=== PATIENT | female | born 1990 | race Caucasian/White ===

== ENCOUNTER 2019-03-20 04:13 | Inpatient (IN) | payer SELFPAY ==
--- NOTE | 2019-03-20 04:50 | PCM.HP.OB ---
- Problem List (1) Active labor at term Status: Acute History Date of Admission: 03/20/19 Final HORTENCIA: 03/13/19 Gestational age: 41 Weeks and 0 Days History of this : This is a 28 year-old, at 41 weeks gestational age presents IAL 4 cm dilated. she has a history of previous vaginal births and has had a complicated by varicose veins and pelvic pain. She has been receiving care by the clay digger Shruthi Smith and has had no significant complications but her drafter chief design was recommending hospital due to her varicose veins. NST - FHR Rate Baby A Baseline: 130 Variability:: Moderate Accelerations:: 15 x 15 Decelerations:: None NST Reactive:: Yes FHR Category:: Category I Uterine Activity:: q3-4 History Past Pregnancies: Past Pregnancies 2 miscarriages and 4 previous term vaginal deliveries uncomplicated Expected Infant Delivery Method: Spontaneous Vaginal Review of Systems Constitutional: Denies: Fever, Malaise Eyes: Denies: Blurred vision, Vision Change HEENT: Denies: Head Aches, Visual Changes Cardiovascular: Denies: Chest Pain, Palpitations Respiratory: Denies: Cough, Shortness of Breath, Wheezing Gastrointestinal: Denies: Abdominal Pain, Diarrhea, Nausea, Vomiting Genitourinary: Denies: Dysuria, Hematuria Musculoskeletal: Denies: Joint Pain, Muscle pain Skin: Denies: Lesions, Rash Neurological: Denies: Blurred vision, Focal weakness, Headaches Psychiatric: Denies: Anxiety, Depression Endocrine: Denies: Heat/ Cold Intolerance Hematologic/ Lymphatic: Denies: Easy Bruising, Easy Bleeding Physical Exam General: Alert, Cooperative, No apparent distress HEENT: Atraumatic, Normocephalic. Negative for: Thyromegaly, Lymphadenopathy Cardiovascular: Regular rate Lungs: Normal air movement Abdomen: Soft, Non Tender, Gravid Neurological: Deep Tendon Reflexes 2+/4 and Symmetrical, Neuro grossly intact. Negative for: Clonus PRIMARY EDUCATION PROFESSOR: Normal external genitalia. Negative for: Vulvar lesions Estimated gestational size: Appropriate for gestational size Presentation: Cephalic Cervix Dilation (cm): 4 Station: -1 Effacement (%): 90 Assessment/Plan All Active Problems Active labor at term (Acute) This is a 28 year-old, at 41 weeks gestational age presents IAL. Patient presents IAL, plan expectant management for , pitocin/AROM PRN if needed. Pain management: Prefers minimal intervention. GBS unknown, no risk factors. Rapid GBS sent. Management of any complications: Large varicose veins I have reviewed the [facility] and made any clinically relevant updates.
[2019-03-20] MEDS: 0.9% Saline Lock 10 ML Syringe IV (05:00)
[2019-03-20 05:24] LABS: Absolute Lymphocyte Count 1.11 X10^3/uL (0.83-4.51); Basophil# 0.05 X10^3/uL; Basophil% 0.8 % (0-1); Eosinophil# 0.07 X10^3/uL; Eosinophils% 1.1 % (0-5); Hematocrit 38.9 % (37-47); Hemoglobin 13.5 g/dL (12.0-15.0); Lymphocyte # 1.11 X10^3/ul (4.0); Lymphocyte % 16.7 % (19-41); Mean Corp Hgb Conc 34.7 g/dL (32-36); Mean Corpuscular Hgb 30.9 pg (27.0-32.0); Mean Platelet Vol. 10.1 fl (6.2-12.0); Monocyte# 0.43 X10^3/uL; Monocyte% 6.5 % (0-10); NRBC Flagged by Analyzer 0 % (0-5); Neutrophil # 4.95 X10^3/uL (2.7-7.7); Neutrophil % 74.1 % (47-70); Platelet Count 103 K/mm3 (150-450); RBC Distribution Width CV 13.4 % (11.6-14.6); RBC Distribution Width SD 43.4 fl (35.1-43.9); Red Blood Count 4.37 M/mm3 (4.2-5.4); White Blood Count 6.7 K/mm3 (4.4-11.0)
[2019-03-20 05:28] VITALS: BMI 30.3
[2019-03-20 07:11] LABS: HIV - WCH Non-Reactive (Nonreactive); Hepatitis B Surface Antigen Non-Reactive (Nonreactive); Hepatitis C Antibody Non-Reactive (Nonreactive)
[2019-03-20 07:42] LABS: Group B Strep DNA By PCR Negative (Negative); Internal Control PASS; Probe Check PASS; Specimen Processing Control PASS
[2019-03-20] MEDS: Oxytocin 30 units/NS 500 ml 30 UNITS/500 ML IV.SOLN 334 UNITS IV (07:55)
--- NOTE | 2019-03-20 08:41 | PCM.OPRPT ---
Problem List (1) Active labor at term Status: Acute Vaginal Delivery Maternal Presentation: Active Labor ial Amniotic Membrane Rupture Type: Artificial Amniotic Fluid Description: Clear Final HORTENCIA: 03/13/19 Gestational age: 41 Weeks and 0 Days Date of Procedure: 03/20/19 Pre-Operative Diagnosis: ial Post-Operative Diagnosis: same Surgery/ Procedure Performed: Spontaneous Vaginal Delivery Type of Anesthesia: None Description of Procedure: Patient began pushing and delivered the head in the JABIER presentation. The head was delivered atraumatically. The anterior and posterior shoulders delivered without complication followed by the rest of the infant and the was placed on the maternal abdomen. Delayed cord clamping was employed for approximately 60 seconds. Cord was clamped and cut and gentle traction was applied to the cord and the placenta delivered spontaneously immediately following it was noted to be intact with three-vessel cord. The perineum and vagina were inspected and noted to have no laceration. EBL was 100 cc. Patient and infant tolerated delivery well. Presentation: JABIER Placental Delivery Description: Spontaneous Cord Entanglement: None Estimated Blood Loss: 100 A gender: Male Episiotomy Description: None Laceration: None Medications given after delivery: IV Pitocin Complications: None Multi Select Codes - Urinary/Genital Urinary/Genital CPT Codes: 50517 Vaginal Delivery Only
[2019-03-20 10:33] LABS: Rubella IgG 270.9 IU/mL
[2019-03-20 13:11] VITALS: BP 94/54; PULSE 87; RESP 16; TEMP 36.8
[2019-03-20 15:53] VITALS: BP 111/60; PULSE 82; RESP 16; TEMP 37.1
[2019-03-20] MEDS: Naproxen 250 MG Tablet 500 MG PO (16:37)
--- NOTE | 2019-03-20 18:06 | NURSING ---
pt c/o pain on the outter side of her left foot that has multiple varicosities- pts foot elevated
[2019-03-20 19:46] VITALS: BP 106/64; PULSE 94; RESP 17; TEMP 36.4
[2019-03-20] MEDS: Acetaminophen 500 MG Tablet 1000 MG PO (19:47)
--- NOTE | 2019-03-20 22:22 | DCINST_ITS ---
Discharge Diet: No Restrictions Discharge Activity: Return to Normal Activity, May not drive while taking narcotic pain medications., May Shower May resume sexual activity in: 4-6 weeks Call your doctor if your incision/area has: Continuous Slow Oozing, Sudden Increased Bleeding, Increased Pain/ Swelling, Increased Redness, Foul Smelling Discharge Additional Instructions: If you experience any of the following, contact your healthcare provider. * Bleeding that soaks a pad every hour for 2 hours * Fever 100.4 or higher * Unrelieved incision or abdominal pain * Swelling, redness, discharge or bleeding from your incision or episiotomy site * Your incision begins to separate * Problems urinating (including inability to urinate or burning while urinating). * Visual changes * Severe headache * Flu-like symptoms * Pain or redness in one of both of your breasts * Pain, warmth, tenderness or swelling in your legs, especially the calf area * Frequent nausea and vomiting * Symptoms of depression or anxiety If you experience any of the following, call 911 or go to the nearest Emergency Room. * Chest pain * Problems breathing * Seizure activity * Partial or complete paralysis of a body part, slurred speech, weakness or drooping of the face, or a sudden inability to walk or hold your balance Allergies/Adverse Reactions: Allergies No Known Allergies Allergy (Verified 03/20/19 05:24) Please Follow Up With: Harriett Acevedo MD - [phone] When: Call to make an appointment with your doctor in 6 weeks. If you had elevated Blood pressure or 4th degree laceration you will need to be seen in 2 weeks. Primary Care Physician: Care Physician,No Primary [Primary Care Provider] - Test Results: Test results from this visit will be discussed in further detail at your follow- up appointment, if applicable.
--- NOTE | 2019-03-20 22:22 | PCM.DCVAG ---
Discharge Diet: No Restrictions Discharge Activity: Return to Normal Activity, May not drive while taking narcotic pain medications., May Shower May resume sexual activity in: 4-6 weeks Call your doctor if your incision/area has: Continuous Slow Oozing, Sudden Increased Bleeding, Increased Pain/ Swelling, Increased Redness, Foul Smelling Discharge Additional Instructions: If you experience any of the following, contact your healthcare provider. Bleeding that soaks a pad every hour for 2 hours Fever 100.4 or higher Unrelieved incision or abdominal pain Swelling, redness, discharge or bleeding from your incision or episiotomy site Your incision begins to separate Problems urinating (including inability to urinate or burning while urinating). Visual changes Severe headache Flu-like symptoms Pain or redness in one of both of your breasts Pain, warmth, tenderness or swelling in your legs, especially the calf area Frequent nausea and vomiting Symptoms of depression or anxiety If you experience any of the following, call 911 or go to the nearest Emergency Room. Chest pain Problems breathing Seizure activity Partial or complete paralysis of a body part, slurred speech, weakness or drooping of the face, or a sudden inability to walk or hold your balance Allergies/Adverse Reactions: Allergies No Known Allergies Allergy (Verified 03/20/19 05:24) Please Follow Up With: Harriett Acevedo MD - [phone] When: Call to make an appointment with your doctor in 6 weeks. If you had elevated Blood pressure or 4th degree laceration you will need to be seen in 2 weeks. Primary Care Physician: Care Physician,No Primary [Primary Care Provider] - Test Results: Test results from this visit will be discussed in further detail at your follow-up appointment, if applicable.
[2019-03-21 00:05] VITALS: BP 99/57; PULSE 84; RESP 17
[2019-03-21] MEDS: Naproxen 250 MG Tablet 500 MG PO (00:07)
[2019-03-21 03:32] VITALS: BP 109/67; PULSE 90; RESP 16; TEMP 36.2
[2019-03-21] MEDS: Acetaminophen 500 MG Tablet 1000 MG PO (03:33)
[2019-03-21 08:00] VITALS: BP 101/55; PULSE 77; RESP 16; TEMP 36.3
--- NOTE | 2019-03-21 08:31 | PCM.PN.OB ---
Patient Problems: Active and Suspected Problems Active labor at term (Acute) Subjective: doing well no complaints pain controlled no CP SOB N V ambulating well tolerating po lochia moderate, going well - Physical Exam Vitals/I&O's: Vital Signs Temp Pulse Resp BP 97.1 F L 90 16 109/67 03/21/19 03:32 03/21/19 03:32 03/21/19 03:32 03/21/19 03:32 Oxygen Delivery Method Room Air Weight: 176 lb 12.972 oz Body Mass Index (BMI) 30.3 Intake and Output for Last 24 Hours 03/19/19 03/20/19 03/21/19 23:59 23:59 23:59 Intake Total 1100.00 / 1100.00 Output Total 700 / 700 Balance 400.00 / 400.00 General: Alert, Oriented x3 Abdomen: Soft, Non Tender, Non-Distended, - - FF below U Laboratory Results 03/20/19 05:00: Rubella IgG Antibody 270.9 03/20/19 10:15: Screen NEGATIVE, Baby's Blood Type O POSITIVE, Baby's CHANCE NEGATIVE Current Medications Acetaminophen (Tylenol) 1,000 mg PO Q8H PRN PRN PRN Reason: Pain Score 1-3/10 Last Admin: 03/21/19 03:33 Dose: 1,000 mg Documented by: Bisacodyl (Dulcolax) 10 mg RECTAL UD PRN PRN Reason: If no BM Dibucaine (Dibucaine) 1 applic TOPICAL TID PRN PRN; Protocol PRN Reason: Discomfort Hydrocortisone (Hytone) 1 applic TOPICAL TID PRN PRN; Protocol PRN Reason: Discomfort Methylergonovine Maleate (Methergine) 0.2 mg IM X1 PRN PRN Reason: Excess bleeding/uterine atony Naproxen (Naprosyn) 500 mg PO Q8H PRN PRN PRN Reason: Pain Score 1-3/10 Last Admin: 03/21/19 00:07 Dose: 500 mg Documented by: Ondansetron HCl (Zofran) 4 mg IV Q4H PRN PRN PRN Reason: Nausea Oxycodone HCl (Oxyir) 5 - 10 mg PO Q4H PRN PRN PRN Reason: Pain Score 4-10/10 Senna/Docusate Sodium (Senokot-S, Eve-Colace) 1 - 2 tablet PO DAILY PRN PRN PRN Reason: Constipation Simethicone (Mylicon) 80 mg PO PCHS PRN PRN Reason: Indigestion/Stomach pain Sodium Chloride () 5 - 15 ml IV UD PRN PRN Reason: SALINE FLUSH Medical Necessity - Tobacco Use Smoking Status: Never smoker Assessment/Plan All Active Problems Active labor at term (Acute) s/p PPD # 1 1. routine post delivery care 2. breast feeding- support given 3. rh negative-rhogam candidate 4. rubella immune 5. home today. 6. Considering IUD for contraception due to severity of varicose veins. Minimal swelling left ankle today.
[2019-03-21 13:50] VITALS: BP 92/53; PULSE 84; RESP 16; TEMP 36.2; O2SAT 98
[2019-03-27 02:45] LABS: Rapid Plasmin Reagin (RPR) NONREACTIVE (NONREACTIVE)
== END 2019-03-21 17:45 | disposition home or self-care (01) | DRG 807 ==
PROVIDERS: Admitting Provider Obstetrics & Gynecology; Referring Provider Obstetrics & Gynecology; Visit Provider Obstetrics & Gynecology
DX: O87.4 Varicose veins of lower extremity in the puerperium (principal); Z37.0 Single live birth; O48.0 Post-term pregnancy; Z3A.40 40 weeks gestation of pregnancy
CPT/HCPCS: 59025; 59050; 85025; 85461; 86592; 86703; 86762; 86803; 86850; 86900; 86901; 87081; 87340; 87653; 90384; 99218; A4216; G0378; J2790

== ENCOUNTER → 2019-05-30 13:09 | Outpatient (CLI) | payer OTHER, SELFPAY ==
[2019-05-30 10:16] VITALS: BMI 30.3
[2019-06-03 14:38] LABS: HPV Reflexed? NOT INDICATED
== END ==
PROVIDERS: Referring Provider Obstetrics & Gynecology; Visit Provider Obstetrics & Gynecology
DX: Z12.4 Encounter for screening for malignant neoplasm of cervix (principal)
CPT/HCPCS: 88175; G0145

== ENCOUNTER → 2024-07-21 | Outpatient (CLI) | payer SELFPAY ==
[2024-07-28 16:08] LABS: HPV APTIMA, High Risk Negative (Negative)
== END | disposition home or self-care (01) ==
LOC: LABSPEC 16:01
PROVIDERS: Referring Provider Obstetrics & Gynecology; Visit Provider Obstetrics & Gynecology
DX: Z12.4 Encounter for screening for malignant neoplasm of cervix (principal)
CPT/HCPCS: 87624; 88175; G0145

== ENCOUNTER → 2024-11-12 | Outpatient (CLI) | payer OTHER, SELFPAY ==
[2024-11-12 12:09] LABS: Hematocrit 39.4 % (37-47); Hemoglobin 13.9 g/dL (12.0-15.0); Immature Granulocytes Count 0.020 X10^3/uL (0.0-0.0); Mean Corp Hgb Conc 35.3 g/dL (32-36); Mean Corpuscular Volume 87.8 fL (81-99); Mean Platelet Vol. 10.3 fl (6.2-12.0); NRBC Flagged by Analyzer 0 % (0-5); Platelet Count 163 K/mm3 (150-450); RBC Distribution Width CV 12.4 % (11.6-14.6); RBC Distribution Width SD 39.4 fl (35.1-43.9); Red Blood Count 4.49 M/mm3 (4.2-5.4); White Blood Count 5.5 K/mm3 (4.4-11.0)
[2024-11-12 13:07] LABS: HIV Nonreactive (Nonreactive); Hepatitis B Surface Antigen Nonreactive (Nonreactive); Hepatitis C Antibody Nonreactive (Nonreactive); Syphilis Antibodies Nonreactive (Nonreactive)
[2024-11-14 06:07] LABS: Chlamydia By Nucleic Acid AMP Negative (Negative); Gonococcus By Nucleic Acid AMP Negative (Negative)
== END | disposition home or self-care (01) ==
PROVIDERS: Obstetrics & Gynecology; Visit Provider Nurse Practitioner Women's Health
DX: O09.90 Supervision of high risk pregnancy, unspecified, unspecified trimester (principal); O99.210 Obesity complicating pregnancy, unspecified trimester; Z3A.00 Weeks of gestation of pregnancy not specified
CPT/HCPCS: 36415; 83036; 85025; 86703; 86762; 86780; 86803; 86850; 86900; 86901; 87086; 87088; 87340; 87491; 87591

== ENCOUNTER → 2024-12-03 | Outpatient (CLI) | payer MEDICAID, SELFPAY ==
--- NOTE | 2024-12-03 08:10 | US_ITS ---
PROCEDURE: TRANSVAGINAL W/PREG US 12/03/2024 REASON FOR EXAM: CERVICAL LENGTH TECHNIQUE: TRANSVAGINAL W/PREG US COMPARISON: None FINDINGS There is a live intrauterine . Position is cephalic. heart motion = 152 beats per minute. Cervix length = 4.0 cm and is closed. The cervical os is 1.5 cm from the margin of the placenta. The placenta is posterior, low lying, grade 1. An anechoic areas seen in the mid placenta with the appearance of the placenta Nieves. There is no visible abruption. Maximum vertical pocket of amniotic fluid = 4.2 cm Feel age equals 16 weeks 4 days Estimated due date May 16, 2025 US/Transvaginal w/Preg US IMPRESSION: The placenta is posterior, low lying, grade 1. An anechoic areas seen in the mi d placenta with the appearance of the placenta Nieves. There is no visible abruption. Reading Location: [facility]
== END | disposition home or self-care (01) ==
PROVIDERS: Referring Provider Obstetrics & Gynecology; Visit Provider Obstetrics & Gynecology
DX: O26.899 Other specified pregnancy related conditions, unspecified trimester (principal); Z67.91 Unspecified blood type, Rh negative; O20.9 Hemorrhage in early pregnancy, unspecified; Z3A.00 Weeks of gestation of pregnancy not specified
CPT/HCPCS: 36415; 76817; 86850; 86900; 86901

== ENCOUNTER → 2024-12-30 | Outpatient (CLI) | payer SELFPAY, MEDICAID ==
--- NOTE | 2024-12-30 12:17 | US_ITS ---
PROCEDURE: OB ANATOMY W/ TRANSVAGINAL 12/30/2024 REASON FOR EXAM: ANATOMY US TECHNIQUE: OB ANATOMY W/ TRANSVAGINAL COMPARISON: None FINDINGS LMP: August 09, 2024 Number: 1 Position: Vertex Placental Position: Posterior and not low-lying Placental Abnormalities: No evidence of previa. DIMENSIONS: Biparietal Diameter: 4.5 cm: 19 weeks and 5 days: 21 percentile/ Head Circumference: 17.1 cm: 19 weeks and 5 days:/ Abdominal Circumference: 15.1 cm: 20 weeks and 2 days:/ Femur Length: 3.2 cm: 19 weeks and 6 days:/ ESTIMATED WEIGHT: 330 g plus/-50 g ESTIMATED WEIGHT PERCENTILE (24+ weeks): 27 ESTIMATED GESTATIONAL AGE: Baseline: 20 weeks and 3 days By Ultrasound: 19 weeks and 5 days ESTIMATED DATE OF DELIVERY: Baseline: May 16, 2024 By Ultrasound: May 21, 2024 BIOPHYSICAL ASSESSMENT: Amniotic Fluid Volume: 4.6 cm Amniotic Fluid Index: Within normal limits (8-24 cm normal range) Cardiac Motion: 152 beats per minute (average) Trunk and Limb Motion: Present. MATERNAL ANATOMY: Adnexa: Both maternal ovaries are visualized and unremarkable. Cervical Length (if measured): 4.3 cm ANATOMY: Spine: Unremarkable Cranium: Unremarkable Cerebellum: Unremarkable Cisterna Magna: Unremarkable Cavum Septum Pellucidi: Unremarkable Lateral Ventricles: Unremarkable Choroid Plexus: Unremarkable Midline Falx: Unremarkable Nuchal Fold: Unremarkable Upper Lip: Unremarkable Heart: Unremarkable Stomach: Unremarkable Kidneys: Unremarkable Bladder: Unremarkable Umbilical Cord: Normal placental insertion. cord insertion not seen well. Extremities: Unremarkable US/OB Anatomy w/ Transvaginal IMPRESSION: Single live intrauterine gestation with a mean gestational age of 19 weeks and 5 days. Reading Location: [id number]
--- OUTSIDE RECORDS SUMMARY | 2024-12-30 20:55 | XMS RPT_ITS | CCD ---
Author Organization [facility] Care Team Providers Care Bulldozer/Loader/Compactor/Scraper Name Role Phone Kristina HERNADEZ, Dr. Lorenzana Attending Provider [phone] Kristina HERNADEZ, Dr. Lorenzana Referring Provider [phone] Clara Araiza RN Attending Provider Yadi Herrera Attending Provider [phone] Kristina HERNADEZ, Dr. Lorenzana Attending Provider Dr. Toma Gautam DO Attending Provider Kristina HERNADEZ, Dr. Lorenzana Referring Provider [phone] Care Physician, No Primary Primary Care Provider Unavailable Care Physician, No Primary Referring Provider Un available Harriett Acevedo Attending Unavailable Harriett Acevedo Referring Unavailable Harriett Acevedo Referring Unavailable Harriett Acevedo Attending Unavailable Care Physician, No Primary Primary Care Unava ilable Care Physician, No Primary Primary Care Unava ilable Care Physician, No Primary Referring Unava ilable Toma Gautam Attending Clara Dodson Attending Unavailable Harriett Acevedo Attending Unavailable Harriett Acevedo Attending Unavailable Harriett Acevedo Referring Unavailable Care Physician, No Primary Primary Care Unava ilable Care Physician, No Primary Primary Care Unava ilable Care Physician, No Primary Referring Unava ilable Toma Gautam Attending Harriett Ryan Attending Unavailable Toma Gautam Attending Yadi Blanton NP Attending Unavailable Medications Current Medications Medication Drug Class(es) Dates Sig (Normalized) Sig (Original) docosahexaenoic acid 200 mg oral capsule (6 sources) Start: 11-11-2024 Docosahexaenoic Acid ( Dha) 200 mg capsule Active mg PO November 11, 2024 12:00am Completed/Discontinued Medications Medication Drug Class(es) Dates Sig (Normalized) Sig (Original) levonorgestrel 0.743504 mg/hr intrauterine system (7 sources) Progestin, Progestin-containi ng Intrauterine Device Start: 07-21-2024 End: 11-11-2024 Levonorgestrel (Liletta) 20.4 mcg/24 hr (8 yrs) 52 mg intrauterine device Discontinued 1 NMA INTRA-UTER ONCE July 21, 2024 12:00am November 11, 2024 9:28am as a single dose Problems Problem Classification Problem Date Documented Da te Episodic/Chronic Cancer of cervix (20 sources) Atypical squamous cells of undetermined significance on cervical Papanicolaou smear; Translations: [Atypical squamous cells of undetermined significance on cytologic smear of cervix (ASC-US)] Onset: 12-30-2024 08-05-2024 Episodic Comment on above: pap in 2019 negative . pap 2024 ascus w/neg hpv=repeat pap 2027 Hemorrhage during ; abruptio placenta; placenta previa (16 sources) Antepartum hemorrhage; Translations: [Hemorrhage in early , unspecified] Onset: 12-30-2024 12-02-2024 Episodic Comment on above: pelvic rest + repeat scan at 28 weeks. rhogam 16 weeks. Other complications of (20 sources) Maternal obesity complicating , childbirth and the puerperium, antepartum; Translations: [Obesity complicating , unspecified trimester] 11-11-2024 Chronic Comment on above: BMI 30.9; HgBA1C ord ered w/NOB Other complications of (2 sources) Obesity complicating , unspecified trimester; Translations: [Obesity complicating , unspecified trimester] Onset: 11-12-2024 Chronic Other complications of (20 sources) H/O: miscarriage; Translations: [Supervision of with other poor reproductive or obstetric history, unspecified trimester] 11-11-2024 Episodic Comment on above: x2; 2018 Other complications of (20 sources) Multigravida of advanced maternal age; Translations: [Supervision of elderly multigravida, unspecified trimester] 11-12-2024 Episodic Comment on above: genetic counseling- declined testing. Other complications of (20 sources) High risk ; Translations: [Supervision of high risk , unspecified, unspecified trimester] 11-11-2024 Episodic Comment on above: , HORTENCIA 05/16, PC: Kirk Celaya Steven, Marline & Fab, : Helio Other complications of (20 sources) RhD negative; Translations: [Other specified related conditions, unspecified trimester] 11-11-2024 Episodic Comment on above: A-, Rhogam as needed and PRN Other complications of (2 sources) Supervision of high risk , unspecified, unspecified trimester; Translations: [Supervision of high risk , unspecified, unspecified trimester] Onset: 12-30-2024 Episodic Other complications of (1 source) Other specified related conditions, unspecified trimester; Translations: [Other specified related conditions, unspecified trimester] Onset: 12-30-2024 Episodic Other complications of (1 source) Supervision of elderly multigravida, unspecified trimester; Translations: [Supervision of elderly multigravida, unspecified trimester] Onset: 12-30-2024 Episodic Other complications of (1 source) Supervision of with other poor reproductive or obstetric history, unspecified trimester; Translations: [Supervision of with other poor reproductive or obstetric history, unspecified trimester] Onset: 12-30-2024 Episodic Other and delivery including normal (20 sources) Normal labor; Translations: [] 03-20-2019 Episodic Comment on above: Discussed genetic/ca rrier testing - declined Other screening for suspected conditions (not mental disorders or infectious disease) (1 source) Encounter for screening for malignant neoplasm of cervix; Translations: [Encounter for screening for malignant neoplasm of cervix] Onset: 11-21-2024 Episodic Other upper respiratory disease (7 sources) Seasonal allergy; Translations: [Other seasonal allergic rhinitis] 07-21-2024 Chronic Residual codes; unclassified (20 sources) Family history of genetic disorder carrier; Translations: [Family history of carrier of genetic disease] 11-11-2024 Episodic Comment on above: Sister & brother in law carriers for Cockayne Syndrome and have children dx with or passed from Residual codes; unclassified (1 source) Unspecified blood type, Rh negative; Translations: [Unspecified blood type, Rh negative] Onset: 12-30-2024 Episodic Residual codes; unclassified (1 source) Family history of carrier of genetic disease; Translations: [Family history of carrier of genetic disease] Onset: 12-30-2024 Episodic Residual codes; unclassified (1 source) 16 weeks gestation of ; Translations: [16 weeks gestation of ] Onset: 12-30-2024 Episodic Residual codes; unclassified (1 source) 15 weeks gestation of ; Translations: [15 weeks gestation of ] Onset: 12-17-2024 Episodic Residual codes; unclassified (1 source) 13 weeks gestation of ; Translations: [13 weeks gestation of ] Onset: 12-08-2024 Episodic Results Test Name Value Interpretation Reference Range Facility OB Anatomy w/ Transvaginalon 12-30-2024 OB Anatomy w/ Transvaginal [facility] Imaging Services [address] [place] [address] OB Anatomy w/ Transvaginal MR#: [id number] Acct: [id number] Name: SHARA MONTES Rep #: [id number] : 1990 F 34 From: Bebeto page MD PCP: Care Physician,No Primary Status: REG CLI Study: OB Anatomy w/ Transvaginal Date of Exam: 12/30 Exam# [id number] Ordering Dr: Harriett Acevedo PROCEDURE: OB ANATOMY W/ TRANSVAGINAL 12/30/2024 REASON FOR EXAM: ANATOMY US TECHNIQUE: OB ANATOMY W/ TRANSVAGINAL COMPARISON: None FINDINGS LMP: August 09, 2024 Number: 1 Position: Vertex Placental Position: Posterior and not low-lying Placental Abnormalities: No evidence of previa. DIMENSIONS: Biparietal Diameter: 4.5 cm: 19 weeks and 5 days: 21 percentile/ Head Circumference: 17.1 cm: 19 weeks and 5 days:/ Abdominal Circumference: 15.1 cm: 20 weeks and 2 days:/ Femur Length: 3.2 cm: 19 weeks and 6 days:/ ESTIMATED WEIGHT: 330 g plus/-50 g ESTIMATED WEIGHT PERCENTILE (24+ weeks): 27 ESTIMATED GESTATIONAL AGE: Baseline: 20 weeks and 3 days By Ultrasound: 19 weeks and 5 days ESTIMATED DATE OF DELIVERY: Baseline: May 16, 2024 By Ultrasound: May 21, 2024 BIOPHYSICAL ASSESSMENT: Amniotic Fluid Volume: 4.6 cm Amniotic Fluid Index: Within normal limits (8-24 cm normal range) Cardiac Motion: 152 beats per minute (average) Trunk and Limb Motion: Present. MATERNAL ANATOMY: Adnexa: Both maternal ovaries are visualized and unremarkable. Cervical Length (if measured): 4.3 cm ANATOMY: Spine: Unremarkable Cranium: Unremarkable Cerebellum: Unremarkable Cisterna Magna: Unremarkable Cavum Septum Pellucidi: Unremarkable Lateral Ventricles: Unremarkable Choroid Plexus: Unremarkable Midline Falx: Unremarkable Nuchal Fold: Unremarkable Upper Lip: Unremarkable Heart: Unremarkable Stomach: Unremarkable Kidneys: Unremarkable Bladder: Unremarkable Umbilical Cord: Normal placental insertion. cord insertion not seen well. Extremities: Unremarkable US/OB Anatomy w/ Transvaginal IMPRESSION: Single live intrauterine gestation with a mean gestational age of 19 weeks and 5 days. Reading Location: [id number] CC: Dr. Harriett Acevedo MD; No Primary Care Physician Nuclear Chemistry Technician: Signed Normal [facility] Costumer Assistant Office Visit Reporton 12-30-2024 Costumer Assistant Office Visit Report [facility]'s [address], [address] [place] [address] OFFICE VISIT Date of Service: 12/30/24 MR#: [id number] Acct: [id number] Name: SHARA MONTES Rep #: [id number] : 1990 Provider: Dr. Toma Sage DO Age/Sex: 34/F Location: [facility] [place] Status: Signed Intake Vital Signs 11/12/24 10:39 12/03/24 09:23 12/30/24 10:13 12/30/24 10:13 Height 5 ft 4 in 5 ft 4 in 5 ft 4 in 5 ft 4 in Weight: 183 lb BMI 31.4 BP 98/66 Intake Visit Reasons: 20wk ob *ok per SM Landmen Required: No Is patient in pain?: No Allergies No Known Allergies Allergy (Verified 12/30/24 10:12) Medications ???Medication ???Instructions ???Recorded ???Confirmed ???Type docosahexaenoic acid 200 mg mg PO 11/11/24 12/30/24 History capsule ( DHA) Last Menstrual Period: 08/09/24 Zika: Zika virus screening: Negative : No PFSH PFSH Medical History Seasonal allergies Family History Grandmother Colon cancer, Onset Age: 81 Hypertension Sister Hypertension, Onset Age: 40 Grandfather CVA (cerebral vascular accident), Onset Age: 75 Social History adopted: No household members: spouse and children number of children: 5 current occupation: [employer] current occupational exposures/hazards: No pets and animals: Yes pets and animals: farm animals history of recent travel: Yes (September 2024 - ) out of state: Yes out of country: No sexually active: Yes Smoking Status: Never smoker second hand exposure: No alcohol intake: never substance use type: does not use well-balanced diet: daily or most days caffeine: Yes Type: coffee Number of servings: 1 eating out: rarely or never during the past year weight has: remained stable what type of physical activity do you participate in: none kiana/sabianism: Spiritism seatbelt use: always do you feel safe at home: Yes additional social history: : Liliane Pritchard History 8 Elective abortions Hx Para 5 Spontaneous abortions 2 Hx # Term Pregnancies 5 Ectopic pregnancies Hx # Pregnancies Multiple births # of living children 5 Past Pregnancies Del. Date Name GA/Weeks Outcome Route Bth Weight Infant Gen Labor Lgth Anesthesia Del Locatn Provider FOB 12/26/10 Belia 41 live - full term 7lbs 5oz Female none [facility] Helio 07/15/12 Kirk 40 live - full term 7lbs 12oz Male none Home Helio 05/31/14 Sinan 40 live - full term 7lbs 8oz Male none Home Helio 05/05/16 Pratima 40 live - full term 7lbs 2oz Male none Home Helio 06/14/17 7 spontaneous 04/13/18 10 spontaneous 03/20/19 Fab 40 live - full term 7lbs 13oz Male none [facility] Efraín Cadet Delivery Date: 03/20/19 Last Updated by: Clara Arazia RN Vein problems, Consultant Rn KRYSTYNA for delivery HPI 20wk ob *ok per Details: SHARA MONTES is a 34 year old who presents for routine OB visit. OB Visit HORTENCIA Calculator Estimated Delivery Date Method Current WG Current Estimate 05/16/25 LMP (Certain) 20w 3d Initial Weight: Not Recorded Date -???-???-???-???-???- ???-???-???-???-???-? ??-???- EGA Weight BP Urine Prot -???-???-???-???-???- ???-???-???-???-???-? ??-???- Glucose FHR FuHt Pres Dilation -???-???-???-???-???- ???-???-???-???-???-? ??-???- Effaced St Visit Note 11/12/24 -???-???-???-???-???- ???-???-???-???-???-? ??-???- 13w 4d 176 lb 115/76 -???-???-???-???-???- ???-???-???-???-???-? ??-???- 154 -???-???-???-???-???- ???-???-???-???-???-? ??-???- - CRL 6.8c m cons with LMP 11/25/24 -???-???-???-???-???- ???-???-???-???-???-? ??-???- 15w 3d 178 lb 106/69 Negative -???-???-???-???-???- ???-???-???-???-???-? ??-???- Negative 150 -???-???-???-???-???- ???-???-???-???-???-? ??-???- JV- patient is being seen urgently today for bleeding. She states it is mild and started sunday, went to brown sunday, red sunday, light pink yesterday, and nothing today. She denies recent intercourse or heavy lifting. ultrasound is reassuring and on exam there is a cervical ectropion. patient reassured. if bleeding starts again this week will order a cervical length ultrasound prior to her 20 week scan. 12/30/24 -???-???-???-???-???- ???-???-???-???-???-? ??-???- 20w 3d 183 lb 98/66 Negative -???-???-???-???-???- ???-???-???-???-???-? ??-???- Negative 145 -???-???-???-???-???- ???-???-???-???-???-? ??-???- JV- no furth er bleeding x 2 weeks now. has anatomy scan today at 12:30. has a lot of dilated varicosities and one that feels like a tiny clot at her nieto. If no problems on us t (more content not included)... Normal [facility] Costumer Assistant Office Visit Reporton 12-03-2024 Costumer Assistant Office Visit Report [facility]'s [address], [address] [place] [address] OFFICE VISIT Date of Service: 12/03/24 MR#: [id number] Acct: [id number] Name: SHARA MONTES Rep #: [id number] : 1990 Provider: Dr. Toam Sage DO Age/Sex: 34/F Location: [facility] [place] Status: Signed Intake Vital Signs 11/25/24 13:01 12/03/24 09:21 12/03/24 09:23 Height 5 ft 4 in 5 ft 4 in 5 ft 4 in Weight: 178 lb 176 lb 2 oz BMI 30.5 30.2 BP 106/69 116/77 [facility] Required: No Is patient in pain?: No Allergies No Known Allergies Allergy (Verified 12/03/24 09:22) Medications ???Medication ???Instructions ???Recorded ???Confirmed ???Type docosahexaenoic acid 200 mg mg PO 11/11/24 12/03/24 History capsule ( DHA) Last Menstrual Period: 08/09/24 Zika: Zika virus screening: Negative : No PFSH PFSH Medical History Seasonal allergies Family History Grandmother Colon cancer, Onset Age: 81 Hypertension Sister Hypertension, Onset Age: 40 Grandfather CVA (cerebral vascular accident), Onset Age: 75 Social History adopted: No household members: spouse and children number of children: 5 current occupation: [employer] current occupational exposures/hazards: No pets and animals: Yes pets and animals: farm animals history of recent travel: Yes (September 2024 - ) out of state: Yes out of country: No sexually active: Yes Smoking Status: Never smoker second hand exposure: No alcohol intake: never substance use type: does not use well-balanced diet: daily or most days caffeine: Yes Type: coffee Number of servings: 1 eating out: rarely or never during the past year weight has: remained stable what type of physical activity do you participate in: none kiana/sabianism: Spiritism seatbelt use: always do you feel safe at home: Yes additional social history: : Liliane Pritchard History 8 Elective abortions Hx Para 5 Spontaneous abortions 2 Hx # Term Pregnancies 5 Ectopic pregnancies Hx # Pregnancies Multiple births # of living children 5 Past Pregnancies Del. Date Name GA/Weeks Outcome Route Bth Weight Infant Gen Labor Lgth Anesthesia Del Locatn Provider FOB 12/26/10 Belia 41 live - full term 7lbs 5oz Female none [facility] 07/15/12 Kirk 40 live - full term 7lbs 12oz Male none Home Helio 05/31/14 Sinan 40 live - full term 7lbs 8oz Male none Home Helio 05/05/16 Rincon 40 live - full term 7lbs 2oz Male none Home Helio 06/14/17 7 spontaneous 04/13/18 10 spontaneous 03/20/19 Fab 40 live - full term 7lbs 13oz Male none [facility] S Helio Delivery Date: 03/20/19 Last Updated by: Clara Araiza RN Vein problems, Consultant Rn KRYSTYNA for delivery HPI Rhogam Details: SHARA MONTES is a 34 year old who presents for routine OB visit. OB Visit HORTENCIA Calculator Estimated Delivery Date Method Current WG Current Estimate 05/16/25 LMP (Certain) 17w 3d Initial Weight: Not Recorded Date -???-???-???-???-???- ???-???-???-???-???-? ??-???- EGA Weight BP Urine Prot -???-???-???-???-???- ???-???-???-???-???-? ??-???- Glucose FHR FuHt Pres Dilation -???-???-???-???-???- ???-???-???-???-???-? ??-???- Effaced St Visit Note 11/12/24 -???-???-???-???-???- ???-???-???-???-???-? ??-???- 13w 4d 176 lb 115/76 -???-???-???-???-???- ???-???-???-???-???-? ??-???- 154 -???-???-???-???-???- ???-???-???-???-???-? ??-???- SM- CRL 6.8c m cons with LMP 11/25/24 -???-???-???-???-???- ???-???-???-???-???-? ??-???- 15w 3d 178 lb 106/69 Negative -???-???-???-???-???- ???-???-???-???-???-? ??-???- Negative 150 -???-???-???-???-???- ???-???-???-???-???-? ??-???- JV- patient is being seen urgently today for bleeding. She states it is mild and started sunday, went to brown sunday, red sunday, light pink yesterday, and nothing today. She denies recent intercourse or heavy lifting. ultrasound is reassuring and on exam there is a cervical ectropion. patient reassured. if bleeding starts again this week will order a cervical length ultrasound prior to her 20 week scan. ACOG First Trimester First Trimester: Desire for , Alcohol, Tobacco Cessation, Illicit/Recreational Drug/Substance Use, Intimate Partner Violence, Barriers to care, Unstable Housing, Communication Barriers, Environmental/Work Hazards, Anticipated Course of Care, Toxoplasmosis Precations, Use of Any medications, Sexual activity, Exercise, Dental Care, Sauna/Hot tub use, Seat Belt use, Childb (more content not included)... Normal [facility] Transvaginal w/Preg USon Transvaginal w/Preg [facility] Imaging Services [address] [place], [place] [id number] Transvaginal w/Preg US MR#: [id number] Acct: [id number] Name: SHARA MONTES Rep #: [id number] : 1990 F 34 From: Kenneth Vasquez MD PCP: Care Physician,No Primary Status: REG CLI Study: Transvaginal w/Preg US Date of Exam: 12/03/24 Exam# [id number] Ordering Dr: Harriett Acevedo PROCEDURE: TRANSVAGINAL W/PREG US 12/03/2024 REASON FOR EXAM: CERVICAL LENGTH TECHNIQUE: TRANSVAGINAL W/PREG US COMPARISON: None FINDINGS There is a live intrauterine . Position is cephalic. heart motion = 152 beats per minute. Cervix length = 4.0 cm and is closed. The cervical os is 1.5 cm from the margin of the placenta. The placenta is posterior, low lying, grade 1. An anechoic areas seen in the mid placenta with the appearance of the placenta Nieves. There is no visible abruption. Maximum vertical pocket of amniotic fluid = 4.2 cm Feel age equals 16 weeks 4 days Estimated due date May 16, 2025 US/Transvaginal w/Preg US IMPRESSION: The placenta is posterior, low lying, grade 1. An anechoic areas seen in the mid placenta with the appearance of the placenta Nieves. There is no visible abruption. Reading Location: [facility] CC: Dr. Harriett Acevedo MD; No Primary Care Physician Nuclear Chemistry Technician: Signed Normal [facility] Type AND Screenon 12-03-2024 ABO and Rh group Nom (Bld) Blood group A Rh(D) negative Normal [facility] Comment on above: Order Comment: PN Performed By: #### B TS #### [facility] Laboratory [address] [place], [address] Laboratory - Chemistry and C hemistry - challengeOrdered By: Toma Tay on 11-25-2024 Glucose Ql (U) Negative [facility] Laboratory - UrinalysisOrder ed By: Toma Tay on 11-25-2024 Protein Ql (U) Negative [facility] Costumer Assistant Office Visit Reporton 11-25-2024 Costumer Assistant Office Visit Report [facility]'s [address], [address] [place] [address] OFFICE VISIT Date of Service: 11/25/24 MR#: [id number] Acct: [id number] Name: SHARA MONTES Rep #: [id number] : 1990 Provider: Dr. Toma Sage DO Age/Sex: 34/F Location: [facility] [place] [facility] Status: Signed Intake Vital Signs 11/12/24 10:39 11/25/24 13:01 Height 5 ft 4 in 5 ft 4 in Weight: 178 lb BMI 30.5 BP 106/69 Intake Visit Reasons: 15w3d, spotting since Sunday Chief Complaint: 15wk and spotting Landmen Required: No Is patient in pain?: No Allergies No Known Allergies Allergy (Verified 11/25/24 12:59) Medications ???Medication ???Instructions ???Recorded ???Confirmed ???Type docosahexaenoic acid 200 mg mg PO 11/11/24 11/25/24 History capsule ( DHA) Last Menstrual Period: 08/09/24 : No PFSH PFSH Medical History Seasonal allergies Family History Grandmother Colon cancer, Onset Age: 81 Hypertension Sister Hypertension, Onset Age: 40 Grandfather CVA (cerebral vascular accident), Onset Age: 75 Social History adopted: No household members: spouse and children number of children: 5 current occupation: [employer] current occupational exposures/hazards: No pets and animals: Yes pets and animals: farm animals history of recent travel: Yes (September 2024 - ) out of state: Yes out of country: No sexually active: Yes Smoking Status: Never smoker second hand exposure: No alcohol intake: never substance use type: does not use well-balanced diet: daily or most days caffeine: Yes Type: coffee Number of servings: 1 eating out: rarely or never during the past year weight has: remained stable what type of physical activity do you participate in: none kiana/sabianism: Spiritism seatbelt use: always do you feel safe at home: Yes additional social history: : Liliane Pritchard History 8 Elective abortions Hx Para 5 Spontaneous abortions 2 Hx # Term Pregnancies 5 Ectopic pregnancies Hx # Pregnancies Multiple births # of living children 5 Past Pregnancies Del. Date Name GA/Weeks Outcome Route Bth Weight Infant Gen Labor Lgth Anesthesia Del Locatn Provider FOB 12/26/10 Belia 41 live - full term 7lbs 5oz Female none [facility] 07/15/12 Kirk 40 live - full term 7lbs 12oz Male none Home Helio 05/31/14 Sinan 40 live - full term 7lbs 8oz Male none Home Helio 05/05/16 Rincon 40 live - full term 7lbs 2oz Male none Home Helio 06/14/17 7 spontaneous 04/13/18 10 spontaneous 03/20/19 Fab 40 live - full term 7lbs 13oz Male none [facility] Helio Delivery Date: 03/20/19 Last Updated by: Clara Araiza RN Vein problems, Consultant Rn KRYSTYNA for delivery HPI 15w3d, spotting since Sunday Details: SHARA MONTES is a 34 year old who presents for routine OB visit. OB Visit HORTENCIA Calculator Estimated Delivery Date Method Current WG Current Estimate 05/16/25 LMP (Certain) 15w 3d Initial Weight: Not Recorded Date -???-???-???-???-???- ???-???-???-???-???-? ??-???- EGA Weight BP Urine Prot -???-???-???-???-???- ???-???-???-???-???-? ??-???- Glucose FHR FuHt Pres Dilation -???-???-???-???-???- ???-???-???-???-???-? ??-???- Effaced St Visit Note 11/12/24 -???-???-???-???-???- ???-???-???-???-???-? ??-???- 13w 4d 176 lb 115/76 -???-???-???-???-???- ???-???-???-???-???-? ??-???- 154 -???-???-???-???-???- ???-???-???-???-???-? ??-???- SM- CRL 6.8c m cons with LMP 11/25/24 -???-???-???-???-???- ???-???-???-???-???-? ??-???- 15w 3d 178 lb 106/69 Negative -???-???-???-???-???- ???-???-???-???-???-? ??-???- Negative 150 -???-???-???-???-???- ???-???-???-???-???-? ??-???- JV- patient is being seen urgently today for bleeding. She states it is mild and started sunday, went to brown sunday, red sunday, light pink yesterday, and nothing today. She denies recent intercourse or heavy lifting. ultrasound is reassuring and on exam there is a cervical ectropion. patient reassured. if bleeding starts again this week will order a cervical length ultrasound prior to her 20 week scan. ACOG First Trimester First Trimester: Desire for , Alcohol, Tobacco Cessation, Illicit/Recreational Drug/Substance Use, Intimate Partner Violence, Barriers to care, Unstable Housing, Communication Barriers, Environmental/Work Hazards, Anticipated Course of Care, Toxoplasmosis Precations, Use of Any medications, Sexual activity, Exercise, Dental Care, Sauna/Hot tub use, Seat Belt use, Childbirth classes/Hospi (more content not included)... Normal [facility] Chlamydia/GC NING aptimaon CHLAMY,NUC ACID Negative Normal Negative [facility] Comment on above: Performed By: #### L 7000.1800, M100.2200 #### [facility] Laboratory [address] [place], [address] GC BY NUC ACID Negative Normal Negative [facility] Comment on above: Result Comment: Perf ormed at: =G - [facility] [address] [id number] Medical Accountant: Mariaelena Swenson MD, Phone: [phone] Performed By: #### L 7000.1800, M100.2200 #### [facility] [address] [place], [address] Urine Cultureon 11-14-2024 URC Mixed Gram Positive Organisms [place] Count 25,000-50,000 MIXC Mixed contaminants. Submit a new specimen if indicated. Normal [facility] Comment on above: Performed By: #### L 7000.1800, M100.2200 #### [facility] [address] [place], [address] Absolute lymphocyte countOrd ered By: Harriett Acevedo on 11-12-2024 Lymphocytes Auto (Unsp spec) [#/Vol] 1.33 10*3/uL 0.83-4.51 [facility] Absolute neutrophil countOrd ered By: Harriett Acevedo on 11-12-2024 Neutrophils (Bld) [#/Vol] 3.8 10*3/uL 2.0-7.7 [facility] Automated lymphocyte count a s percentage of total leukocytesOrdered By: Harriett Acevedo on 11-12-2024 Lymphocytes/100 WBC Auto (Unsp spec) 24.4 % 19-41 [facility] Basophil percentageOrdered B y: Harriett Acevedo on 11-12-2024 Basophils/100 WBC (Bld) 0.9 % 0-1 [facility] CBC W/Diff, Automatedon 07-0 2-2024 Absolute Lymph 1.33 X10 3/uL Normal 0.83-4.51 [facility] Comment on above: Performed By: #### L 3890.6006, L3890.6102, L509.8002, L100.0100, L509.4006, L501.9985, BTS, L3890.6301 #### [facility] [address] [place], [address] Absolute Neut 3.8 X10 3/uL Normal 2.0-7.7 [facility] Comment on above: Performed By: #### L 3890.6006, L3890.6102, L509.8002, L100.0100, L509.4006, L501.9985, BTS, L3890.6301 #### [facility] [address] [place], [address] Basophils/100 WBC (Bld) 0.9 % Normal 0-1 [facility] Comment on above: Performed By: #### L 3890.6006, L3890.6102, L509.8002, L100.0100, L509.4006, L501.9985, BTS, L3890.6301 #### [facility] [address] [place], [address] Eosinophils/100 WBC (Bld) 0.9 % Normal 0-5 [facility] Comment on above: Performed By: #### L 3890.6006, L3890.6102, L509.8002, L100.0100, L509.4006, L501.9985, BTS, L3890.6301 #### [facility] [address] [place], [address] Erythrocyte distribution width (RBC) [Ratio] 12.4 % Normal 11.6-14.6 [facility] Comment on above: Performed By: #### L 3890.6006, L3890.6102, L509.8002, L100.0100, L509.4006, L501.9985, BTS, L3890.6301 #### [facility] [address] [place], [address] Hematocrit (Bld) [Volume fraction] 39.4 % Normal 37-47 [facility] Comment on above: Performed By: #### L 3890.6006, L3890.6102, L509.8002, L100.0100, L509.4006, L501.9985, BTS, L3890.6301 #### [facility] [address] [place], [address] Hemoglobin (Bld) [Mass/Vol] 13.9 g/dL Normal 12.0-15.0 [facility] Comment on above: Performed By: #### L 3890.6006, L3890.6102, L509.8002, L100.0100, L509.4006, L501.9985, BTS, L3890.6301 #### [facility] [address] [place], [address] IG% 0.400 Normal 0.0-0.9 [facility] Comment on above: Result Comment: IG% - Immature Granulocytes (promyelocytes, myelocytes and metamyelocytes) > 1% indicates that a LEFT SHIFT is Present. Performed By: #### L 3890.6006, L3890.6102, L509.8002, L100.0100, L509.4006, L501.9985, BTS, L3890.6301 #### [facility] [address] [place], [address] Lymphocytes/100 WBC (Bld) 24.4 % Normal 19-41 [facility] Comment on above: Performed By: #### L 3890.6006, L3890.6102, L509.8002, L100.0100, L509.4006, L501.9985, BTS, L3890.6301 #### [facility] [address] [place], [address] MCH (RBC) [Entitic mass] 31.0 pg Normal 27.0-32.0 [facility] Comment on above: Performed By: #### L 3890.6006, L3890.6102, L509.8002, L100.0100, L509.4006, L501.9985, BTS, L3890.6301 #### [facility] [address] [place], [address] MCHC (RBC) [Mass/Vol] 35.3 g/dL Normal 32-36 [facility] Comment on above: Performed By: #### L 3890.6006, L3890.6102, L509.8002, L100.0100, L509.4006, L501.9985, BTS, L3890.6301 #### [facility] [address] [place], [address] MCV (RBC) [Entitic vol] 87.8 fL Normal 81-99 [facility] Comment on above: Performed By: #### L 3890.6006, L3890.6102, L509.8002, L100.0100, L509.4006, L501.9985, BTS, L3890.6301 #### [facility] [address] [place], [address] Monocytes/100 WBC (Bld) 4.8 % Normal 0-10 [facility] Comment on above: Performed By: #### L 3890.6006, L3890.6102, L509.8002, L100.0100, L509.4006, L501.9985, BTS, L3890.6301 #### [facility] [address] [place], [address] Neutrophils/100 WBC (Bld) 68.6 % Normal 47-70 [facility] Comment on above: Performed By: #### L 3890.6006, L3890.6102, L509.8002, L100.0100, L509.4006, L501.9985, BTS, L3890.6301 #### [facility] [address] [place], [address] Nucleated RBC (Bld) [#/Vol] 0 10*3/uL Normal 0-5 [facility] Comment on above: Performed By: #### L 3890.6006, L3890.6102, L509.8002, L100.0100, L509.4006, L501.9985, BTS, L3890.6301 #### [facility] [address] [place], [address] Platelet mean volume (Bld) [Entitic vol] 10.3 fL Normal 6.2-12.0 [facility] Comment on above: Performed By: #### L 3890.6006, L3890.6102, L509.8002, L100.0100, L509.4006, L501.9985, BTS, L3890.6301 #### [facility] [address] [place], [address] Platelets (Bld) [#/Vol] 163 10*3/uL Normal 150-450 [facility] Comment on above: Performed By: #### L 3890.6006, L3890.6102, L509.8002, L100.0100, L509.4006, L501.9985, BTS, L3890.6301 #### [facility] [address] [place], [address] RBC (Bld) [#/Vol] 4.49 10*6/uL Normal 4.2-5.4 [facility] Comment on above: Performed By: #### L 3890.6006, L3890.6102, L509.8002, L100.0100, L509.4006, L501.9985, BTS, L3890.6301 #### [facility] [address] [place], [place], [phone] (892) RDW SD 39.4 fl Normal 35.1-43.9 [facility] Comment on above: Performed By: #### L 3890.6006, L3890.6102, L509.8002, L100.0100, L509.4006, L501.9985, BTS, L3890.6301 #### [facility] [address] [place], [address] WBC (Bld) [#/Vol] 5.5 10*3/uL Normal 4.4-11.0 [facility] Comment on above: Performed By: #### L 3890.6006, L3890.6102, L509.8002, L100.0100, L509.4006, L501.9985, BTS, L3890.6301 #### [facility] [address] [place], [place], [phone] Chlamydia trachomatis rRNA d etection by probe and target amplification methodOrdered By: Harriett Acevedo on 11-12-2024 C. trachomatis rRNA NING+probe Ql (Unsp spec) Negative Negative [facility] Eosinophil percentageOrdered By: Harriett Acevedo on 11-12-2024 Eosinophils/100 WBC (Bld) 0.9 % 0-5 [facility] Erythrocyte distribution wid th ratioOrdered By: Harriett Acevedo on 11-12-2024 Erythrocyte distribution width (RBC) [Ratio] 12.4 % 11.6-14.6 [facility] Erythrocyte distribution wid th standard deviationOrdered By: Harriett Acevedo on 11-12-2024 Erythrocyte distribution width (RBC) [Ratio] 39.4 fl 35.1-43.9 [facility] HIVon 11-12-2024 HIV Non-Reactive Normal Nonreactive [facility] Comment on above: Result Comment: Non- Reactive Reactive Repeatedly reactive samples must be confirmed according to CDC recommended confirmatory algorithms. The subresults for either HIVAG or AHIV can be used as an aid in the selection of the confirmation algorithm for reactive samples. Send out specimens with Reactive results to [facility] for confirmation. Order the HIV antibody detection and differentiation: [id number] Performed By: #### L 3890.6006, L3890.6102, L509.8002, L100.0100, L509.4006, L501.9985, BTS, L3890.6301 ####[facility] [address] [place], [place], [phone] Hematocrit Auto (Bld) [Volum e fraction]Ordered By: Harriett Acevedo on 11-12-2024 Hematocrit (Bld) [Volume fraction] 39.4 % 37-47 [facility] Hemoglobin A1con 11-12-2024 HbA1c (Bld) [Mass fraction] 4.6 % Normal <=5.6 [facility] Comment on above: Result Comment: Norm al < 5.7 % Prediabetic 5.7 - 6.4 % Diabetic >or= 6.5 % Please note range changes. Performed By: #### L 3890.6006, L3890.6102, L509.8002, L100.0100, L509.4006, L501.9985, BTS, L3890.6301 ####[facility] [address] [place], [place], [id number] Hemoglobin A1c percentageOrd ered By: Harriett Acevedo on 11-12-2024 HbA1c (Bld) [Mass fraction] 4.6 % <5.7 [facility] Comment on above: Normal < 5.7 % Predi abetic 5.7 - 6.4 % Diabetic >or= 6.5 % Please note range changes. Hemoglobin measurementOrdere d By: Harriett Acevedo on 11-12-2024 Hemoglobin (Bld) [Mass/Vol] 13.9 g/dL 12.0-15.0 [facility] Hepatitis C Antibodyon 11-12 Hepatitis C Ab Non-Reactive Normal Nonreactive [facility] Comment on above: Result Comment: Reac tive: Presumptive evidence of antibodies to HCV. Follow CDC recommendations for supplemental testing. Non-Reactive: Antibodies to HCV were not detected; does not exclude the possibility of exposure to HCV Reactive Results are presumptive evidence of antibodies to HCV. Follow CDC recommendations for supplemental testing. Order confirmation testing: HCV Quant by PCR testing - HCVPCR #[id number] Non Reactive: < 0.8 Equivocal: >/= 0.8 to < 1.0 Reactive: >/= 1.0 The [facility] requires that a reactive/equivocal HCV antibody result be sent out for confirmation. HCV Quant by PCR testing. Performed By: #### L 3890.6006, L3890.6102, L509.8002, L100.0100, L509.4006, L501.9985, BTS, L3890.6301 ####[facility] [address] [place], [address] Immature granulocytes/100 WB C Auto (Bld)Ordered By: Harriett Acevedo on 11-12-2024 Immature granulocytes/100 WBC (Bld) 0.400 % 0.0-0.9 [facility] Comment on above: IG% - Immature Granu locytes (promyelocytes, myelocytes and metamyelocytes) > 1% indicates that a LEFT SHIFT is Present. L3890.6102on 11-12-2024 HEP B Surf Ag Non-Reactive Normal Nonreactive [facility] Comment on above: Result Comment: Reac tive: Presumptive evidence of HBV. Repeatedly reactive samples must be confirmed using a neutralization test ([employer] HBsAg Confirmatory Test) Non-Reactive: HBsAg not detected; does not exclude the possibility of exposure to HBV Performed By: #### L 3890.6006, L3890.6102, L509.8002, L100.0100, L509.4006, L501.9985, BTS, L3890.6301 ####[facility] [address] [place], [place], [id number] L509.4006on 11-12-2024 Rubella IgG REAC Normal Nonreactive [facility] Comment on above: Result Comment: Anti body Result: Interpretation Non-Reactive: Non-Immune Reactive: Immune The following results were obtained with the [employer] Rubella IgG assay. Results from assays of other manufacturers cannot be used interchangeably. Performed By: #### L 3890.6006, L3890.6102, L509.8002, L100.0100, L509.4006, L501.9985, BTS, L3890.6301 ####[facility] [address] [place], [address] Laboratory - Microbiology an d Antimicrobial susceptibilityOrdered By: Harriett Acevedo on 11-12-2024 HBV surface Ag Ql (S) Non-Reactive Nonreactive [facility] Comment on above: Reactive: Presumptiv e evidence of HBV. Repeatedly reactive samples must be confirmed using a neutralization test ([employer] HBsAg Confirmatory Test)Non-Reactive: HBsAg not detected; does not exclude the possibility of exposure to HBV MCV (mean corpuscular volume ) determinationOrdered By: Harriett Acevedo on 11-12-2024 MCV (RBC) [Entitic vol] 87.8 fL 81-99 [facility] Mean corpuscular hemoglobin (MCH) determinationOrdered By: Harriett Acevedo on 11-12-2024 MCH (RBC) [Entitic mass] 31.0 pg 27.0-32.0 [facility] Mean corpuscular hemoglobin concentration (MCHC) determinationOrdered By: Harriett Acevedo on 11-12-2024 MCHC (RBC) [Mass/Vol] 35.3 g/dL 32-36 [facility] Mean platelet volume determi nationOrdered By: Harriett Acevedo on 11-12-2024 Platelet mean volume (Bld) [Entitic vol] 10.3 fL 6.2-12.0 [facility] Monocyte percentageOrdered B y: Harriett Acevedo on 11-12-2024 Monocytes/100 WBC (Bld) 4.8 % 0-10 [facility] Neisseria gonorrhoeae nuclei c acid detection by amplified probe techniqueOrdered By: Harriett Acevedo on 11-12-2024 N. gonorrhoeae DNA NING+probe Ql (Unsp spec) Negative Negative [facility] Comment on above: Performed at: =[facility] [address], [place] [id number] Director: Mariaelena Swenson MD, Phone: [phone] Neutrophil percentageOrdered By: Harriett Acevedo on 11-12-2024 Neutrophils/100 WBC (Bld) 68.6 % 47-70 [facility] No Panel InformationOrdered By: Harriett Acevedo on 11-12-2024 HIV (1&2) Antibody Non-Reactive Nonreactive [facility] Comment on above: Non-ReactiveReactive Repeatedly reactive samples must be confirmed according to CDC recommended confirmatory algorithms. The subresults for either HIVAG or AHIV can be used as an aid in the selection of the confirmation algorithm for reactive samples.Send out specimens with Reactive results to [facility] for confirmation.Order the HIV antibody detection and differentiation: #[id number] Nucleated red blood cell per centageOrdered By: Harriett Acevedo on 11-12-2024 Nucleated RBC/100 WBC (Bld) [Ratio] 0 % 0-5 [facility] Costumer Assistant Office Visit Reporton 11-12-2024 Costumer Assistant Office Visit Report [facility] [address], [address] [place] [address] OFFICE VISIT Date of Service: 11/12/24 MR#: [id number] Acct: [id number] Name: SHARA MONTES Rep #: [id number] : 1990 Provider: Dr. Harriett gardiner MD Age/Sex: 34/F Location: [facility] Status: Signed Intake Vital Signs 07/21/24 11:02 11/12/24 10:39 Height 5 ft 4 in 5 ft 4 in Weight: 176 lb BMI 30.2 BP 115/76 Intake Visit Reasons: *EST* NOB LMP 08/09, HORTENCIA 05/16 Landmen Required: No Is patient in pain?: No Feel stressed/tense/nervou s/anxious/difficulty sleeping: not at all Allergies No Known Allergies Allergy (Verified 11/12/24 10:41) Medications ???Medication ???Instructions ???Recorded ???Confirmed ???Type docosahexaenoic acid 200 mg mg PO 11/11/24 11/12/24 History capsule ( DHA) Last Menstrual Period: 08/09/24 Zika: Zika virus screening: Negative [facility] PFS Medical History Seasonal allergies Family History Grandmother Colon cancer, Onset Age: 81 Hypertension Sister Hypertension, Onset Age: 40 Grandfather CVA (cerebral vascular accident), Onset Age: 75 Social History adopted: No household members: spouse and children number of children: 5 current occupation: [employer] current occupational exposures/hazards: No pets and animals: Yes pets and animals: farm animals history of recent travel: Yes (September 2024 - ) out of state: Yes out of country: No sexually active: Yes Smoking Status: Never smoker second hand exposure: No alcohol intake: never substance use type: does not use well-balanced diet: daily or most days caffeine: Yes Type: coffee Number of servings: 1 eating out: rarely or never during the past year weight has: remained stable what type of physical activity do you participate in: none kiana/sabianism: Spiritism seatbelt use: always do you feel safe at home: Yes additional social history: : Liliane Pritchard History 8 Elective abortions Hx Para 5 Spontaneous abortions 2 Hx # Term Pregnancies 5 Ectopic pregnancies Hx # Pregnancies Multiple births # of living children 5 Past Pregnancies Del. Date Name GA/Weeks Outcome Route Bth Weight Gen [facility]10 Belia 41 live - full term 7lbs 5oz Female none [facility] Helio 07/15/12 Kirk 40 live - full term 7lbs 12oz Male none Home Helio 05/31/14 Sinan 40 live - full term 7lbs 8oz Male none Home Helio 05/05/16 Pratima 40 live - full term 7lbs 2oz Male none Home Helio 06/14/17 7 spontaneous 04/13/18 10 spontaneous 03/20/19 Fab 40 live - full term 7lbs 13oz Male none [facility] Efraín Cadet Delivery Date: 03/20/19 Last Updated by: Clara Teodora, RN Vein problems, Consultant Rn KRYSTYNA for delivery HPI *EST* NOB LMP 08/09, HORTENCIA 05/16 Details: SHARA MONTES is a 34 year old who presents for New OB visit. OB Visit HORTENCIA Calculator Estimated Delivery Date Method Current WG Current Estimate 05/16/25 LMP (Certain) 13w 4d Estimated Due Date: 05/16/25 Initial Weight: Not Recorded Date -???-???-???-???-???- ???-???-???-???-???-? ??-???- EGA Weight BP Urine Prot -???-???-???-???-???- ???-???-???-???-???-? ??-???- Glucose FHR FuHt Pres Dilation -???-???-???-???-???- ???-???-???-???-???-? ??-???- Effaced St Visit Note 11/12/24 -???-???-???-???-???- ???-???-???-???-???-? ??-???- 13w 4d 176 lb 115/76 -???-???-???-???-???- ???-???-???-???-???-? ??-???- 154 -???-???-???-???-???- ???-???-???-???-???-? ??-???- SM- CRL 6.8c m cons with LMP Menstrual History Last Menstrual Period: 08/09/24 Reported LMP: definite Normal amount/duration: Yes Frequency in days: 28 On hormonal BC at conception: No hCG+: 09/11/24 Antepartum Record Genetic Screening: Congenital Heart Defect: Other, Neural Tube Defect: Other, Hemoglobinopathy Or Carrier: Other, Cystic Fibrosis: Other, Chromosome Abnormality: Partner (Niece with down syndrome), Justus-Sachs: Other, Hemophilia: Other, Intellectual Disability/Autism: Other, Recurrent Loss/Stillbirth: Patient (Miscarriage x2, Mat mom sister with stillbirth), Other Structural Defect: Other, Other Genetic Disease: Patient (Sister with children with cockayne syndrome) and Maternal Metabolic Disorder: Other Infection History: Live with someone with TB or Exposed to TB: No, Patient or Partner has history of Genital Herpes: No, Rash or Viral illness since last mentrual period: No, Prior GBS-Infected child: No, History of STD: No, HIV Infection: No, History of (more content not included)... Normal [facility] Platelet countOrdered By: Elena Acevedo on 11-12-2024 Platelets (Bld) [#/Vol] 163 10*3/uL 150-450 [facility] RBC Auto (Bld) [#/Vol]Ordere d By: Harriett Acevedo on 11-12-2024 RBC (Bld) [#/Vol] 4.49 10*6/uL 4.2-5.4 [facility] Syphilis Antibodieson 2024 Syphilis Abs Non-Reactive Normal Nonreactive [facility] Comment on above: Performed By: #### L 3890.6006, L3890.6102, L509.8002, L100.0100, L509.4006, L501.9985, BTS, L3890.6301 ####[facility] [address] [place], [place], [id number] Type AND Screenon 11-12-2024 Ab SCREEN GEL Negative Normal [facility] Comment on above: Order Comment: PN Performed By: #### L 3890.6006, L3890.6102, L509.8002, L100.0100, L509.4006, L501.9985, BTS, L3890.6301 ####[facility] [address] [place], [place], [id number] Urine cultureOrdered By: Royce Acevedo on 11-12-2024 Bacteria identified Cx Nom (U) Positive Abnormal [facility] White blood cell (WBC) count Ordered By: Harriett Kristina on 11-12-2024 WBC (Bld) [#/Vol] 5.5 10*3/uL 4.4-11.0 [facility] PAP IG HPV APTIMA 16/18,45on 07-28-2024 ADEQ Comment Normal . [facility] Comment on above: Order Comment: Speci men Comment: [id number] Specimen Comment: Source.............Cervix Specimen Comment: No. of containers..01 ThinPrep Vial Result Comment: Sati sfactory for evaluation. Endocervical and/or squamous metaplastic cells (endocervical component) are present. Performed By: #### L 7400.0280 #### [facility] [address] [place], [place], [id number] COMM . Normal . [facility] Comment on above: Order Comment: Speci men Comment: [id number] Specimen Comment: Source.............Cervix Specimen Comment: No. of containers..01 ThinPrep Vial Performed By: #### L 7400.0280 #### [facility] [address] [place], [place], [id number] COMMENT Comment Normal . [facility] Comment on above: Order Comment: Speci men Comment: [id number] Specimen Comment: Source.............Cervix Specimen Comment: No. of containers..01 ThinPrep Vial Result Comment: This liquid based ThinPrep(R) pap test was screened with the use of an image guided system. Performed By: #### L 7400.0280 #### [facility] [address] [place], [place], [id number] DIAG Comment Abnormal . [facility] Comment on above: Order Comment: Speci men Comment: [id number] Specimen Comment: Source.............Cervix Specimen Comment: No. of containers..01 ThinPrep Vial Result Comment: EPIT HELIAL CELL ABNORMALITY. ATYPICAL SQUAMOUS CELLS OF UNDETERMINED SIGNIFICANCE (ASC-US). Performed By: #### L 7400.0280 #### [facility] [address] [place], [place], [id number] HPV APTIMA, HR Negative Normal Negative [facility] Comment on above: Order Comment: Speci men Comment: [id number] Specimen Comment: Source.............Cervix Specimen Comment: No. of containers..01 ThinPrep Vial Result Comment: This nucleic acid amplification test detects fourteen high- risk HPV types (16,18,31,33,35,39,45,51,52,56,58,59,66,68) without differentiation. Performed By: #### L 7400.0280 #### [facility] [address] [place], [address] HPV Elda Rfx Comment Normal . [facility] Comment on above: Order Comment: Speci men Comment: [id number] Specimen Comment: Source.............Cervix Specimen Comment: No. of containers..01 ThinPrep Vial Result Comment: Crit erscott not met, HPV Genotype not performed. Performed at: - [facility] [id number] Medical Accountant: Mariaelena Swenson MD, Phone: [phone] Performed at: = - [facility] [address] [id number] Medical Accountant: Mariaelena Swenson MD, Phone: [phone] Performed By: #### L 7400.0280 #### [facility] [address] [place], [place], [id number] PAPSMR Comment Normal . [facility] Comment on above: Order Comment: Speci men Comment: [id number] Specimen Comment: Source.............Cervix Specimen Comment: No. of containers..01 ThinPrep Vial Result Comment: The Pap smear is a screening test designed to aid in the detection of premalignant and malignant conditions of the uterine cervix. It is not a diagnostic procedure and should not be used as the sole means of detecting cervical cancer. Both false-positive and false-negative reports do occur. Performed By: #### L 7400.0280 #### [facility] [address] [place], [place], [id number] Path.prov.IDC-9 Comment Normal . [facility] Comment on above: Order Comment: Speci men Comment: [id number] Specimen Comment: Source.............Cervix Specimen Comment: No. of containers..01 ThinPrep Vial Result Comment: R87. 610 Performed By: #### L 7400.0280 #### [facility] [address] [place], [place], [id number] PERFORM Comment Normal . [facility] Comment on above: Order Comment: Speci men Comment: [id number] Specimen Comment: Source.............Cervix Specimen Comment: No. of containers..01 ThinPrep Vial Result Comment: Kenyon Moura [employer] Ii Assembler (ASCP) Performed By: #### L 7400.0280 #### [facility] [address] [place], [place], [id number] RECOMM Comment Abnormal . [facility] Comment on above: Order Comment: Speci men Comment: [id number] Specimen Comment: Source.............Cervix Specimen Comment: No. of containers..01 ThinPrep Vial Result Comment: Sugg est follow up as clinically appropriate. Performed By: #### L 7400.0280 #### [facility] [address] [place], [place], [id number] SIGN Comment Normal . [facility] Comment on above: Order Comment: Speci men Comment: [id number] Specimen Comment: Source.............Cervix Specimen Comment: No. of containers..01 ThinPrep Vial Result Comment: Allyson Johnson MD, Pathologist Performed By: #### L 7400.0280 #### [facility] [address] [place], [address] Cervical or vaginal specimen microscopic examination by liquid based cytology (reportOrdered By: Harriett Acevedo on 07-21-2024 Cytology report Cyto stain.thin prep Doc (Cvx/Vag) Comment . [facility] Comment on above: Criteria not met, HP V Genotype not performed.Performed at: [facility] [id number] Director: Mariaelena Swenson MD, Phone: [phone] at: =[facility] [id number] Director: Mariaelena Swenson MD, Phone: [phone] Cervical or vagninal specime n microscopic examination by cytology stain (reported asOrdered By: Harriett Acevedo on 07-21-2024 Cytology report Cyto stain Doc (Cvx/Vag) Comment . [facility] Comment on above: The Pap smear is a s creening test designed to aid in thedetection of premalignant and malignant conditions of theuterine cervix. It is not a diagnostic procedure andshould not be used as the sole means of detecting cervicalcancer. Both false-positive and false-negative reports dooccur. Lipcoat Sprayer Cyto stain Nom (C vx/Vag) [ID]Ordered By: Harriett Acevedo on 07-21-2024 Pap Smear Performed By Comment . [facility] Comment on above: Jed Moura Cytotec hnologist (ASCP) Cytology report Cyto stain D oc (Cvx/Vag)Ordered By: Harriett Acevedo on 07-21-2024 Thin Prep Pap Smear Comment . [facility] Comment on above: The Pap smear is a s creening test designed to aid in thedetection of premalignant and malignant conditions of theuterine cervix. It is not a diagnostic procedure andshould not be used as the sole means of detecting cervicalcancer. Both false-positive and false-negative reports dooccur. Cytology report Cyto stain.t hin prep Doc (Cvx/Vag)Ordered By: Harriett Acevedo on 07-21-2024 HPV Genotype Special Info Comment . [facility] Comment on above: Criteria not met, HP V Genotype not performed.Performed at: - [facility] [id number] Director: Mariaelena Swenson MD, Phone: [phone] at: =G - [facility] [address] [id number] Director: Mariaelena Swenson MD, Phone: [phone] Detection in cervical specim en of any of human papilloma virus (HPV) 16, 18, 31, 33,Ordered By: Harriett Acevedo on 07-21-2024 HPV 16+18+31+33+35+39+45+51+ 52+56+58+59+66+68 DNA Probe+sig amp Ql (Cvx) Negative Negative [facility] Comment on above: This nucleic acid am plification test detects fourteen high-risk HPV types (16,18,31,33,35,39,45,51,52,56,58,59,66,68)without differentiation. HPV 16+18+31+33+35+39+45+51+ 52+56+58+59+66+68 DNA Probe+sig amp Ql (Cvx)Ordered By: Harriett Acevedo on 07-21-2024 Human Papillomavirus High Risk Negative Negative [facility] Comment on above: This nucleic acid am plification test detects fourteen high-risk HPV types (16,18,31,33,35,39,45,51,52,56,58,59,66,68)without differentiation. Image-guided ThinPrep PapOrd ered By: Harriett Acevedo on 07-21-2024 Pap Smear Note Comment . [facility] Comment on above: This liquid based Th inPrep(R) pap test was screened withthe use of an image guided system. Image-guided liquid-based Pa pOrdered By: Harriett Acevedo on 07-21-2024 Pap Smear Diagnosis Comment High . [facility] Comment on above: EPITHELIAL CELL ABNO RMALITY.ATYPICAL SQUAMOUS CELLS OF UNDETERMINED SIGNIFICANCE (ASC-US). Laboratory - CytologyOrdered By: Harriett Acevedo on 07-21-2024 Lipcoat Sprayer Cyto stain Nom (Cvx/Vag) [ID] Comment . [facility] Comment on above: Jed Moura, Cytotec hnologist (ASCP) Pathologist Cyto stain Nom (Cvx/Vag) [ID] Comment . [facility] Comment on above: Beth Johnson MD, Pa thologist Recommended follow-up Cyto stain Nom (Cvx/Vag) Comment High . [facility] Comment on above: Suggest follow up as clinically appropriate. Laboratory - Miscellaneous t estsOrdered By: Harriett Acevedo on 07-21-2024 Service comment (Unsp spec) [Interp] . . [facility] No Panel InformationOrdered By: Harriett Acevedo on 07-21-2024 Pap Smear Specimen Adequacy Comment . [facility] Comment on above: Satisfactory for ariela luation. Endocervical and/or squamous metaplasticcells (endocervical component) are present. Pathology report final diagnosis Narrative Comment . [facility] Comment on above: R87.610 Costumer Assistant Office Visit Reporton 07-21-2024 Costumer Assistant Office Visit Report [facility] [address], [address] [place] [address] OFFICE VISIT Date of Service: 07/21/24 MR#: [id number] Acct: [id number] Name: SHARA MONTES Rep #: [id number] : 1990 Provider: Dr. 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 Is patient in pain?: No Feel stressed/tense/nervou s/anxious/difficulty sleeping: not at all Allergies No Known Allergies Allergy (Verified 07/21/24 11:18) Medications ???Medication ???Instructions ???Recorded ???Confirmed ???Type levonorgestrel 20.4 mcg/24 hr (up 1 device intrauterine ONCE 07/21/24 History to 8 yrs) 52 mg intrauterine device (Liletta) Is last menstrual period known: Yes Last Menstrual Period: 07/13/24 Post menopausal: No Patient : No : No PFSH Medical History Hives Seasonal allergies Family History Grandmother Colon cancer, Onset Age: 81 Hypertension Sister Hypertension, Onset Age: 40 Grandfather CVA (cerebral vascular accident), Onset Age: 75 Social History (Updated 07/21/24 @ 11:20 by Yadi Almeida) number of children: 5 current occupation: [employer] Smoking Status: Never smoker alcohol intake: never substance use type: does not use caffeine: Yes what type of physical activity do you participate in: other 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 Date Name GA/Weeks Outcome Route Bth Weight [facility] Unknown 03/20/2019 Fab live - full term Unknown 2010 Belia Unknown 2012 Kirk Unknown 2014 Sinan Unknown 2015 Pratima HPI Encounter for routine gynecological examination Details: SHARA MONTES is a 33 year old who presents for annual exam. Last PAP: 05/30/2019 - normal History of abnormal PAP: Last mammogram: not due History of abnormal mammogram: Colon cancer screening: not due Other preventative health care screenings: PCP [facility] - does not go routinely Female Reproductive History Last Menstrual Period: 07/13/24 Cycle Length: 21-35 Bleeding Duration: 5 Questions: metorrhagia: No, sexually active: Yes, dyspareunia: No and PCB: No Menopausal Symptoms: No hot flashes, No night sweats, No weight change, No mood changes, No difficulty concentrating, No sleep problems and No change in libido ROS Const Constitutional: Reports as per HPI; Denies fatigue, increased appetite, poor appetite, night sweats, weight gain or weight loss Cardio Card: Denies chest pain Resp Resp: Denies cough or dyspnea GI GI: Reports as per HPI; Denies abdominal pain, bloating, constipation, nausea or vomiting : Reports as per HPI and other; Denies difficulty voiding, dysuria, hematuria, hot flashes, nipple discharge, pelvic pain, prolapse symptoms, urinary frequency, urinary incontinence, urinary urgency, vaginal discharge, vaginal dryness, vaginal odor or vaginal pruritus Skin Skin/Breast: Denies changing lesions, breast mass, breast pain, breast skin changes or nipple discharge Psych Psych: Denies anxiety, change in libido, depression or difficulty concentrating Exam Const General: cooperative, healthy appearing, comfortable, no acute distress, well developed and well groomed HENMT Head: normal to inspection and normocephalic Ears: hearing grossly normal bilaterally and external ears normal Nose: external nose normal Face and sinus: normal facial exam Neck Neck: normal visual inspection, full ROM and no lymphadenopathy Thyroid: thyroid normal Chest Chest palpation inspection: normal inspection of the chest Breast inspection: normal inspection of the breasts and normal inspection of the axillae Breast palpation: normal palpation of the breasts, normal palpation of the axillae and no axillary lymphadenopathy Resp Effort Inspection: normal respiratory effort GI Inspection: normal to inspection and non-distended Palpation: soft, no hepatosplenomegaly and no guarding General: bladder normal to palpation External Female Exam: normal external appearance, normal appearance of the urethra and no lesions Urethra: normal appearanc (more content not included)... Normal [facility] Pathologist Cyto stain Nom ( Cvx/Vag) [ID]Ordered By: Harriett Acevedo on 07-21-2024 Pap Smear Signed Out By Comment . [facility] Comment on above: Beth Johnson MD, Pa thologist Pathology report final diagn osis NarrativeOrdered By: Harriett Acevedo on 07-21-2024 Pap Smear Comment (2) Comment . [facility] Comment on above: R87.610 Recommended follow-up Cyto s tain Nom (Cvx/Vag)Ordered By: Harriett Acevedo on 07-21-2024 Pap Smear Recommendation Comment High . [facility] Comment on above: Suggest follow up as clinically appropriate. Service comment (Unsp spec) [Interp]Ordered By: Harriett Acevedo on 07-21-2024 Pap Smear Comment (3) . . [facility] Auto Diffon 02-10-2019 Basophils (Bld) [#/Vol] 0.0 E3/mcL Normal 0.0-0.2 [facility] Comment on above: Order Comment: Order Added by Discern Expert. Performed By: #### 2 [id number] #### [facility] [address] [place] [address] Basophils/100 WBC (Bld) 0.6 % Normal 0.0-2.0 [facility] Comment on above: Order Comment: Order Added by Discern Expert. Performed By: #### 2 [id number] #### [facility] Rem[facility]emo [address] [place] [address] Eos Absolute 0.1 E3/mcL Normal 0.0-0.[address] [facility] Comment on above: Order Comment: Order Added by Discern Expert. Performed By: #### 2 [id number] #### [facility] Rem[facility]emo [address] [place] [address] Eosinophils/100 WBC (Bld) 1.1 % Normal 0.0-11.[address] [facility] Comment on above: Order Comment: Order Added by Discern Expert. Performed By: #### 2 [id number] #### [facility] Rem[facility] [address] [place] [address] Lymphocytes (Bld) [#/Vol] 1.3 E3/mcL Normal 1.2-3.[address] [facility] Comment on above: Order Comment: Order Added by Discern Expert. Performed By: #### 2 [id number] #### [facility] [address] [place] [address] Lymphocytes/100 WBC (Bld) 17.2 % Low 20.0-55.[address] [facility] Comment on above: Order Comment: Order Added by Discern Expert. Performed By: #### 2 [id number] #### [facility] [address] [place] [address] [place] Absolute 0.5 E3/mcL Normal 0.0-0.[address] [facility] Comment on above: Order Comment: Order Added by Discern Expert. Performed By: #### 2 608645 #### [facility] HickmanHemo [address] [place] [address] Monocytes/100 WBC (Bld) 6.6 % Normal 0.0-10.0 [facility] Comment on above: Order Comment: Order Added by Discern Expert. Performed By: #### 2 [id number] #### [facility]ickman[facility]emo [address] [place] [address] Neutro Absolute 5.6 E3/mcL Normal 1.4-6.[address] [facility] Comment on above: Order Comment: Order Added by Discern Expert. Performed By: #### 2 [id number] #### [facility] Hickman[facility]emo [address] [place] [address] Neutro Auto 74.5 % Normal 37.0-75.[address] [facility] Comment on above: Order Comment: Order Added by Discern Expert. Performed By: #### 2 [id number] #### [facility]ickman[facility]emo [address] [place] [address] CBC w/ Auto Diffon 9 Erythrocyte distribution width (RBC) [Ratio] 13.5 % Normal 11.5-14.[address] [facility] Comment on above: Performed By: #### 2 [id number] #### [facility] Hickman[facility]emo [address] [place] [address] Hematocrit (Bld) [Volume fraction] 36.1 % Normal 36.0-48.[address] [facility] Comment on above: Performed By: #### 2 639695 #### [facility] HickmanHemo [address] [place] [address] Hemoglobin (Bld) [Mass/Vol] 12.6 g/dL Normal 12.0-16.[address] [facility] Comment on above: Performed By: #### 2 797589 #### [facility] HickmanHemo [address] [place] [address] MCH (RBC) [Entitic mass] 32.0 pg High 27.0-31.[address] [facility] Comment on above: Performed By: #### 2 230896 #### [facility] HickmanHemo [address] [place] [address] MCHC (RBC) [Mass/Vol] 35.0 g/dL Normal 33.0-37.0 [facility] Comment on above: Performed By: #### 2 [id number] #### [facility] Rem[facility]emo [address] [place] [address] MCV (RBC) [Entitic vol] 91.4 fL Normal 78.0-100.0 [facility] Comment on above: Performed By: #### 2 929448 #### [facility] [address] [place] [address] Platelet mean volume (Bld) [Entitic vol] 8.3 fL Normal 7.4-11.[address] [facility] Comment on above: Performed By: #### 2 647921 #### [facility] RemHemo [facility] [place] [address] Platelets (Bld) [#/Vol] 140 E3/mcL Normal 130-400 [facility] Comment on above: Performed By: #### 2 194521 #### [facility] RemHemo [facility] [place] [address] RBC (Bld) [#/Vol] 3.95 E6/mcL Normal 3.90-5.40 [facility] Comment on above: Performed By: #### 2 [id number] #### [facility] RemHemo [address] [place] [address] WBC (Bld) [#/Vol] 7.5 E3/mcL Normal 3.6-11.0 [facility] Comment on above: Performed By: #### 2 156671 #### [facility] RemHemo [address] [place] [address] CMPon 02-10-2019 Albumin [Mass/Vol] 3.3 g/dL Low 3.4-5.0 [facility] Comment on above: Performed By: #### 2 749766 #### [facility] D[employer]ink [address] [place] [address] Albumin/Globulin [Mass ratio] 1.2 {ratio} Normal 1.1-1.[address] [facility] Comment on above: Performed By: #### 2 266756 #### [facility] Datalink [facility] [place] [address] Alk Phos 120 Int._Unit/L High 33-[address] [facility] Comment on above: Performed By: #### 2 [id number] #### [facility] [employer]ink [address] [place] [address] ALT [Catalytic activity/Vol] 5 Int._Unit/L Low 7-[address] [facility] Comment on above: Performed By: #### 2 [id number] #### [facility] [employer] [address] [place] [address] Anion gap [Moles/Vol] 12 mmol/L Normal 10-20 [facility] Comment on above: Performed By: #### 2 [id number] #### [facility] [employer] [address] [place] [address] AST [Catalytic activity/Vol] 12 Int._Unit/L Normal 9-[address] [facility] Comment on above: Performed By: #### 2 [id number] #### [facility] [employer] [address] [place] [address] Bili Total 0.58 mg/dL Normal 0.00-1.[address] [facility] Comment on above: Performed By: #### 2 859816 #### [facility] [employer] [address] [place] [address] Calcium [Mass/Vol] 8.3 mg/dL Low 8.6-10.3 [facility] Comment on above: Performed By: #### 2 840021 #### [facility] [employer] [address] [place] [address] Chloride [Moles/Vol] 106 mmol/L Normal 98-107 [facility] Comment on above: Performed By: #### 2 156375 #### [facility] [employer] [address] [place] [address] CO2 [Moles/Vol] 22.0 mmol/L Normal 21.0-32.0 [facility] Comment on above: Performed By: #### 2 786251 #### [facility] [employer] [address] [place] [address] Creatinine [Mass/Vol] 0.5 mg/dL Normal 0.5-1.1 [facility] Comment on above: Performed By: #### 2 490562 #### [facility] [employer] [address] [place] [address] Globulin (S) [Mass/Vol] 3.0 g/dL Normal 2.0-4.0 [facility] Comment on above: Performed By: #### 2 881372 #### [facility] [employer] [address] [place] [address] Glucose [Mass/Vol] 86 mg/dL Normal 70-99 [facility] Comment on above: Performed By: #### 2 886572 #### [facility] [employer] [address] [place] [address] Potassium [Moles/Vol] 3.4 mmol/L Low 3.5-5.3 [facility] Comment on above: Performed By: #### 2 532925 #### [facility] [employer] [address] [place] [address] Protein [Mass/Vol] 6.1 g/dL Low 6.4-8.2 [facility] Comment on above: Performed By: #### 2 543843 #### [facility] [employer] [address] [place] [address] Sodium [Moles/Vol] 136 mmol/L Normal 136-145 [facility] Comment on above: Performed By: #### 2 848033 #### [facility] [employer] [address] [place] [address] Urea nitrogen [Mass/Vol] 5 mg/dL Low 6-[address] [facility] Comment on above: Performed By: #### 2 [id number] #### [facility] [employer] [address] [place] [address] Urea nitrogen/Creatinine [Mass ratio] 10.0 ratio Normal 5.4-30.[address] [facility] Comment on above: Performed By: #### 2 [id number] #### [facility] [employer] [address] [place] [address] UA Completeon 02-10-2019 Color (U) Yellow Normal Yellow [facility] Comment on above: Performed By: #### 8 [id number] #### [facility] Urinalysis Automated Subsection [address] [place] [address] Glucose (U) [Mass/Vol] Negative Normal Negative [facility] Comment on above: Performed By: #### 8 [id number] #### G[facility]RET Urinalysis Automated Subsection [address] [place] [address] Ketones Ql (U) Trace Normal [facility] Comment on above: Performed By: #### 8 [id number] #### G[facility]RET Urinalysis Automated Subsection [facility] [place] [address] RBC (U) [#/Vol] 0-3 Normal 0-[address] [facility] Comment on above: Performed By: #### 8 [id number] #### G[facility] Urinalysis Automated Subsection [facility] [place] [address] UA Blood Negative Normal Negative [facility] Comment on above: Performed By: #### 8 [id number] #### [facility] Urinalysis Automated Subsection [facility] [place] [address] UA Clarity SltCloudy Abnormal Clear [facility] Comment on above: Performed By: #### 8 [id number] #### [facility] Urinalysis Automated Subsection [facility] [place] [address] UA Leuk Est Negative Normal Negative [facility] Comment on above: Performed By: #### 8 [id number] #### [facility] Urinalysis Automated Subsection [facility] [place] [address] UA Nitrite Negative Normal Negative [facility] Comment on above: Performed By: #### 8 [id number] #### [facility] Urinalysis Automated Subsection [address] [place] [address] UA pH 7.0 Normal 4.6-8.[address] [facility] Comment on above: Performed By: #### 8 [id number] #### [facility] Urinalysis Automated Subsection [facility] [place] [address] UA Protein Negative Normal Negative [facility] Comment on above: Performed By: #### 8 [id number] #### [facility] Urinalysis Automated Subsection [facility] [place] [address] UA Spec Grav 1.010 Normal 1.003-1.[address] [facility] Comment on above: Performed By: #### 8 [id number] #### [facility] Urinalysis Automated Subsection [facility] [place] [address] UA Squam Epithelial 5-10 Abnormal 0-5 [facility] Comment on above: Performed By: #### 8 [id number] #### [facility] Urinalysis Automated Subsection [facility] [place] [id number] UA Urobilinogen 4.0 mg/dL Abnormal [facility] Comment on above: Result Comment: Due to a manufacturing issue, low positive urobilinogen results may be fasely positive. Correlate with urine bilirubin and additional clinical/laboratory findings to assess the risk of hemolytic anemia or liver disease. If clinically indicated, repeat testing with an alternate method is available by contacting the laboratory within 24 hours. Performed By: #### 8 [id number] #### [facility] Urinalysis Automated Subsection [facility] [place] [address] UA WBC 0-5 Normal 0-[address] [facility] Comment on above: Performed By: #### 8 [id number] #### [facility] Urinalysis Automated Subsection [address] [place] [address] Urobilinogen Qn (U) Negative Normal Negative [facility] Comment on above: Performed By: #### 8 [id number] #### [facility] Urinalysis Automated Subsection [address] [place], [place] [id number] eGFRon 02-10-2019 GFR/1.73 sq M predicted among non-blacks MDRD (S/P/Bld) [Vol rate/Area] mL/min/{1.73_m2} Normal [facility] Comment on above: Order Comment: Order added by Discern Expert. Performed By: #### 1 [id number] #### [facility] [employer] [address] [place], [place] [address] Vital Signs Date Time Vital Sign Value Performing Clinician Tam waller 12-30-2024 10: Body height 162.[address] Harriett Acevedo MD Work Phone: [facility] 12-30-2024 10: Body mass index (BMI) [Ratio] 31.4 kg/m2 Dr. Harriett Acevedo MD Work Phone: [facility] 12-30-2024 10: Body weight [address] Harriett Acevedo MD Work Phone: [facility] 12-30-2024 10:040 Diastolic blood pressure 66 mm[Hg] Dr. Harriett Acevedo MD Work Phone: [phone] [place] [address] 12-30-2024 10:13-0400 Systolic blood pressure 98 mm[Hg] Dr. Harriett Acevedo MD Work Phone: [facility] 12-03-2024 09:23-0400 Body height 162.[address] Harriett Acevedo MD Work Phone: [phone] [place] [address] 12-03-2024 09:21-0400 Body mass index (BMI) [Ratio] 30.2 kg/m2 Dr. Harriett Acevedo MD Work Phone: [phone] [place] [address] 12-03-2024 09:21-0400 Body weight 79.[address] Harriett Acevedo MD Work Phone: [phone] [place] [address] 12-03-2024 09:21-0400 Diastolic blood pressure 77 mm[Hg] Dr. Harriett Acevedo MD Work Phone: [phone] [place] [address] 12-03-2024 09:21-0400 Systolic blood pressure 116 mm[Hg] Dr. Harriett Acevedo MD Work Phone: [phone] [place] [address] 11-25-2024 13:01-0400 Body height 162.56 cm Clara Araiza RN [facility] 11-25-2024 13:01-0400 Body mass index (BMI) [Ratio] 30.5 kg/m2 Clara Araiza RN [facility] 11-25-2024 13:01-0400 Body weight 80.73 kg Clara Araiza RN [facility] 11-25-2024 13:01-0400 Diastolic blood pressure 69 mm[Hg] Clara Araiza RN [facility] 11-25-2024 13:01-0400 Systolic blood pressure 106 mm[Hg] Clara Araiza RN [facility] 11-12-2024 10:39-0400 Body height 162.[address] Harriett Acevedo MD Work Phone: [phone] [place] [address] 11-12-2024 10:39-0400 Body mass index (BMI) [Ratio] 30.2 kg/m2 Dr. Harriett Acevedo MD Work Phone: [facility] 11-12-2024 10:39-0400 Body weight 79.[address] Harriett Acevedo MD Work Phone: [facility] 11-12-2024 10:39-0400 Diastolic blood pressure 76 mm[Hg] Dr. Harriett Acevedo MD Work Phone: [facility] 11-12-2024 10:39-0400 Systolic blood pressure 115 mm[Hg] Dr. Harriett Acevedo MD Work Phone: [facility] 07-21-2024 11:02-0400 Body height 162.[address] Harriett Acevedo MD Work Phone: [facility] 07-21-2024 11:02-0400 Body mass index (BMI) [Ratio] 31.4 kg/m2 Dr. Harriett Acevedo MD Work Phone: [facility] 07-21-2024 11:02-0400 Body weight [address] Harriett Acevedo MD Work Phone: [facility] 07-21-2024 11:02-0400 Diastolic blood pressure 81 mm[Hg] Dr. Harriett Acevedo MD Work Phone: [facility] 07-21-2024 11:02-0400 Systolic blood pressure 120 mm[Hg] Dr. Harriett Acevedo MD Work Phone: [facility] Encounters Encounter Date Encounter Type Care Provider Facility Start: 12-30-2024 ambulatory Harriett Turcios lity:[facility] Start: 12-30-2024 End: 12-30-[address] Harriett Acevedo MD Work Phone: -[facility] Start: 12-30-2024 End: 12-30-[address] Toma Gautam DO -[facility] Work Phone: Start: 12-03-2024 End: 12-03-[address] Toma Gautam DO -[facility] Work Phone: Start: 12-03-2024 End: 12-03-[address] Harriett Acevedo MD Work Phone: -[facility] Start: 12-03-2024 End: 12-03-[address] Harriett Acevedo MD Work Phone: [facility] Start: 12-03-2024 End: 12-03-[address] Harriett Acevedo MD -[facility] Work Phone: Start: 12-03-2024 End: 12-03-2024 ambulatory Harriett Acevedo Facility:[facility] Start: 11-25-2024 End: 11-25-[address] Toma Gautam DO -[facility] Work Phone: Start: 11-25-2024 End: 11-25-2024 ambulatory Toma Gautam -[facility] Start: 11-12-2024 End: 11-12-[address] Harriett Acevedo MD -[facility] Work Phone: Start: 11-12-2024 End: 11-12-[address] Harriett Acevedo MD Work Phone: -[facility] Start: 11-11-2024 Non-patient / Non-visit Clara Araiza RN -[facility] Work Phone: Start: 11-11-2024 End: 11-12-2024 ambulatory Yadi Rojas NP Facility:[facility] Start: 07-21-2024 End: 07-21-[address] Harriett Acevedo MD Work Phone: [facility] Work Phone: Start: 07-21-2024 End: 07-21-[address] Harriett Acevedo MD -[facility] Work Phone: Start: 07-21-2024 End: 07-21-[address] Harriett Acevedo MD -[facility] Work Phone: Start: 07-21-2024 End: 07-21-[address] Harriett Acevedo MD [facility] Start: 07-21-2024 End: 07-21-2024 ambulatory Harriett Acevedo Facility:[facility] Start: 07-21-2024 End: 07-21-2024 ambulatory Harriett Acevedo Facility:[facility] Procedures Date Procedure Procedure Detail Performing Clinician Start: 12-03-2024 Transvaginal [address] ic ultrasonography Dr. Harriett Acevedo MD Work Phone: Start: 11-12-[address] Mayelin Acevedo MD Work Phone: Start: 11-12-2024 Hepatitis C antibody measurement Dr. Harriett Acevedo MD Work Phone: Comment on above: Reactive: Presumptiv e evidence of antibodies to HCV. Follow CDC recommendations for supplemental testing.Non-Reactive: Antibodies to HCV were not detected; does not exclude the possibility of exposure to HCVReactive Results are presumptive evidence of antibodies to HCV. Follow CDC recommendations for supplemental testing.Order confirmation testing: HCV Quant by PCR testing - HCVPCR #[id number] Non Reactive: < 0.8 Equivocal: >/= 0.8 to < 1.0 Reactive: >/= 1.0The CDC requires that a reactive/equivocal HCV antibody result be sent out for confirmation. HCV Quant by PCR testing. Start: 11-12-[address] Harriett Acevedo MD Work Phone: Comment on above: Antibody Result: Int erpretationNon-Reactive: Non- ImmuneReactive: ImmuneThe following results were obtained with the [employer] Rubella IgG assay. Results from assays of other manufacturers cannot be used interchangeably. Start: 11-12-2024 Serologic test for syphilis Dr. Harriett Acevedo MD Work Phone: Start: 07-21-2024 Liquid based cervica l cytology screening Dr. Harriett Acevedo MD Work Phone: Comment on above: EPITHELIAL CELL ABNO RMALITY.ATYPICAL SQUAMOUS CELLS OF UNDETERMINED SIGNIFICANCE (ASC-US). This liquid based Th inPrep(R) pap test was screened withthe use of an image guided system. Plan of Treatment Date Care Activity Detail Author Start: 12-03-2024 [facility] Start: 12-03-2024 Transvaginal obstetric ultrasonography Transvaginal w/Preg US [facility] Start: 11-12-2024 CBC W Auto Differential panel - Blood [facility] Start: 11-12-2024 Hemoglobin A1c/Hemoglobin.total in Blood [facility] Start: 11-12-2024 Hepatitis C antibody measurement [facility] Start: 11-12-2024 Rubella IgG measurement [facility] Start: 11-12-2024 Serologic test for syphilis [facility] Start: 11-12-2024 [facility] Chlamydia deoxyribon ucleic acid detection [facility] Erythrocyte mean corpuscular volume determination [facility] Hematocrit [Volume Fraction] of Blood [facility] Hemoglobin [Mass/vol ume] in Blood [facility] Hepatitis B virus he rface Ag [Presence] in Serum [facility] Leukocytes [#/volume ] in Blood [facility] Mean corpuscular hem oglobin concentration determination [facility] Mean corpuscular hem oglobin determination [facility] Neutrophil count [facility] Neutrophil percent differential count [facility] Platelets [#/volume] in Blood [facility] Red blood cell count [facility] Red cell distributio n width determination [facility] Ultrasonography in f irst trimester [facility] Payers Date Payer Category Payer Self-pay 0 2024 Unknown 2024 Self-pay * 2024 Self-pay Unknown [employer] . [id number] Unknown 11 Unknown [id number] 2.16.8 [id number] Unknown [id number] 2.16.8 [id number] Unknown [id number] 2.16.8 [id number] Unknown [id number] 2.16.8 [id number] Unknown [id number] 2.16.8 [id number] Unknown [id number] 2.16.8 [id number] Unknown [id number] 2.16.8 [id number] Unknown [id number] 2.16.8 [id number] Unknown [id number] 2.16.8 [id number] Unknown [id number] 2.16.8 [id number] Social History Date Type Detail Facility Start: 07-21-2024 End: 11-11-2024 Tobacco smoking status NHIS Never smoked tobacco (finding) [facility] Start: 07-31-2024 Sex Female (finding) [facility] Start: 1990 Sex Assigned At Female [facility] Clinical Notes 07-21-2024 to 12-30-2024 Note Date & Type Note Facility 12-30-2024 Progress note [facility] 12-03-2024 Radiology Diagnostic study note [facility] Imaging Services [address] [place] [address] Transvaginal w/Preg US MR#: [id number] Acct: [id number] Name: SHARA MONTES Rep #: [id number] : 1990 F 34 From: Davida Vasquez MD PCP: Care Physician,No Primary Status: REG CLI Study:Transvaginal w/Preg US Date of Exam: 12/03/24 Exam# [id number] Ordering Dr: Harriett Kenyon MD PROCEDURE: TRANSVAGINAL W/PREG US 12/03/2024 REASON FOR EXAM: CERVICAL LENGTH TECHNIQUE: TRANSVAGINAL W/PREG US COMPARISON: None FINDINGS There is a live intrauterine . Position is cephalic. heart motion = 152 beats per minute. Cervix length = 4.0 cm and is closed. The cervical os is 1.5 cm from the marginof the placenta. The placenta is posterior, low lying, grade 1. An anechoic areas seen in the mid placenta with the appearance of the placenta Nieves. There is no visible abruption. Maximum vertical pocket of amniotic fluid = 4.2 cm Feel age equals 16 weeks 4 days Estimated due date May 16, 2025 US/Transvaginal w/Preg US IMPRESSION: The placenta is posterior, low lying, grade 1. An anechoic areas seen in the midplacenta with the appearance of the placenta Nieves. There is no visible abruption. Reading Location: [facility] CC: Dr. Harriett Acevedo MD; No Primary Care Physician ~ Nuclear Chemistry Technician: Signed [facility] 11-25-2024 Progress note [facility] 11-12-2024 Evaluation note Diagnosis Onset Date Resolution AMA (advanced maternal age) multigravida 35+ acute November 12, 2024 10:36am ASCUS of cervix with negative high risk HPV acute November 12, 2024 10:36am Family history of genetic disease carrier acute November 10:36am History of miscarriage, currently acute November 12 10:36am Obesity affecting acute November 12, 2024 10:36am acute November 12, 2024 10:36am Rh negative status during acute November 12, 2024 10:36am Supervision of high-risk acute November 12 10:36am AMA (advanced maternal age) multigravida 35+ acute November 25, 2024 12:52pm ASCUS of cervix with negative high risk HPV acute November 12:52pm Family history of genetic disease carrier acute November 12:52pm History of miscarriage, currently acute November 25 12:52pm Obesity affecting acute November 25, 2024 12:52pm acute November 25 12:52pm Rh negative status during acute November 25, 2024 12:52pm Supervision of high-risk acute November 25, 2 025 12:52pm [facility] Work Phone: 1(179) 520-992407-02-2025 Evaluation note* Diagnosis Onset Date Resolution Status Admit Date AMA (advanced maternal age) multigravida 35+ acute November 12, 2024 10:36am ASCUS of cervix with negativ e high risk HPV acute November 12, 2024 1 0:36am Family history of genetic disease carrier acute November 12, 2024 1 0:36am History of miscarriage, currently acute November 12 10:36am Obesity affecting acute November 12, 2024 10:36am acute November 12, 2024 10:36am Rh negative status during acute November 12, 2024 1 0:36am Supervision of high-risk acute November 12, 2024 1 0:36am AMA (advanced maternal age) multigravida 35+ acute November 25, 2024 12:52pm ASCUS of cervix with negativ e high risk HPV acute November 25, 2024 12:52pm Family history of genetic disease carrier acute November 25, 2024 12:52pm History of miscarriage, currently acute November 25 12:52pm Obesity affecting acute November 25, 2024 12:52pm acute November 25 12:52pm Rh negative status during acute November 25, 2024 12:52pm Supervision of high-risk acute November 25, 2024 12:52pm AMA (advanced maternal age) multigravida 35+ acute December 03, 2024 9:07am ASCUS of cervix with negativ e high risk HPV acute December 03, 2024 9:07am Bleeding in early acute December 03, 2024 9:07am Family history of genetic disease carrier acute December 03, 2024 9:07am History of miscarriage, currently acute December 03 9:07am Low lying placenta with hemorrhage, second trimester acute Nov 9:07am Obesity affecting acute December 03, 2024 9:07am acute December 03 9:07am Rh negative status during acute December 03, 2024 9:07am Supervision of high-risk acute December 03, 2024 9:07am [facility] Work Phone: 1(672) 694-407907-02-2025 Evaluation note* Diagnosis Onset Date Resolution Status Admit Date AMA (advanced maternal age) multigravida 35+ acute November 12, 2024 10:36am ASCUS of cervix with negativ e high risk HPV acute November 12, 2024 1 0:36am Family history of genetic disease carrier acute November 12, 2024 1 0:36am History of miscarriage, currently acute November 12 10:36am Obesity affecting acute November 12, 2024 10:36am acute November 12, 2024 10:36am Rh negative status during acute November 12, 2024 1 0:36am Supervision of high-risk acute November 12, 2024 1 0:36am AMA (advanced maternal age) multigravida 35+ acute November 25, 2024 12:52pm ASCUS of cervix with negativ e high risk HPV acute November 25, 2024 12:52pm Family history of genetic disease carrier acute November 25, 2024 12:52pm History of miscarriage, currently acute November 25 12:52pm Obesity affecting acute November 25, 2024 12:52pm acute November 25 12:52pm Rh negative status during acute November 25, 2024 12:52pm Supervision of high-risk acute November 25, 2024 12:52pm AMA (advanced maternal age) multigravida 35+ acute December 03, 2024 9:07am ASCUS of cervix with negativ e high risk HPV acute December 03, 2024 9:07am Bleeding in early acute December 03, 2024 9:07am Family history of genetic disease carrier acute December 03, 2024 9:07am History of miscarriage, currently acute December 03 9:07am Low lying placenta with hemorrhage, second trimester acute Nov 9:07am Obesity affecting acute December 03, 2024 9:07am acute December 03 9:07am Rh negative status during acute December 03, 2024 9:07am Supervision of high-risk acute December 03, 2024 9:07am AMA (advanced maternal age) multigravida 35+ acute December 30 9:48am ASCUS of cervix with negativ e high risk HPV acute December 30 9:48am Bleeding in early acute December 30, 2024 9:48am Family history of genetic disease carrier acute December 30 9:48am History of miscarriage, currently acute December 30, 2024 9:48am Low lying placenta with hemorrhage, second trimester acute Dec ust 2024 9:48am Obesity affecting acute December 30, 2024 9:48am acute December 30, 2 025 9:48am Rh negative status during acute December 30 9:48am Supervision of high-risk acute December 30 9:48am [facility] Work Phone: 1(164) 107-124107-02-2025 Progress [facility] [address] [place] [address], [address] [place] [address] OFFICE VISIT Date of Service: 11/12/24 MR#: [id number] Acct: [id number] Name: SHARA MONTES Rep #: [id number] : 1990 Provider: Dr. Tan Acevedo MD Age/Sex: 34/F Location: [facility] Status: Signed Intake Vital Signs 07/21/24 11:02 11/12/24 10:39 Height 5 ft 4 in 5 ft 4 in Weight: 176 lb BMI 30.2 BP 115/76 Intake Visit Reasons: *EST* NOB LMP 08/09, HORTENCIA 05/16 Landmen Required: No Is patient in pain?: No Feel stressed/tense/nervous/anxious/difficulty sleeping: not at all Allergies No Known Allergies Allergy (Verified 11/12/24 10:41) Medications ?Medication ?Instructions ?Recorded ?Confirmed ?Type docosahexaenoic acid 200 mg mg PO 11/11/24 11/12/24 Hi story capsule ( DHA) Last Menstrual Period: 08/09/24 Zika: Zika virus screening: Negative PFSH PFSH Medical History Seasonal allergies Family History Grandmother Colon cancer, Onset Age: 81 Hypertension Sister Hypertension, Onset Age: 40 Grandfather CVA (cerebral vascular accident), Onset Age: 75 Social History adopted: No household members: spouse and children number of children: 5 current occupation: [employer] current occupational exposures/hazards: No pets and animals: Yes pets and animals: farm animals history of recent travel: Yes (September 2024 - ) out of state: Yes out of country: No sexually active: Yes Smoking Status: Never smoker second hand exposure: No alcohol intake: never substance use type: does not use well-balanced diet: daily or most days caffeine: Yes Type: coffee Number of servings: 1 eating out: rarely or never during the past year weight has: remained stable what type of physical activity do you participate in: none kiana/sabianism: Spiritism seatbelt use: always do you feel safe at home: Yes additional social history: : Liliane Pritchard History 8 Elective abortions Hx Para 5 Spontaneous abortions 2 Hx # Term Pregnancies 5 Ectopic pregnancies Hx # Pregnancies Multiple births # of living children 5 Past Pregnancies Del. Date Name GA/Weeks Outcome Route Bth Weight Gen Labor Lgth Anesthesia Del Locatn Provider FOB 12/26/10 Belia 41 live - full term 7lbs 5oz Female none [facility] 07/15/12 Everly 40 live - full term 7lbs 12oz Male no ne Home [facility] 05/31/14 Sinan 40 live - full term 7lbs 8oz Male no ne Home [facility] 05/05/16 Rincon 40 live - full term 7lbs 2oz Male no ne Home [facility] 06/14/17 7 spontaneous 04/13/18 10 spontaneous 03/20/19 Fab 40 live - full term 7lbs 13oz Male none [facility] Delivery Date: 03/20/19 Last Updated by: Clara Araiza, RN Vein problems, Consultant Rn KRYSTYNA for delivery HPI *EST* NOB LMP 08/09, HORTENCIA 05/16 Details: SHARA MONTES is a 34 year old who presents for New OB visit. OB Visit HORTENCIA Calculator Estimated Delivery Date Method Current WG Current Estimate 05/16/25 LMP (Certain) 13w 4d Estimated Due Date: 05/16/25 Initial Weight: Not Recorded Date -?-?-?-?-?-?-?-?-?-?-?-?- EGA Weight BP Urine Prot -?-?-?-?-?-?-?-?-?-?-?-?- Glucose FHR FuHt Pres Dilation -?-?-?-?-?-?-?-?-?-?-?-?- Effaced St Visit Note 11/12/24 -?-?-?-?-?-?-?-?-?-?-?-?- 13w 4d 176 lb 115/76 -?-?-?-?-?-?-?-?-?-?-?-?- 154 -?-?-?-?-?-?-?-?-?-?-?-?- SM- CRL 6.8cm co ns with LMP Menstrual History Last Menstrual Period: 08/09/24 Reported LMP: definite Normal amount/duration: Yes Frequency in days: 28 On hormonal BC at conception: No hCG+: 09/11/24 Antepartum Record Genetic Screening: Congenital Heart Defect: Other, Neural Tube Defect: Other, Hemoglobinopathy Or Carrier: Other, Cystic Fibrosis: Other, Chromosome Abnormality: Partner (Niece with down syndrome), Justus-Sachs: Other, Hemophilia: Other, Intellectual Disability/Autism: Other, Recurrent Loss/S tillbirth: Patient (Miscarriage x2, Mat mom & sister with stillbirth), Other Structural Defect: Other, Other Genetic Disease: Patient (Sister with children with cockayne syndrome) and Maternal Metabolic Disorder: Other Infection History: Live with someone with TB or Exposed to TB: No, Patient or Partner has history of Genital Herpes: No, Rash or Viral illness since last mentrual period: No, Prior GBS-Infected child: No, History of STD: No, HIV Infection: No, History of Hepatitis: No, Recent travel outside of [place]: No, Concern for hepatitis exposure: No, Varicella immune: Yes (Had chicken pox) and Covid Vaccinated: No Medical History Medical History: Positive: Varicosities/phlebitis (Had a uterine vein issue lastpregnancy), D (Rh) Sensitized (A-, is + blood type), Seasonal allergies and History of abnormal pap (see problem list) and Negative: Diabetes, Hypertension, Heart disease, Auto-immune disorder, Kidney disease/UTI, Neurologic/epilepsy, Psychiatric, Depression/ depression, Hepatitis/liver disease, Thyroid dysfunction, Trauma/domestic violence, History of blood transfusions, Pulmonary (e.g.,TB,Asthma), Drug/latex allergies/reactions, Breast, Roof Plumber surgery, Operations/hospitalizations, Anesthetic complications, Uterine anomaly/franklin, Infertility, Anti-retroviral treatment, Relevant family history and Other ACOG First Trimester First Trimester: Desire for , Alcohol, Tobacco Cessation, Illicit/Recreational Drug/Substance Use, Intimate Partner Violence, Barriers to care, Unstable Housing, Communication Barriers, Environmental/Work Hazards, Anticipated Course of Care, Toxoplasmosis Precations, Use of Any med ications, Sexual activity, Exercise, Dental Care, Sauna/Hot tub use, Seat Belt use, Childbirth classes/Hospital facilities, Travel, Indications for Ultrasound and Screening for Aneuploidy ROS Const Reports system reviewed and no additional complaints, except as documented, Reports fatigue and Denies fever(s) Eyes Reports system reviewed and no additional complaints, except as documented ENT Reports system reviewed and no additional complaints, except as documented Card Denies chest pain and Denies dyspnea Resp Reports system reviewed and no additional complaints, except as documented, Denies cough and Deniesdyspnea GI Denies abdominal pain and Reports nausea Reports system reviewed and no additional complaints, except as documented Musc Reports system reviewed and no additional complaints, except as documented Skin/Breast Reports system reviewed and no additional complaints, except as documented Neuro Yes system reviewed and no additional complaints, except as documented Psych Reports system reviewed and no additional complaints, except as documented Endo Reports system reviewed and no additional complaints, except as documented and Reports fatigue Exam Const General: healthy appearing, comfortable and no acute distress Orientation: alert [facility] Head: normal to inspection, normocephalic and atraumatic Ears: hearing grossly normal bilaterally and external ears normal Nose: external nose normal and nares normal Mouth: oral mucosae normal Teeth and gingiva: dentition normal Eyes General: appearance normal, both eyes and all related structures Neck Neck: normal visual inspection, no lymphadenopathy and supple Thyroid: thyroid normal Chest Other: patient declined Resp Effort & Inspection: normal respiratory effort GI Inspection: normal to inspection Palpation: soft and no hepatosplenomegaly General: bladder normal to palpation External Female Exam: normal external appearance and normal appearance of the urethra Urethra: normal appearance of the urethra Speculum Exam - Vagina: normal appearance of the vagina and normal vaginal discharge Speculum Exam - Cervix: normal appearance of the cervix Bimanual Exam- Vagina & Uterus: normal bimanual exam, bladder normal to palpation, non-tender and other Bimanual Exam- Adnexa, other: non-tender Skin General: no rashes or lesions noted Neuro Motor: muscle tone normal throughout and no movement abnormalities noted Extrem General: normal to inspection and full ROM Supplemental Info ACOG book given and patient encouraged to read about nutrition, exercise, weight gain, and food avoidance in . Coding Level of Care Code OB Routine Diagnoses Family history of genetic disease carrier Z84.81 Rh negative status during O26.899; Z67.91 AMA (advanced maternal age) multigravida 35+ O09.529 History of miscarriage, currently O09.299 Obesity affecting O99.210 Supervision of high-risk O09.90 13 weeks gestation of Z3A.13 Weeks of gestation: 13 weeks ASCUS of cervix with negative high risk HPV R87.610 Assessment and Plan Assessment and Plan (1) Family history of genetic disease carrier: Status: Acute Comment: Sister & brother in law carriers for Cockayne Syndrome and have children dx withor passed from (2) Rh negative status during : Status: Acute Comment: A-, Rhogam as needed and PRN (3) AMA (advanced maternal age) multigravida 35+: Status: Acute (4) History of miscarriage, currently : Status: Acute Comment: x2; 2018 (5) Obesity affecting : Status: Acute Comment: BMI 30.9; HgBA1C ordered w/NOB (6) Supervision of high-risk : Status: Acute Comment: , HORTENCIA 05/16, PC: Kirk Celaya Steven, Marline & Fab, : Helio (7) : Status: Acute Qualifiers: Weeks of gestation: 13 weeks Qualified Code(s): Z3A.13 - 13 weeks gestation of Comment: Discussed genetic/carrier testing - undecided (8) ASCUS of cervix with negative high risk HPV: Status: Acute Comment: pap in 2019 negative. pap 2024 ascus w/neg hpv=repeat pap 2027 Orders: Orders OB Anatomy w/ Transvaginal 12/27/24 O09.90 - Supervision of high risk , unspecified, unspecified trimester Plan Patient oriented to practice and discussed care expectations and screenings. ACOG book offered to patient. Discussed routine and specially indicated labs if needed- patient consents to testing. See problem list details for plan information. Optional screening including maternal carrier screenings, neural tube defect screening, genetic screening options including quad screen, nuchal translucency, sequential screening, and NIPT screening offered to patient and patient chose: declined 11/12/24 1112 birgit HERNADEZ> Date _ Harriett Acevedo MD Cosigner Signature: Date (if applicable) CC: ~ [facility]03-10-2025 NotePap Smear Specimen AdequacyMar2024 5:14pmComment.Satisfactory for evaluation. Endocervical and/or squamous metaplasticcells (endocervical component)are present.[facility]ACED A#[id number] Health – The Jewish HospitalComment on above:Satisfactory for evaluation. Endocervical and/or squamous metaplasticcells (endocervical component)are present.07-21-2024 Evaluation note* Diagnosis Onset Date Resolution Status Admit Date Encounter for routine gynecological examination noneactive July 21, 2024 10:52am [facility] Work Phone: 1(982) 170-706003-10-2025 Evaluation note* Diagnosis Onset Date Resolution Status Admit Date Encounter for routine gynecological examination noneactive July 21, 2024 10:52am AMA (advanced maternal age) multigravida 35+ acute November 12, 2024 10:36am ASCUS of cervix with negativ e high risk HPV acute November 12, 2024 1 0:36am Family history of genetic disease carrier acute Tammy 2nd, 2025 1 0:36am History of miscarriage, currently acute November 12 10:36am Obesity affecting acute November 12, 2024 10:36am acute November 12, 2024 10:36am Rh negative status during acute November 12, 2024 1 0:36am Supervision of high-risk acute November 12, 2024 1 0:36am [facility] Work Phone: Progress note Author Harriett Acevedo [facility] Note Date/Time November 12, 2024 11:12 am [facility] [address], [address] [place] [address] OFFICE VISIT Date of Service: 11/12/24 MR#: [id number] Acct: [id number] Name: SHARA MONTES Rep #: [id number] : 1990 Provider: Dr. Tan Acevedo MD Age/Sex: 34/F Location: [facility] [facility] Status: Signed Intake Vital Signs 07/21/24 11:02 11/12/24 10:39 Height 5 ft 4 in 5 ft 4 in Weight: 176 lb BMI 30.2 BP 115/76 Intake Visit Reasons: *EST* NOB LMP 08/09, HORTENCIA 05/16 Landmen Required: No Is patient in pain?: No Feel stressed/tense/nervous/anxious/difficulty sleeping: not at all Allergies No Known Allergies Allergy (Verified 11/12/24 10:41) Medications ?Medication ?Instructions ?Recorded ?Confirmed ?Type docosahexaenoic acid 200 mg mg PO 11/11/24 11/12/24 Hi story capsule ( DHA) Last Menstrual Period: 08/09/24 Zika: Zika virus screening: Negative [facility] Medical History Seasonal allergies Family History Grandmother Colon cancer, Onset Age: 81 Hypertension Sister Hypertension, Onset Age: 40 Grandfather CVA (cerebral vascular accident), Onset Age: 75 Social History adopted: No household members: spouse and children number of children: 5 current occupation: [employer] current occupational exposures/hazards: No pets and animals: Yes pets and animals: farm animals history of recent travel: Yes (September 2024 - ) out of state: Yes out of country: No sexually active: Yes Smoking Status: Never smoker second hand exposure: No alcohol intake: never substance use type: does not use well-balanced diet: daily or most days caffeine: Yes Type: coffee Number of servings: 1 eating out: rarely or never during the past year weight has: remained stable what type of physical activity do you participate in: none kiana/sabianism: Spiritism seatbelt use: always do you feel safe at home: Yes additional social history: : Liliane Pritchard History 8 Elective abortions Hx Para 5 Spontaneous abortions 2 Hx # Term Pregnancies 5 Ectopic pregnancies Hx # Pregnancies Multiple births # of living children 5 Past Pregnancies Del. Date Name GA/Weeks Outcome Route Bth Weight Gen Labor Lgth Anesthesia Del Locatn Provider FOB 12/26/10 Belia 41 live - full term 7lbs 5oz Female none [facility] Helio 07/15/12 Everly 40 live - full term 7lbs 12oz Male no ne Home [place] 05/31/14 Sinan 40 live - full term 7lbs 8oz Male no ne Home [place] 05/05/16 Pratima 40 live - full term 7lbs 2oz Male no ne Home [place] 06/14/17 7 spontaneous 04/13/18 10 spontaneous 03/20/19 Fab 40 live - full term 7lbs 13oz Male none [facility] Delivery Date: 03/20/19 Last Updated by: Clara Araiza RN Vein problems, Consultant Rn KRYSTYNA for delivery HPI *EST* NOB LMP 08/09, HORTENCIA 05/16 Details: SHARA MONTES is a 34 year old who presents for New OB visit. OB Visit HORTENCIA Calculator Estimated Delivery Date Method Current WG Current Estimate 05/16/25 LMP (Certain) 13w 4d Estimated Due Date: 05/16/25 Initial Weight: Not Recorded Date -?-?-?-?-?-?-?-?-?-?-?-?- EGA Weight BP Urine Prot -?-?-?-?-?-?-?-?-?-?-?-?- Glucose FHR FuHt Pres Dilation -?-?-?-?-?-?-?-?-?-?-?-?- Effaced St Visit Note 11/12/24 -?-?-?-?-?-?-?-?-?-?-?-?- 13w 4d 176 lb 115/76 -?-?-?-?-?-?-?-?-?-?-?-?- 154 -?-?-?-?-?-?-?-?-?-?-?-?- SM- CRL 6.8cm co ns with LMP Menstrual History Last Menstrual Period: 08/09/24 Reported LMP: definite Normal amount/duration: Yes Frequency in days: 28 On hormonal BC at conception: No hCG+: 09/11/24 Antepartum Record Genetic Screening: Congenital Heart Defect: Other, Neural Tube Defect: Other, Hemoglobinopathy Or Carrier: Other, Cystic Fibrosis: Other, Chromosome Abnormality: Partner (Niece with down syndrome), Justus-Sachs: Other, Hemophilia: Other, Intellectual Disability/Autism: Other, Recurrent Loss/Stillbirth: Patient (Miscarriage x2, Mat mom & sister with stillbirth), Other Structural Defect: Other, Other Genetic Disease: Patient (Sister with children with cockayne syndrome) and Maternal Metabolic Disorder: Other Infection History: Live with someone with TB or Exposed to TB: No, Patient or Partner has history of Genital Herpes: No, Rash or Viral illness since last mentrual period: No, Prior GBS-Infected child: No, History of STD: No, HIV Infection: No, History of Hepatitis: No, Recent travel outside of [place]: No, Concern for hepatitis exposure: No, Varicella immune: Yes (Had chicken pox) and Covid Vaccinated: No Medical History Medical History: Positive: Varicosities/phlebitis (Had a uterine vein issue lastpregnancy), D (Rh) Sensitized (A-, is + blood type), Seasonal allergies and History of abnormal pap (see problem list) and Negative: Diabetes, Hypertension, Heart disease, Auto-immune disorder, Kidney disease/UTI, Neurologic/epilepsy, Psychiatric, Depression/ depression, Hepatitis/liver disease, Thyroid dysfunction, Trauma/domestic violence, History of blood transfusions, Pulmonary (e.g.,TB,Asthma), Drug/latex allergies/reactions, Breast, Roof Plumber surgery, Operations/hospitalizations, Anesthetic complications, Uterine anomaly/franklin, Infertility, Anti-retroviral treatment, Relevant family history and Other ACOG First Trimester First Trimester: Desire for , Alcohol, Tobacco Cessation, Illicit/Recreational Drug/Substance Use, Intimate Partner Violence, Barriers to care, Unstable Housing, Communication Barriers, Environmental/Work Hazards, Anticipated Course of Care, Toxoplasmosis Precations, Use of Any medications, Sexual activity, Exercise, Dental Care, Sauna/Hot tub use, Seat Belt use, Childbirth classes/Hospital facilities, Travel, Indications for Ultrasound and Screening for Aneuploidy ROS Const Reports system reviewed and no additional complaints, except as documented, Reports fatigue and Denies fever(s) Eyes Reports system reviewed and no additional complaints, except as documented ENT Reports system reviewed and no additional complaints, except as documented Card Denies chest pain and Denies dyspnea Resp Reports system reviewed and no additional complaints, except as documented, Denies cough and Denies dyspnea GI Denies abdominal pain and Reports nausea Reports system reviewed and no additional complaints, except as documented Musc Reports system reviewed and no additional complaints, except as documented Skin/Breast Reports system reviewed and no additional complaints, except as documented Neuro Yes system reviewed and no additional complaints, except as documented Psych Reports system reviewed and no additional complaints, except as documented Endo Reports system reviewed and no additional complaints, except as documented and Reports fatigue Exam Const General: healthy appearing, comfortable and no acute distress Orientation: alert [facility] Head: normal to inspection, normocephalic and atraumatic Ears: hearing grossly normal bilaterally and external ears normal Nose: external nose normal and nares normal Mouth: oral mucosae normal Teeth and gingiva: dentition normal Eyes General: appearance normal, both eyes and all related structures Neck Neck: normal visual inspection, no lymphadenopathy and supple Thyroid: thyroid normal Chest Other: patient declined Resp Effort & Inspection: normal respiratory effort GI Inspection: normal to inspection Palpation: soft and no hepatosplenomegaly General: bladder normal to palpation External Female Exam: normal external appearance and normal appearance of the urethra Urethra: normal appearance of the urethra Speculum Exam - Vagina: normal appearance of the vagina and normal vaginal discharge Speculum Exam - Cervix: normal appearance of the cervix Bimanual Exam- Vagina & Uterus: normal bimanual exam, bladder normal to palpation, non-tender and other Bimanual Exam- Adnexa, other: non-tender Skin General: no rashes or lesions noted Neuro Motor: muscle tone normal throughout and no movement abnormalities noted Extrem General: normal to inspection and full ROM Supplemental Info [facility] book given and patient encouraged to read about nutrition, exercise, weight gain, and food avoidance in . Coding Level of Care Code OB Routine Diagnoses Family history of genetic disease carrier Z84.81 Rh negative status during O26.899; Z67.91 AMA (advanced maternal age) multigravida 35+ O09.529 History of miscarriage, currently O09.299 Obesity affecting O99.210 Supervision of high-risk O09.90 13 weeks gestation of Z3A.13 Weeks of gestation: 13 weeks ASCUS of cervix with negative high risk HPV R87.610 Assessment and Plan Assessment and Plan (1) Family history of genetic disease carrier: Status: Acute Comment: Sister & brother in law carriers for Cockayne Syndrome and have children dx withor passed from (2) Rh negative status during : Status: Acute Comment: A-, Rhogam as needed and PRN (3) AMA (advanced maternal age) multigravida 35+: Status: Acute (4) History of miscarriage, currently : Status: Acute Comment: x2; 2018 (5) Obesity affecting : Status: Acute Comment: BMI 30.9; HgBA1C ordered w/NOB (6) Supervision of high-risk : Status: Acute Comment: , HORTENCIA 05/16, PC: Kirk Celaya Steven, Marline & Fab, : Helio (7) : Status: Acute Qualifiers: Weeks of gestation: 13 weeks Qualified Code(s): Z3A.13 - 13 weeks gestation of Comment: Discussed genetic/carrier testing - undecided (8) ASCUS of cervix with negative high risk HPV: Status: Acute Comment: pap in 2019 negative. pap 2024 ascus w/neg hpv=repeat pap 2027 Orders: Orders OB Anatomy w/ Transvaginal 12/27/24 O09.90 - Supervision of high risk , unspecified, unspecified trimester Plan Patient oriented to practice and discussed care expectations and screenings. [facility] book offered to patient. Discussed routine and specially indicated labs if needed- patient consents to testing. See problem list details for plan information. Optional screening including maternal carrier screenings, neural tube defect screening, genetic screening options including quad screen, nuchal translucency, sequential screening, and NIPT screening offered to patient and patient chose: declined 11/12/24 1112 <Electronically signed by Harriett genao MD> Date _ Harriett Acevedo MD Cosigner Signature: Date (if applicable) CC: ~ [facility] Work Phone: Progress note Author Toma Tay [facility] Note Date/Time November 25, 2024 1:[address] [facility] [address] [place] [address], [address] [place] [address] OFFICE VISIT Date of Service: 11/25/24 MR#: [id number] Acct: [id number] Name: SHARA MONTES Rep #: [id number] : 1990 Provider: Dr. Chiara Gautam DO Age/Sex: 34/F Location: [facility] [facility] Status: Signed Intake Vital Signs 11/12/24 10:39 11/25/24 13:01 Height 5 ft 4 in 5 ft 4 in Weight: 178 lb BMI 30.5 BP 106/69 Intake Visit Reasons: 15w3d, spotting since Sunday Chief Complaint: 15wk and spotting Landmen Required: No Is patient in pain?: No Allergies No Known Allergies Allergy (Verified 11/25/24 12:59) Medications ?Medication ?Instructions ?Recorded ?Confirmed ?Type docosahexaenoic acid 200 mg mg PO 11/11/24 11/25/24 Hi story capsule ( DHA) Last Menstrual Period: 08/09/24 : No PFSH PFSH Medical History Seasonal allergies Family History Grandmother Colon cancer, Onset Age: 81 Hypertension Sister Hypertension, Onset Age: 40 Grandfather CVA (cerebral vascular accident), Onset Age: 75 Social History adopted: No household members: spouse and children number of children: 5 current occupation: [employer] current occupational exposures/hazards: No pets and animals: Yes pets and animals: farm animals history of recent travel: Yes (September 2024 - ) out of state: Yes out of country: No sexually active: Yes Smoking Status: Never smoker second hand exposure: No alcohol intake: never substance use type: does not use well-balanced diet: daily or most days caffeine: Yes Type: coffee Number of servings: 1 eating out: rarely or never during the past year weight has: remained stable what type of physical activity do you participate in: none kiana/sabianism: Spiritism seatbelt use: always do you feel safe at home: Yes additional social history: : Liliane Pritchard History 8 Elective abortions Hx Para 5 Spontaneous abortions 2 Hx # Term Pregnancies 5 Ectopic pregnancies Hx # Pregnancies Multiple births # of living children 5 Past Pregnancies Del. Date Name GA/Weeks Outcome Route Bth Weight Infant [facility] 12/26/10 Belia 41 live - full term 7lbs 5oz Female none [facility] [place] 07/15/12 Kirk 40 live - full term 7lbs 12oz Male no ne Home [place] 05/31/14 Sinan 40 live - full term 7lbs 8oz Male no ne Home [place] 05/05/16 Pratima 40 live - full term 7lbs 2oz Male no ne Home [place] 06/14/17 7 spontaneous 04/13/18 10 spontaneous 03/20/19 Fab 40 live - full term 7lbs 13oz Male none [facility] [place] Delivery Date: 03/20/19 Last Updated by: Clara Araiza RN Vein problems, Consultant Rn KRYSTYNA for delivery HPI 15w3d, spotting since Sunday Details: SHARA MONTES is a 34 year old who presents for routine OB visit. OB Visit HORTENCIA Calculator Estimated Delivery Date Method Current WG Current Estimate 05/16/25 LMP (Certain) 15w 3d Initial Weight: Not Recorded Date -?-?-?-?-?-?-?-?-?-?-?-?- EGA Weight BP Urine Prot -?-?-?-?-?-?-?-?-?-?-?-?- Glucose FHR FuHt Pres Dilation -?-?-?-?-?-?-?-?-?-?-?-?- Effaced St Visit Note 11/12/24 -?-?-?-?-?-?-?-?-?-?-?-?- 13w 4d 176 lb 115/76 -?-?-?-?-?-?-?-?-?-?-?-?- 154 -?-?-?-?-?-?-?-?-?-?-?-?- SM- CRL 6.8cm co ns with LMP 11/25/24 -?-?-?-?-?-?-?-?-?-?-?-?- 15w 3d 178 lb 106/69 Negative -?-?-?-?-?-?-?-?-?-?-?-?- Negative 150 -?-?-?-?-?-?-?-?-?-?-?-?- JV- patient is mamta angelo seen urgently today for bleeding. She states it is mild and started sunday, went to brown sunday, red sunday, light pink yesterday, and nothing today. She denies recent intercourse or heavy lifting. ultrasound isreassuring and on exam there is a cervical ectropion. patient reassured. if bleeding starts again this week will order a cervical length ultrasound prior toher 20 week scan. ACOG First Trimester First Trimester: Desire for , Alcohol, Tobacco Cessation, Illicit/Recreational Drug/Substance Use, Intimate Partner Violence, Barriers to care, Unstable Housing, Communication Barriers, Environmental/Work Hazards, Anticipated Course of Care, Toxoplasmosis Precations, Use of Any medications, Sexual activity, Exercise, Dental Care, Sauna/Hot tub use, Seat Belt use, Childbirth classes/Hospital facilities, Travel, Indications for Ultrasound and Screening for Aneuploidy; Discussed Results POC Urinalysis 2 Dip (Clinic) Office Urine Glucose Negative Last Edit by Lily Curry on 11/25/24 13:09 Office Urine Protein Negative Last Edit by Lily Curry on 11/25/24 13:09 Coding Level of Care Code OB Routine Diagnoses Family history of genetic disease carrier Z84.81 Rh negative status during O26.899; Z67.91 History of miscarriage, currently O09.299 AMA (advanced maternal age) multigravida 35+ O09.529 Obesity affecting O99.210 Supervision of high-risk O09.90 15 weeks gestation of Z3A.15 Weeks of gestation: 15 weeks ASCUS of cervix with negative high risk HPV R87.610 Assessment and Plan Assessment and Plan (1) Family history of genetic disease carrier: Status: Acute Comment: Sister & brother in law carriers for Cockayne Syndrome and have children dx withor passed from (2) Rh negative status during : Status: Acute Comment: A-, Rhogam as needed and PRN (3) History of miscarriage, currently : Status: Acute Comment: x2; 2018 (4) AMA (advanced maternal age) multigravida 35+: Status: Acute Comment: genetic counseling- declined testing. (5) Obesity affecting : Status: Acute Comment: BMI 30.9; HgBA1C ordered w/NOB (6) Supervision of high-risk : Status: Acute Comment: , HORTENCIA 05/16, PC: Kirk Celaya Steven, Marline & Fab, : Helio (7) : Status: Acute Qualifiers: Weeks of gestation: 15 weeks Qualified Code(s): Z3A.15 - 15 weeks gestation of Comment: Discussed genetic/carrier testing - declined (8) ASCUS of cervix with negative high risk HPV: Status: Acute Comment: pap in 2019 negative. pap 2024 ascus w/neg hpv=repeat pap 2027 Orders: Orders POC Urinalysis 2 Dip (Clinic) Today 11/25/24 1328 <Electronically signed by Toma Lowe DO> Date _ Toma Vande Velde DO Cosigner Signature: Date (if applicable) CC: ~ [facility] Work Phone: Progress note Author Toma Tay [facility] Note Date/Time December 30, 2024 11 :02am [facility] [address] [place] [address], [address] [place] [address] OFFICE VISIT Date of Service: 12/30/24 MR#: [id number] Acct: [id number] Name: SHARA MONTES Rep #: [id number] : 1990 Provider: Dr. Chiara Gautam DO Age/Sex: 34/F Location: [facility] Status: Signed Intake Vital Signs 11/12/24 10:39 12/03/24 09:23 12/30/24 10:13 12/30/24 10:13 Height 5 ft 4 in 5 ft 4 in 5 ft 4 in 5 ft 4 in Weight: 183 lb BMI 31.4 BP 98/66 Intake Visit Reasons: 20wk ob *ok per Landmen Required: No Is patient in pain?: No Allergies No Known Allergies Allergy (Verified 12/30/24 10:12) Medications ?Medication ?Instructions ?Recorded ?Confirmed ?Type docosahexaenoic acid 200 mg mg PO 11/11/24 12/30/24 Hi story capsule ( DHA) Last Menstrual Period: 08/09/24 Zika: Zika virus screening: Negative : No PFSH PFSH Medical History Seasonal allergies Family History Grandmother Colon cancer, Onset Age: 81 Hypertension Sister Hypertension, Onset Age: 40 Grandfather CVA (cerebral vascular accident), Onset Age: 75 Social History adopted: No household members: spouse and children number of children: 5 current occupation: [employer] current occupational exposures/hazards: No pets and animals: Yes pets and animals: farm animals history of recent travel: Yes (September 2024 - ) out of state: Yes out of country: No sexually active: Yes Smoking Status: Never smoker second hand exposure: No alcohol intake: never substance use type: does not use well-balanced diet: daily or most days caffeine: Yes Type: coffee Number of servings: 1 eating out: rarely or never during the past year weight has: remained stable what type of physical activity do you participate in: none kiana/sabianism: Spiritism seatbelt use: always do you feel safe at home: Yes additional social history: : Liliane Pritchard History 8 Elective abortions Hx Para 5 Spontaneous abortions 2 Hx # Term Pregnancies 5 Ectopic pregnancies Hx # Pregnancies Multiple births # of living children 5 Past Pregnancies Del. Date Name GA/Weeks Outcome Route Bth Weight Infant Gen Labor Lgth Anesthesia Del Locatn Provider FOB 12/26/10 Belia 41 live - full term 7lbs 5oz Female none [facility] Hel[place] 07/15/12 Everly 40 live - full term 7lbs 12oz Male no ne Home [place] 05/31/14 Sinan 40 live - full term 7lbs 8oz Male no ne Home [place] 05/05/16 Pratima 40 live - full term 7lbs 2oz Male no ne Home [place] 06/14/17 7 spontaneous 04/13/18 10 spontaneous 03/20/19 Fab 40 live - full term 7lbs 13oz Male none [facility] Delivery Date: 03/20/19 Last Updated by: Clara Araiza RN Vein problems, Consultant Rn KRYSTYNA for delivery HPI 20wk ob *ok per Details: SHARA MONTES is a 34 year old who presents for routine OB visit. OB Visit HORTENCIA Calculator Estimated Delivery Date Method Current WG Current Estimate 05/16/25 LMP (Certain) 20w 3d Initial Weight: Not Recorded Date -?-?-?-?-?-?-?-?-?-?-?-?- EGA Weight BP Urine Prot -?-?-?-?-?-?-?-?-?-?-?-?- Glucose FHR FuHt Pres Dilation -?-?-?-?-?-?-?-?-?-?-?-?- Effaced St Visit Note 11/12/24 -?-?-?-?-?-?-?-?-?-?-?-?- 13w 4d 176 lb 115/76 -?-?-?-?-?-?-?-?-?-?-?-?- 154 -?-?-?-?-?-?-?-?-?-?-?-?- SM- CRL 6.8cm co ns with LMP 11/25/24 -?-?-?-?-?-?-?-?-?-?-?-?- 15w 3d 178 lb 106/69 Negative -?-?-?-?-?-?-?-?-?-?-?-?- Negative 150 -?-?-?-?-?-?-?-?-?-?-?-?- JV- patient is mamta paizkaden seen urgently today for bleeding. She states it is mild and started sunday, went to brown sunday, red sunday, light pink yesterday, and nothing today. She denies recent intercourse or heavy lifting. ultrasound isreassuring and on exam there is a cervical ectropion. patient reassured. if bleeding starts again this week will order a cervical length ultrasound prior to her 20 week scan. 12/30/24 -?-?-?-?-?-?-?-?-?-?-?-?- 20w 3d 183 lb 98/66 Negative -?-?-?-?-?-?-?-?-?-?-?-?- Negative 145 -?-?-?-?-?-?-?-?-?-?-?-?- JV- no further mamta alexis x 2 weeks now. has anatomy scan today at 12:30. has a lot of dilated varicosities and one that feels like a tiny clot at her nieto. If no problems on us today we will start baby asa. ACOG First Trimester First Trimester: Desire for , Alcohol, Tobacco Cessation, Illicit/Recreational Drug/Substance Use, Intimate Partner Violence, Barriers to care, Unstable Housing, Communication Barriers, Environmental/Work Hazards, Anticipated Course of Care, Toxoplasmosis Precations, Use of Any medications, Sexual activity, Exercise, Dental Care, Sauna/Hot tub use, Seat Belt use, Childbirth classes/Hospital facilities, Travel, Indications for Ultrasound and Screening for Aneuploidy; Discussed Results POC Urinalysis 2 Dip (Clinic) Office Urine Glucose Negative Last Edit by Yanna Dahl on 12/30/24 10: 13 Office Urine Protein Negative Last Edit by Yanna Dahl on 12/30/24 10: 13 Coding Level of Care Code OB Routine Diagnoses Low lying placenta with hemorrhage, second trimester O44.52 Bleeding in early O20.9 Family history of genetic disease carrier Z84.81 Rh negative status during O26.899; Z67.91 AMA (advanced maternal age) multigravida 35+ O09.529 History of miscarriage, currently O09.299 Obesity affecting O99.210 Supervision of high-risk O09.90 20 weeks gestation of Z3A.20 Weeks of gestation: 20 weeks ASCUS of cervix with negative high risk HPV R87.610 Assessment and Plan Assessment and Plan (1) Low lying placenta with hemorrhage, second trimester: Status: Acute Comment: pelvic rest + repeat scan at 28 weeks. rhogam 16 weeks. (2) Bleeding in early : Status: Acute (3) Family history of genetic disease carrier: Status: Acute Comment: Sister & brother in law carriers for Cockayne Syndrome and have children dx withor passed from (4) Rh negative status during : Status: Acute Comment: A-, Rhogam as needed and PRN (5) AMA (advanced maternal age) multigravida 35+: Status: Acute Comment: genetic counseling- declined testing. (6) History of miscarriage, currently : Status: Acute Comment: x2; 2018 (7) Obesity affecting : Status: Acute Comment: BMI 30.9; HgBA1C ordered w/NOB (8) Supervision of high-risk : Status: Acute Comment: , HORTENCIA 05/16, PC: Kirk Celaya Steven, Marline & Fab, : Helio (9) : Status: Acute Qualifiers: Weeks of gestation: 20 weeks Qualified Code(s): Z3A.20 - 20 weeks gestation of Comment: Discussed genetic/carrier testing - declined (10) ASCUS of cervix with negative high risk HPV: Status: Acute Comment: pap in 2019 negative. pap 2024 ascus w/neg hpv=repeat pap 2027 Orders: Orders POC Urinalysis 2 Dip (Clinic) Today 12/30/24 1102 <Electronically signed by Toma Lowe DO> Date _ Toma Gautam DO Cosigner Signature: Date (if applicable) CC: ~ [facility] Work Phone: Reason for referral (narrative)No reason for referral information [facility] Work Phone: Summary Purpose Family History No Family History Records Found Relationship Condition Age at Onset Recorded Date/T [place] grandmother Malignant neoplasm of colon 81 Hypertension Unknown sister Hypertension 40 grandfather Cerebrovascular accident (CVA) 75 Advance Directives No Advanced Directives Records FoundNo Advanced Directives Records Found Chief Complaint and Reason for Visit Chief Complaint Admit Date 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) July 21, 2024 10: 52am Reason for Visit Admit Date Encounter for routine gynecological exam ination July 21, 2024 10:52am Chief Complaint Admit Date 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) July 21, 2024 10: 52am Amb Documentation November 11, 2024 9:27a m *EST* NOB LMP 08/09, HORTENCIA 05/16November 12 10:36am Reason for Visit Admit Date Encounter for routine gynecological exam ination July 21, 2024 10:52am AMA (advanced maternal age) multigravida 35+ November 12, 2024 10:36am ASCUS of cervix with negative high risk HPV November 12, 2024 10:36am Family history of genetic disease sg r November 12, 2024 10:36am History of miscarriage, currently pregna nt November 12, 2024 10:36am Obesity affecting November 12 10:36am November 12, 2024 10:36 am Rh negative status during November 12, 2024 10:36am Supervision of high-risk November 12, 2024 10:36am Chief Complaint Admit Date Amb Documentation November 11, 2024 9:27a m *EST* NOB LMP 08/09, HORTENCIA 05/16November 12 10:36am 15w3d, spotting since Monday November 25, 2024 12:52pm Reason for Visit Admit Date AMA (advanced maternal age) multigravida 35+ November 12, 2024 10:36am ASCUS of cervix with negative high risk HPV November 12, 2024 10:36am Family history of genetic disease sg r November 12, 2024 10:36am History of miscarriage, currently pregna nt November 12, 2024 10:36am Obesity affecting November 12 10:36am November 12, 2024 10:36 am Rh negative status during November 12, 2024 10:36am Supervision of high-risk November 12, 2024 10:36am AMA (advanced maternal age) multigravida 35+ November 25, 2024 12:52pm ASCUS of cervix with negative high risk HPV November 25, 2024 12:52pm Family history of genetic disease sg r November 25, 2024 12:52pm History of miscarriage, currently pregna nt November 25, 2024 12:52pm Obesity affecting November 25, 2 025 12:52pm November 25, 2024 12:5 2pm Rh negative status during November 25, 2024 12:52pm Supervision of high-risk November 25, 2024 12:52pm Chief Complaint Admit Date Amb Documentation November 11, 2024 9:27a m *EST* NOB LMP 08/09, HORTENCIA 05/16November 12 10:36am 15w3d, spotting since Monday November 25, 2024 12:52pm Hemorrhage in early , unspecifi ed December 03, 2024 7:49am Rhogam December 03, 2024 9:07 am Reason for Visit Admit Date AMA (advanced maternal age) multigravida 35+ November 12, 2024 10:36am ASCUS of cervix with negative high risk HPV November 12, 2024 10:36am Family history of genetic disease sg r November 12, 2024 10:36am History of miscarriage, currently pregna nt November 12, 2024 10:36am Obesity affecting November 12 10:36am November 12, 2024 10:36 am Rh negative status during November 12, 2024 10:36am Supervision of high-risk November 12, 2024 10:36am AMA (advanced maternal age) multigravida 35+ November 25, 2024 12:52pm ASCUS of cervix with negative high risk HPV November 25, 2024 12:52pm Family history of genetic disease sg r November 25, 2024 12:52pm History of miscarriage, currently pregna nt November 25, 2024 12:52pm Obesity affecting November 25, 025 12:52pm November 25, 2024 12:5 2pm Rh negative status during November 25, 2024 12:52pm Supervision of high-risk November 25, 2024 12:52pm AMA (advanced maternal age) multigravida 35+ December 03, 2024 9:07am ASCUS of cervix with negative high risk HPV December 03, 2024 9:07am Bleeding in early December 03, 9:07am Family history of genetic disease sg r December 03, 2024 9:07am History of miscarriage, currently pregna nt December 03, 2024 9:07am Low lying placenta with hemorrhage, seco nd trimester December 03, 2024 9:07am Obesity affecting December 03, 025 9:07am December 03, 2024 9:07 am Rh negative status during December 03, 2024 9:07am Supervision of high-risk December 03, 2024 9:07am Chief Complaint Admit Date Amb Documentation November 11, 2024 9:27a m *EST* NOB LMP 08/09, HORTENCIA 05/16November 12 10:36am 15w3d, spotting since Monday November 25, 2024 12:52pm Hemorrhage in early , unspecifi ed December 03, 2024 7:49am Rhogam December 03, 2024 9:07 am 20wk ob *ok per SM December 30, 2024 9: 48am Reason for Visit Admit Date AMA (advanced maternal age) multigravida 35+ November 12, 2024 10:36am ASCUS of cervix with negative high risk HPV November 12, 2024 10:36am Family history of genetic disease sg r November 12, 2024 10:36am History of miscarriage, currently pregna nt November 12, 2024 10:36am Obesity affecting November 12 10:36am November 12, 2024 10:36 am Rh negative status during November 12, 2024 10:36am Supervision of high-risk November 12, 2024 10:36am AMA (advanced maternal age) multigravida 35+ November 25, 2024 12:52pm ASCUS of cervix with negative high risk HPV November 25, 2024 12:52pm Family history of genetic disease sg r November 25, 2024 12:52pm History of miscarriage, currently pregna nt November 25, 2024 12:52pm Obesity affecting November 25, 025 12:52pm November 25, 2024 12:5 2pm Rh negative status during November 25, 2024 12:52pm Supervision of high-risk November 25, 2024 12:52pm AMA (advanced maternal age) multigravida 35+ December 03, 2024 9:07am ASCUS of cervix with negative high risk HPV December 03, 2024 9:07am Bleeding in early December 03, 025 9:07am Family history of genetic disease sg r December 03, 2024 9:07am History of miscarriage, currently pregna nt December 03, 2024 9:07am Low lying placenta with hemorrhage, seco nd trimester December 03, 2024 9:07am Obesity affecting December 03, 2 025 9:07am December 03, 2024 9:07 am Rh negative status during December 03, 2024 9:07am Supervision of high-risk December 03, 2024 9:07am AMA (advanced maternal age) multigravida 35+ December 30, 2024 9:48am ASCUS of cervix with negative high risk HPV December 30, 2024 9:48am Bleeding in early December 30, 2024 9:48am Family history of genetic disease sg r December 30, 2024 9:48am History of miscarriage, currently pregna nt December 30, 2024 9:48am Low lying placenta with hemorrhage, seco nd trimester December 30, 2024 9:48am Obesity affecting December 30, 2024 9:48am December 30, 2024 9: 48am Rh negative status during Augu st 2024 9:48am Supervision of high-risk Augus t 2024 9:48am Additional Source Comments INFORMATION SOURCE (unrecogn ized section and content) DATE CREATED AUTHOR 02/13/2019 [facility] DATE CREATED AUTHOR AUTHOR'S CHERRIEIZ ATION 12/30/2024 [facility] Care Teams (unrecognized sec tion and content) Team Status: Active Member Role Status Dates No Primary Care Physician Family Provider Active Team Status: Inactive Member Role Status Dates Dr. Harriett Acevedo MD Attending Provider Active Start: July 21, 2024 End: July 21, 2024 Team Status: Inactive Member Role Status Dates Dr. Harriett Acevedo MD Attending Provider Active Start: July 21, 2024 End: July 21, 2024 Dr. Harriett Acevedo MD Referring Provider Active Start: July 21, 2024 End: July 21, 2024 Team Status: Active Member Role/Relationship Status Dates No Primary Care Physician Family Provider Active Team Status: Inactive Member Role/Relationship Status Dates Dr. Harriett Acevedo MD Attending Provider Active Start: July 21, 2024 End: July 21, 2024 Team Status: Inactive Member Role/Relationship Status Dates Dr. Harriett Acevedo MD Attending Provider Active Start: July 21, 2024 End: July 21, 2024 Dr. Harriett Acevedo MD Referring Provider Active Start: July 21, 2024 End: July 21, 2024 Team Status: Active Member Role/Relationship Status Dates Clara Araiza RN Attending Provider Active St art: November 11, 2024 Team Status: Inactive Member Role/Relationship Status Dates Dr. Harriett Acevedo MD Attending Provider Active Start: November 12, 2024 End: November 12, 2024 Team Status: Active Member Role/Relationship Status Dates Yadi Rojas NP, CERTIFIED PHYSICIAN'S ASSISTANT-C Attending Provider Active Start: November 12, 2024 Team Status: Inactive Member Role/Relationship Status Dates Dr. Harriett Acevedo MD Attending Provider Active Start: July 21, 2024 End: July 21, 2024 Team Status: Inactive Member Role/Relationship Status Dates Dr. Harriett Acevedo MD Attending Provider Active Start: July 21, 2024 End: July 21, 2024 Dr. Harriett Acevedo MD Referring Provider Active Start: July 21, 2024 End: July 21, 2024 Team Status: Active Member Role/Relationship Status Dates Clara Araiza RN Attending Provider Active St art: November 11, 2024 Team Status: Inactive Member Role/Relationship Status Dates Dr. Harriett Acevedo MD Attending Provider Active Start: November 12, 2024 End: November 12, 2024 Team Status: Inactive Member Role/Relationship Status Dates Yadi Rojas CERTIFIED PHYSICIAN'S ASSISTANT, CERTIFIED PHYSICIAN'S ASSISTANT-C Attending Provider Active Start: November 12, 2024 End: November 12, 2024 Team Status: Active Member Role/Relationship Status Dates Clara Araiza RN Attending Provider Active St art: November 11, 2024 Team Status: Inactive Member Role/Relationship Status Dates Dr. Harriett Acevedo MD Attending Provider Active Start: November 12, 2024 End: November 12, 2024 Team Status: Inactive Member Role/Relationship Status Dates Yadi Rojas CERTIFIED PHYSICIAN'S ASSISTANT, CERTIFIED PHYSICIAN'S ASSISTANT-C Attending Provider Active Start: November 12, 2024 End: November 12, 2024 Team Status: Inactive Member Role/Relationship Status Dates Dr. Toma Gautam DO Attending Provider Activ e Start: November 25, 2024 End: November 25, 2024 Team Status: Active Member Role/Relationship Status Dates No Primary Care Physician Primary Care Provider Active Team Status: Active Member Role/Relationship Status Dates Clara Araiza RN Attending Provider Active St art: November 11, 2024 Team Status: Inactive Member Role/Relationship Status Dates Dr. Harriett Acevedo MD Attending Provider Active Start: November 12, 2024 End: November 12, 2024 Team Status: Inactive Member Role/Relationship Status Dates Yadi Rojas NP, CERTIFIED PHYSICIAN'S ASSISTANT-C Attending Provider Active Start: November 12, 2024 End: November 12, 2024 Team Status: Inactive Member Role/Relationship Status Dates Dr. Toma Gautam DO Attending Provider Activ e Start: November 25, 2024 End: November 25, 2024 Team Status: Active Member Role/Relationship Status Dates Dr. Harriett Acevedo MD Attending Provider Active Start: December 03, 2024 Dr. Harriett Acevedo MD Referring Provider Active Start: December 03, 2024 No Primary Care Physician Primary Care Provider Active Start: December 03, 2024 Team Status: Inactive Member Role/Relationship Status Dates No Primary Care Physician Primary Care Provider Active Start: December 03, 2024 End: December 03, 2024 No Primary Care Physician Referring Provider Active Start: December 03, 2024 End: December 03, 2024 Dr. Toma Gautam DO Attending Provider Activ e Start: December 03, 2024 End: December 03, 2024 Team Status: Inactive Member Role/Relationship Status Dates Dr. Harriett Acevedo MD Attending Provider Active Start: December 03, 2024 End: December 03, 2024 Dr. Harriett Acevedo MD Referring Provider Active Start: December 03, 2024 End: December 03, 2024 No Primary Care Physician Primary Care Provider Active Start: December 03, 2024 End: December 03, 2024 Team Status: Inactive Member Role/Relationship Status Dates Dr. Toma Gautam DO Attending Provider Activ e Start: December 30, 2024 End: December 30, 2024 No Primary Care Physician Primary Care Provider Active Start: December 30, 2024 End: December 30, 2024 No Primary Care Physician Referring Provider Active Start: December 30, 2024 End: December 30, 2024 Goals (unrecognized section and content) Goals may be documented in a n alternate sectionGoals may be documented in an alternate sectionGoals may be documented in an alternate sectionGoals may be documented in an alternate sectionGoals may be documented in an alternate sectionGoals may be documented in an alternate sectionGoals may be documented in an alternate section FOR RECORDS PERTAINING TO PATIENTS WHO ARE OR HAVE BEEN ENROLLED IN A CHEMICAL DEPENDENCY/SUBSTANCEABUSE PROGRAM, SOME INFORMATION MAY BE OMITTED. This clinical summary was aggregated from multiple sources. Caution should be exercised in using it in the provision of clinical care. This summary normalizes information from multiple sources, and as a consequence, information in this document may materially change the coding, format and clinical context of patient data. In addition, data may be omitted in some cases. CLINICAL DECISIONS SHOULD BE BASED ON THE PRIMARY CLINICAL RECORDS. [facility] [employer] [facility]. provides no warranty or guarantee of the accuracy or completeness of information in this document.
== END | disposition home or self-care (01) ==
PROVIDERS: Referring Provider Obstetrics & Gynecology; Visit Provider Obstetrics & Gynecology
DX: O09.90 Supervision of high risk pregnancy, unspecified, unspecified trimester (principal); Z3A.00 Weeks of gestation of pregnancy not specified
CPT/HCPCS: 76805; 76817

== ENCOUNTER → 2025-02-25 | Outpatient (CLI) | payer SELFPAY ==
[2025-02-25 12:33] LABS: Hematocrit 35.2 % (37-47); Hemoglobin 12.1 g/dL (12.0-15.0); Immature Granulocytes Count 0.040 X10^3/uL (0.0-0.0); Mean Corp Hgb Conc 34.4 g/dL (32-36); Mean Corpuscular Volume 91.9 fL (81-99); Mean Platelet Vol. 10.0 fl (6.2-12.0); NRBC Flagged by Analyzer 0 % (0-5); Platelet Count 149 K/mm3 (150-450); RBC Distribution Width CV 13.3 % (11.6-14.6); RBC Distribution Width SD 43.6 fl (35.1-43.9); Red Blood Count 3.83 M/mm3 (4.2-5.4); White Blood Count 6.6 K/mm3 (4.4-11.0)
[2025-02-25 13:32] LABS: Glucose Challenge Gest 1H 50g 88 mg/dL (70-140); HIV Nonreactive (Nonreactive); Syphilis Antibodies Nonreactive (Nonreactive)
== END | disposition home or self-care (01) ==
PROVIDERS: Advanced Practice Midwife; Referring Provider Obstetrics & Gynecology; Visit Provider Obstetrics & Gynecology
DX: O09.90 Supervision of high risk pregnancy, unspecified, unspecified trimester (principal); O26.899 Other specified pregnancy related conditions, unspecified trimester; Z67.91 Unspecified blood type, Rh negative; Z13.1 Encounter for screening for diabetes mellitus; Z3A.00 Weeks of gestation of pregnancy not specified
CPT/HCPCS: 36415; 82950; 85025; 86703; 86780; 86850; 86900; 86901

== ENCOUNTER 2025-04-03 13:36 | Observation (INO) | payer MEDICAID, SELFPAY ==
[2025-04-03 13:37] VITALS: BP 114/74; PULSE 100; RESP 18; TEMP 35.8; O2SAT 100; BMI 33.3
--- NOTE | 2025-04-03 14:56 | VDLE_ITS ---
Reason For Study Reason For Study: Left leg pain Procedure LEFT This is a venous duplex using B-mode, color flow and GSV is normal. spectral Doppler. CFV is compressible, spontaneous, phasic, competent, Exam performed portable in ED. and demonstrates normal augmentation. A preliminary report was called and/or faxed to . FV is compressible, spontaneous, phasic, competent Jose and Lanre DYSON. and demonstrates normal augmentation. POP V is compressible, spontaneous, phasic, competent and demonstrates normal augmentation. T/P Trunk is compressible. PTV is compressible. LT PerV is compressible. Thrombus filled varicose veins noted at the knee-prox calf and prox- mid nieto. VL/Venous Duplex US, Unilateral Interpretation Summary Deep veins of the left lower extremity are patent and compressible segmentally. There is no evidence of left lower extremity deep vein thrombosis. Valvular competence appears intact within the p roximal deep venous system on the left . The left great saphenous vein appears patent and compressible segmentally. Acut e superficial thrombophlebitis is noted in varicosities about the left knee and proximal calf, as well as on the left p roximal and mid- pre-tibial surface. Ordering Physician: Bruce Garcia Performed By: Flaquita Gimenez RVT
--- NOTE | 2025-04-03 17:16 | EX.ED.DYSGE1 ---
HPI History of Present Illness Chief Complaint: Lower Extremity Injury Narrative Narrative: Patient is a 34-year-old female G6, P5 currently about 34 weeks who presented to the emergency department with concern for DVT in her left lower extremity. She states that she noted swelling and redness to her left leg around Sunday. She states that on Sunday she had moles removed on the back of her head on the left side behind her ear and on her upper chest she states that she has been on Keflex ever since then. She was sent by INTERNATIONAL PROJECT ENGINEER to have the ultrasound performed. [facility] Medical History Seasonal allergies Medical History unable to obtain Home Medications Medication Instructions Recorded Last Taken Type docosahexaenoic acid 200 mg mg PO 11/11/24 Unknown History capsule ( DHA) Allergy/AdvReac Type Severity Reaction Status Date / Time No Known Allergies Allergy Verified 04/03/25 13:37 Family History Grandmother Colon cancer, Onset Age: 81 Hypertension Sister Hypertension, Onset Age: 40 Grandfather CVA (cerebral vascular accident), Onset Age: 75 Family History no significant family his Surgical History unable to obtain Social History adopted: No household members: spouse and children number of children: 5 current occupation: [employer] current occupational exposures/hazards: No pets and animals: Yes pets and animals: farm animals history of recent travel: Yes (September 2024 - ) out of state: Yes out of country: No sexually active: Yes Smoking Status: Never smoker second hand exposure: No alcohol intake: never substance use type: does not use well-balanced diet: daily or most days caffeine: Yes Type: coffee Number of servings: 1 eating out: rarely or never during the past year weight has: remained stable what type of physical activity do you participate in: none kiana/sikhism: Umberto seatbelt use: always do you feel safe at home: Yes additional social history: : Liliane Pritchard ROS ROS ED ROS Narrative Constitutional: Denies any fevers, chills, headaches Cardiovascular: Denies chest pain Respiratory: Denies shortness of breath Neurological: Denies any numbness, weeks, tingling Musculoskeletal: Complains of left leg swelling as noted above denies any history of blood clots Skin: Complains of redness in the left leg as noted above EXAM Physical Exam Narrative Exam Narrative: General: Patient was lying in bed rest comfortably did not appear to be in acute distress Head: Atraumatic, normocephalic Eyes: PERRL bilaterally, EOMI bilaterally, no conjunctival injection noted Neck: Soft, supple, trachea midline Cardiovascular: Regular rate and rhythm Respiratory: Clear to auscultation bilaterally Abdomen: Gravid abdomen Musculoskeletal: Patient has evidence of varicose veins with redness in the left inner calf Extremities: Compartments are soft and compressible in the left lower extremity, left lower extremity is more swollen than the right Neurological: Patient follow commands knew that she was at [facility] years 2024 Skin: Patient has erythema and warmth with palpation in the left inner calf region Const Vital Signs: 04/03/25 13:37 Temperature 96.5 F L Temperature Source Temporal Pulse Rate 100 Respiratory Rate 18 Blood Pressure 114/74 Blood Pressure Mean 87 Pulse Ox 100 Oxygen Delivery Method Room Air MDM MDM MDM Narrative Medical decision making narrative: Patient is a 34-year-old female who presented to the emergency department with a concern for DVT of the left lower extremity. On the differential diagnose includes but not limited to superficial venous fibrosis, DVT, cellulitis. Once workup is obtained reviewed she will be reevaluated. Patient's ultrasound did show evidence of superficial venous thrombosis. Given the patient has been on Keflex since Sunday and has quite significant erythema and warmth to the left calf region will discuss with INTERNATIONAL PROJECT ENGINEER. Discussed case with on-call INTERNATIONAL PROJECT ENGINEER Dr. Mcclendon and we do believe she will warrant firm IV antibiotics for concern for cellulitis of her left calf region as it has spread up her left inner thigh region. No petechia no purpura no sloughing the skin noted. After discussion she will be given cefazolin blood work was added on as well. I discussed this with the patient and at bedside they are agreeable with this plan all question concerns answered. Discharge Plan Dx/Rx/DC Orders Clinical Impression: Cellulitis of left leg, Superficial vein thrombosis, Currently Disposition Disposition: Acute Care [facility]
[2025-04-03] MEDS: Cefazolin 2 GM in 0.9% Normal Saline (100mL Bag) 100 ML IV (17:31)
[2025-04-03 17:39] LABS: Hematocrit 31.2 % (37-47); Hemoglobin 10.9 g/dL (12.0-15.0); Immature Granulocytes Count 0.040 X10^3/uL (0.0-0.0); Mean Corp Hgb Conc 34.9 g/dL (32-36); Mean Corpuscular Volume 87.9 fL (81-99); Mean Platelet Vol. 9.8 fl (6.2-12.0); NRBC Flagged by Analyzer 0 % (0-5); Platelet Count 113 K/mm3 (150-450); RBC Distribution Width CV 12.9 % (11.6-14.6); RBC Distribution Width SD 40.5 fl (35.1-43.9); Red Blood Count 3.55 M/mm3 (4.2-5.4); White Blood Count 5.6 K/mm3 (4.4-11.0)
[2025-04-03 17:46] VITALS: BP 134/78; PULSE 64; RESP 18; TEMP 36.6; O2SAT 99
[2025-04-03 17:57] LABS: AST(SGOT) 15 U/L (<=31); Alanine Aminotransfer ALT/SGPT 6 U/L (<=34); Albumin, Serum 3.4 g/dL (3.5-5.0); Alkaline Phosphatase 87 U/L (35-104); Anion Gap 11 (5-15); BUN 8 mg/dL (4-19); BUN/Creat Ratio 20.6 RATIO (10-20); Calcium,Total 8.5 mg/dL (7.6-11.0); Carbon Dioxide 21.7 mmol/L (21.0-32.0); Chloride 105 mmol/L (98-108); Estimated Creatinine Clearance 205.59 ml/min (50-250); Globulin 2.7 g/dL (2.2-4.2); Glucose 95 mg/dL (70-99); Potassium 3.2 mmol/L (3.3-5.1)
[2025-04-03 18:00] LABS: Mucous, Urine 0 SEEN /hpf (<or=2+)
[2025-04-03 18:32] LABS: Color, Urine Yellow (Yellow); Glucose, Dipstick Normal (Normal); Ketone-Dipstick Negative (Negative); Leukocyte Esterase-Dipstick Negative /ul (Negative); Nitrite-Dipstick Negative (Negative); Occult Blood-Urine Negative /ul (Negative); Protein-Dipstick Negative (Negative); Specific Gravity, Urine 1.010 (1.002-1.030); Urine Bilirubin Dipstick Negative (Negative)
[2025-04-03 18:56] LABS: Red Blood Cells-Urine 0-5 SEEN /hpf (0-5); Squamous Epithelial Cells - UA 5-10 SEEN /hpf (5-10)
--- OUTSIDE RECORDS SUMMARY | 2025-04-03 19:00 | XMS RPT_ITS | CCD ---
Author Organization [facility] Care Team Providers Care Linux System Engineer Name Role Phone Dr. Harriett Acevedo MD Attending Provider [phone] Dr. Harriett Acevedo MD Referring Provider Clara Araiza RN Attending Provider Unavailedil Rojas NP-CYadi Attending Provider [phone] Dr. Harriett Acevedo MD Attending Provider [phone] Dr. Toma Gautam DO Attending Provider Dr. Harriett Acevedo MD Referring Provider Care Physician, No Primary Primary Care Provider Unavailable Care Physician, No Primary Referring Provider Un available Coby Wong CNM Attending Provider [phone] Clara Araiza RN Attending Physician Unavailab Dr. Harriett Saini MD Attending Physician Yadi Gr Attending Physician [phone] Dr. Toma Gautam DO Attending Physician Care Physician, No Primary Primary Care Physicia n Unavailable Coby Wong CNM Attending Physician [phone] Harriett Acevedo Attending Unavailable Harriett Acevedo Referring Unavailable Care Physician, No Primary Primary Care Unava ilable Yadi Rojas NP Attending Unavailable Harriett Acevedo Attending Unavailable Harriett Acevedo Referring Unavailable Care Physician, No Primary Primary Care Unava ilable Harriett Acevedo Attending Unavailable Harriett Acevedo Referring Unavailable Harriett Acevedo Attending Unavailable Harriett Acevedo Referring Unavailable Care Physician, No Primary Primary Care Unava ilable Toma Gautam Admitting Toma Slade Attending Unavailabl e Care Physician, No Primary Primary Care Unava ilable Toma Gautam Attending Unavailabl e Care Physician, No Primary Primary Care Unava ilable Care Physician, No Primary Referring Unava ilable Coby Wong Attending Unavailable Care Physician, No Primary Referring Unava ilable Care Physician, No Primary Primary Care Unava ilable Harriett Acevedo Attending Unavailable Care Physician, No Primary Referring Unava ilable Care Physician, No Primary Primary Care Unava ilable Harriett Acevedo Attending Unavailable Care Physician, No Primary Referring Unava ilable Care Physician, No Primary Primary Care Unava ilable Harriett Acevedo Attending Unavailable Toma Gautam Attending Unavailabl e Francoise Toma Tay Attending Unavailabl e Care Physician, No Primary Referring Unava ilable Care Physician, No Primary Primary Care Unava ilable Clara Araiza Attending Unavailable Harriett Acevedo Attending Unavailable Medications Current Medications Medication Drug Class(es) Dates Sig (Normalized) Sig (Original) docosahexaenoic acid 200 mg oral capsule (9 sources) Start: 11-11-2024 Completed/Discontinued Medications Medication Drug Class(es) Dates Sig (Normalized) Sig (Original) levonorgestrel 0.594194 mg/hr intrauterine system (10 sources) Progestin, Progestin-containi ng Intrauterine Device Start: 07-21-2024 End: 11-11-2024 Levonorgestrel (Liletta) 20.4 mcg/24 hr (8 yrs) 52 mg intrauterine device Discontinued 1 NMA INTRA-UTER ONCE July 21, 2024 12:00am November 11, 2024 9:28am as a single dose Problems Active Problems Problem Classification Problem Date Documented Da te Episodic/Chronic Cancer of cervix (20 sources) Atypical squamous cells of undetermined significance on cervical Papanicolaou smear; Translations: [Atypical squamous cells of undetermined significance on cytologic smear of cervix (ASC-US)] Onset: 02-25-2025 08-05-2024 Episodic Comment on above: pap in 2019 negative . pap 2024 ascus w/neg hpv=repeat pap 2027 Hemorrhage during ; abruptio placenta; placenta previa (20 sources) Antepartum hemorrhage; Translations: [Hemorrhage in early [...] Celaya Steven, Marline & Fab, : Helio PRR , HORTENCIA 05/16, PC: Kirk Celaya Steven, Marline & Fab, : Helio Other complications of (20 sources) RhD negative; Translations: [Other specified related conditions, unspecified trimester] 11-11-2024 Episodic Comment on above: A-, Rhogam as needed and PRN Other complications of (2 sources) Supervision of high risk , unspecified, unspecified trimester; Translations: [Supervision of high risk , unspecified, unspecified trimester] Onset: 11-12-2024 Episodic Other complications of (1 source) Other specified related conditions, unspecified trimester; Translations: [Other specified related conditions, unspecified trimester] Onset: 02-25-2025 Episodic Other complications of (1 source) Supervision of elderly multigravida, unspecified trimester; Translations: [Supervision of elderly multigravida, unspecified trimester] Onset: 02-25-2025 Episodic Other complications of (1 source) Supervision of with other poor reproductive or obstetric history, unspecified trimester; Translations: [Supervision of with other poor reproductive or obstetric history, unspecified trimester] Onset: 02-25-2025 Episodic Other and delivery including normal (20 sources) Normal labor; Translations: [] 03-20-2019 Episodic Comment on above: Discussed genetic/ca rrier testing - declined Discussed genetic/ca rrier testing - declined. DOC ONLY. Other upper respiratory disease (10 sources) Seasonal allergy; Translations: [Other seasonal allergic [...] Translations: [Unspecified blood type, Rh negative] Onset: 02-25-2025 Episodic Residual codes; unclassified (1 source) Family history of carrier of genetic disease; Translations: [Family history of carrier of genetic disease] Onset: 02-25-2025 Episodic Residual codes; unclassified (1 source) 24 weeks gestation of ; Translations: [24 weeks gestation of ] Onset: 02-25-2025 Episodic Residual codes; unclassified (1 source) 16 weeks gestation of ; Translations: [16 weeks gestation of ] Onset: 12-30-2024 Episodic Residual codes; unclassified (1 source) 15 weeks gestation of ; Translations: [15 weeks gestation of ] Onset: 12-17-2024 Episodic Past or Other Problems Problem Classification Problem Date Documented Da te Episodic/Chronic Other screening for suspected conditions (not mental disorders or infectious disease) (1 source) Encounter for screening for malignant neoplasm of cervix; Translations: [Encounter for screening for malignant neoplasm of cervix] Onset: 11-21-2024 Episodic Residual codes; unclassified (1 source) 13 weeks gestation of ; Translations: [13 weeks gestation of ] Onset: 12-08-2024 Episodic Results Test Name Value Interpretation Reference Range Facility Supervisor Shop Office Visit Reporton 03-16-2025 Supervisor Shop Office Visit Report [facility] [address], [address] [place] [address] OFFICE VISIT Date of Service: 03/16/25 MR#: [id number] Acct: [id number] Name: SHARA MONTES Rep #: [id number] : 1990 Provider: Dr. Harriett gardiner MD Age/Sex: 34/F [place] [facility] [place]: Signed Intake Vital Signs 02/25/25 09:49 03/16/25 08:31 Height 5 ft 4 in 5 ft 4 in Weight: 189 lb 5 oz 191 lb 8 oz BMI 32.5 32.8 BP 118/75 117/65 Intake Visit Reasons: 31w 2d ob *doc only Inspector Set Up And Lay Out Required: No Is patient in pain?: No Allergies No Known Allergies Allergy (Verified 03/16/25 08:31) Medications ???Medication ???Instructions ???Recorded ???Confirmed ???Type docosahexaenoic acid 200 mg mg PO 11/11/24 03/16/25 History capsule ( DHA) Last Menstrual Period: 08/09/24 Zika: Zika virus screening: Negative : No PFSH PFSH Medical History Seasonal allergies Family History Grandmother Colon cancer, Onset Age: 81 Hypertension Sister Hypertension, Onset Age: 40 Grandfather CVA (cerebral vascular accident), Onset Age: 75 Social History adopted: No household members: spouse and children number of children: 5 current occupation: [employer] current occupational exposures/hazards: No pets and animals: [...] physical activity do you participate in: none kiana/quaker: Druze seatbelt use: always do you feel safe [...] - full term 7lbs 5oz Female none [facility] Helio 07/15/12 Percival 40 live - full term 7lbs 12oz Male none Home Helio 05/31/14 Sinan 40 live - full term 7lbs 8oz Male none Home Helio 05/05/16 [place] 40 live - full term 7lbs 2oz Male none Home Helio 06/14/17 7 spontaneous 04/13/18 10 spontaneous 03/20/19 Fab 40 live - full term 7lbs 13oz Male none [facility] Helio Delivery Date: 03/20/19 Last Updated by: Clara Araiza RN "Vein problems", World History Teacher KRYSTYNA for delivery HPI 31w 2d ob *doc only Details: SHARA MONTES is a 34 year old who presents for routine OB visit. OB Visit HORTENCIA Calculator Estimated Delivery Date Method Current WG Current Estimate 05/16/25 LMP (Certain) 31w 2d Expected Delivery Route/Plan Labor Preferences- CB/BF classes: [] labor support person: [] labor intervention preferences: [] pain management options preferred: [] cut cord/dad catch: [] : [] PP control planned: [] discussed possible routes of delivery and associated risks: [] special requests: [] Specific Issue/Plans Covid status: [] Flu vaccine: declined Tdap vaccine: declined Rhogam: given 02/25 LARC form signed: declined movement and labor precautions reviewed. Problem list reviewed and updated with the most current plan of care details and appropriate orders placed. Relevant counseling for the gestational age provided. Continue routine care and follow up unless otherwise noted in visit notes/problem list details Initial Weight: Not Recorded Date -???-???-???-???-???- ???-???-???-???-???-? [...] -???-???-???-???-???- ???-???-???-???-???-? ??-???- JV- patient is being (more content not included)... Normal [facility] Absolute lymphocyte countOrd ered By: Coby Wong on 02-25-2025 Lymphocytes Auto (Unsp spec) [#/Vol] 0.99 10*3/uL 0.83-4.51 [facility] Absolute neutrophil countOrd ered By: Coby Wong on 02-25-2025 Neutrophils (Bld) [#/Vol] 5.1 10*3/uL 2.0-7.7 [facility] Automated lymphocyte count a s percentage of total leukocytesOrdered By: Coby Wong on 02-25-2025 Lymphocytes/100 WBC Auto (Unsp spec) 15.0 % Low 19-41 [facility] Basophil percentageOrdered B y: Coby Wong on 02-25-2025 Basophils/100 WBC (Bld) 0.8 % 0-1 [facility] CBC W/Diff, Automatedon 02-11 Absolute Lymph 0.99 X10 3/uL Normal 0.83-4.51 [facility] Comment on above: Performed By: #### B TS, L509.8002, L501.0250, L100.0100, L3890.6006 ####[facility] [address] [place], [address] Absolute Neut 5.1 X10 3/uL Normal 2.0-7.7 [facility] Comment on above: Performed By: #### B TS, L509.8002, L501.0250, L100.0100, L3890.6006 ####[facility] [address] [place], [address] Basophils/100 WBC (Bld) 0.8 % Normal 0-1 [facility] Comment on above: Performed By: #### B TS, L509.8002, L501.0250, L100.0100, L3890.6006 ####[facility] [address] [place], [address] Eosinophils/100 WBC (Bld) 1.1 % Normal 0-5 [facility] Comment on above: Performed By: #### B TS, L509.8002, L501.0250, L100.0100, L3890.6006 ####[facility] [address] [place], [address] Erythrocyte distribution width (RBC) [Ratio] 13.3 % Normal 11.6-14.6 [facility] Comment on above: Performed By: #### B TS, L509.8002, L501.0250, L100.0100, L3890.6006 ####[facility] [address] [place], [address] Hematocrit (Bld) [Volume fraction] 35.2 % Low 37-47 [facility] Comment on above: Performed By: #### B TS, L509.8002, L501.0250, L100.0100, L3890.6006 ####[facility] [address] [place], [address] Hemoglobin (Bld) [Mass/Vol] 12.1 g/dL Normal 12.0-15.0 [facility] Comment on above: Performed By: #### B TS, L509.8002, L501.0250, L100.0100, L3890.6006 ####[facility] [address] [place], [address] IG% 0.600 Normal 0.0-0.9 [facility] Comment on above: Result Comment: IG% - Immature Granulocytes (promyelocytes, myelocytes and metamyelocytes) > 1% indicates that a LEFT SHIFT is Present. Performed By: #### B TS, L509.8002, L501.0250, L100.0100, L3890.6006 ####[facility] [address] [place], [address] Lymphocytes/100 WBC (Bld) 15.0 % Low 19-41 [facility] Comment on above: Performed By: #### B TS, L509.8002, L501.0250, L100.0100, L3890.6006 ####[facility] [address] [place], [address] MCH (RBC) [Entitic mass] 31.6 pg Normal 27.0-32.0 [facility] Comment on above: Performed By: #### B TS, L509.8002, L501.0250, L100.0100, L3890.6006 ####[facility] [address] [place], [address] MCHC (RBC) [Mass/Vol] 34.4 g/dL Normal 32-36 [facility] Comment on above: Performed By: #### B TS, L509.8002, L501.0250, L100.0100, L3890.6006 ####[facility] [address] [place], [address] MCV (RBC) [Entitic vol] 91.9 fL Normal 81-99 [facility] Comment on above: Performed By: #### B TS, L509.8002, L501.0250, L100.0100, L3890.6006 ####[facility] [address] [place], [address] Monocytes/100 WBC (Bld) 5.6 % Normal 0-10 [facility] Comment on above: Performed By: #### B TS, L509.8002, L501.0250, L100.0100, L3890.6006 ####[facility] [address] [place], [address] Neutrophils/100 WBC (Bld) 76.9 % High 47-70 [facility] Comment on above: Performed By: #### B TS, L509.8002, L501.0250, L100.0100, L3890.6006 ####[facility] [address] [place], [address] Nucleated RBC (Bld) [#/Vol] 0 10*3/uL Normal 0-5 [facility] Comment on above: Performed By: #### B TS, L509.8002, L501.0250, L100.0100, L3890.6006 ####[facility] [address] [place], [address] Platelet mean volume (Bld) [Entitic vol] 10.0 fL Normal 6.2-12.0 [facility] Comment on above: Performed By: #### B TS, L509.8002, L501.0250, L100.0100, L3890.6006 ####[facility] [address] [place], [address] Platelets (Bld) [#/Vol] 149 10*3/uL Low 150-450 [facility] Comment on above: Performed By: #### B TS, L509.8002, L501.0250, L100.0100, L3890.6006 ####[facility] [address] [place], [address] RBC (Bld) [#/Vol] 3.83 10*6/uL Low 4.2-5.4 [facility] Comment on above: Performed By: #### B TS, L509.8002, L501.0250, L100.0100, L3890.6006 ####[facility] [address] [place], [address] RDW SD 43.6 fl Normal 35.1-43.9 [facility] Comment on above: Performed By: #### B TS, L509.8002, L501.0250, L100.0100, L3890.6006 ####[facility] [address] [place], [address] WBC (Bld) [#/Vol] 6.6 10*3/uL Normal 4.4-11.0 [facility] Comment on above: Performed By: #### B TS, L509.8002, L501.0250, L100.0100, L3890.6006 ####[facility] [address] [place], [address] Eosinophil percentageOrdered By: Coby Wong on 02-25-2025 Eosinophils/100 WBC (Bld) 1.1 % 0-5 [facility] Erythrocyte distribution wid th ratioOrdered By: Coby Wong on 02-25-2025 Erythrocyte distribution width (RBC) [Ratio] 13.3 % 11.6-14.6 [facility] Erythrocyte distribution wid th standard deviationOrdered By: Coby Wong on 02-25-2025 Erythrocyte distribution width (RBC) [Ratio] 43.6 fl 35.1-43.9 [facility] Glucose Challenge Gest 1H 50 marcello 02-25-2025 GLU GEST 50g 1H 88 mg/dL Normal 70-140 [facility] Comment on above: Performed By: #### B TS, L509.8002, L501.0250, L100.0100, L3890.6006 ####[facility] [address] [place], [place], [address] Glucose measurement at 2 jena rs post-dose gestational glucose tolerance testOrdered By: Coby Wong on 02-25-2025 Glucose [Mass/Vol] 88 mg/dL 70-140 [facility] HIVon 02-25-2025 HIV Non-Reactive Normal Nonreactive [facility] Comment on above: Result Comment: Non- Reactive Reactive Repeatedly reactive samples must be confirmed according to CDC recommended confirmatory algorithms. The subresults for either HIVAG or AHIV can be used as an aid in the selection of the confirmation algorithm for reactive samples. Send out specimens with Reactive results to [facility] for confirmation. Order the HIV antibody detection and differentiation: lc#[id number] Performed By: #### B TS, L509.8002, L501.0250, L100.0100, L3890.6006 ####[facility] [address] [place], [address] Hematocrit Auto (Bld) [Volum e fraction]Ordered By: Coby Wong on 02-25-2025 Hematocrit (Bld) [Volume fraction] 35.2 % Low 37-47 [facility] Hemoglobin measurementOrdere d By: Coby Wong on 02-25-2025 Hemoglobin (Bld) [Mass/Vol] 12.1 g/dL 12.0-15.0 [facility] Immature granulocytes/100 WB C Auto (Bld)Ordered By: Coby Wong on 02-25-2025 Immature granulocytes/100 WBC (Bld) 0.600 % 0.0-0.9 [facility] Comment on above: IG% - Immature Granu locytes (promyelocytes, myelocytes and metamyelocytes) > 1% indicates that a LEFT SHIFT is Present. Laboratory - Chemistry and C hemistry - challengeOrdered By: Harriett Acevedo on 02-25-2025 Glucose Ql (U) Negative [facility] Laboratory - UrinalysisOrder ed By: Harriett Acevedo on 02-25-2025 Protein Ql (U) Negative [facility] MCV (mean corpuscular volume ) determinationOrdered By: Coby Wong on 02-25-2025 MCV (RBC) [Entitic vol] 91.9 fL 81-99 [facility] Mean corpuscular hemoglobin (MCH) determinationOrdered By: Coby Wong on 02-25-2025 MCH (RBC) [Entitic mass] 31.6 pg 27.0-32.0 [facility] Mean corpuscular hemoglobin concentration (MCHC) determinationOrdered By: Coby Wong on 02-25-2025 MCHC (RBC) [Mass/Vol] 34.4 g/dL 32-36 [facility] Mean platelet volume determi nationOrdered By: Coby Wong on 02-25-2025 Platelet mean volume (Bld) [Entitic vol] 10.0 fL 6.2-12.0 [facility] Monocyte percentageOrdered B y: Coby Wong on 02-25-2025 Monocytes/100 WBC (Bld) 5.6 % 0-10 [facility] Neutrophil percentageOrdered By: Coby Wong on 02-25-2025 Neutrophils/100 WBC (Bld) 76.9 % High 47-70 [facility] No Panel InformationOrdered By: Coby Wong on 02-25-2025 HIV (1&2) Antibody Non-Reactive Nonreactive [facility] Comment on above: Non-ReactiveReactive Repeatedly reactive samples must be confirmed according to CDC recommended confirmatory algorithms. The subresults for either HIVAG or AHIV can be used as an aid in the selection of the confirmation algorithm for reactive samples.Send out specimens with Reactive results to [facility] for confirmation.Order the HIV antibody detection and differentiation: #[id number] Nucleated red blood cell per centageOrdered By: Coby Wong on 02-25-2025 Nucleated RBC/100 WBC (Bld) [Ratio] 0 % 0-5 [facility] Supervisor Shop Office Visit Reporton 02-25-2025 Supervisor Shop Office Visit Report [facility] [address], [address] [place] [address] OFFICE VISIT Date of Service: 02/25/25 MR#: [id number] Acct: [id number] Name: SHARA MONTES Rep #: [id number] : 1990 Provider: Dr. Harriett gardiner MD Age/Sex: 34/F [place] [facility] [place] Status: Signed Intake Vital Signs 12/30/24 10:13 01/27/25 14:11 02/25/25 09:49 Height 5 ft 4 in 5 ft 4 in 5 ft 4 in Weight: 187 lb 8 oz 189 lb 5 oz BMI 32.1 32.5 BP 108/70 118/75 Intake Visit Reasons: 28wk ob/glucose Inspector Set Up And Lay Out Required: No Is patient in pain?: No Allergies No Known Allergies Allergy (Verified 02/25/25 09:49) Medications ???Medication ???Instructions ???Recorded ???Confirmed ???Type docosahexaenoic acid 200 mg mg PO 11/11/24 02/25/25 History capsule ( DHA) Last Menstrual Period: 08/09/24 Zika: Zika virus screening: Negative : No PFSH PFSH Medical History Seasonal allergies Family History Grandmother Colon cancer, Onset Age: 81 Hypertension Sister Hypertension, Onset Age: 40 Grandfather CVA (cerebral vascular accident), Onset Age: 75 Social History adopted: No household members: spouse and children number of children: 5 current occupation: [employer] current occupational exposures/hazards: No pets and animals: [...] physical activity do you participate in: none kiana/quaker: Druze seatbelt use: always do you feel safe [...] - full term 7lbs 5oz Female none [facility] Helio 07/15/12 Kirk 40 live - full term 7lbs 12oz Male none Home Helio 05/31/14 Sinan 40 live - full term 7lbs 8oz Male none Home Helio 05/05/16 [place] 40 live - full term 7lbs 2oz Male none Home Helio 06/14/17 7 spontaneous 04/13/18 10 spontaneous 03/20/19 Fab 40 live - full term 7lbs 13oz Male none [facility] Delivery Date: 03/20/19 Last Updated by: Clara Araiza RN "Vein problems", World History Teacher KRYSTYNA for delivery HPI 28wk ob/glucose Details: SHARA MONTES is a 34 year old who presents for routine OB visit. OB Visit HORTENCIA Calculator Estimated Delivery Date Method Current WG Current Estimate 05/16/25 LMP (Certain) 28w 4d Expected Delivery Route/Plan Labor Preferences- CB/BF classes: [] labor support person: [] labor intervention preferences: [] pain management options preferred: [] cut cord/dad catch: [] : [] PP control planned: [] discussed possible routes of delivery and associated risks: [] special requests: [] Specific Issue/Plans Covid status: [] Flu vaccine: declined Tdap vaccine: declined Rhogam: given LARC form signed: [] movement and labor precautions reviewed. Problem list reviewed and updated with the most current plan of care details and appropriate orders placed. Relevant counseling for the gestational age provided. Continue routine care and follow up unless otherwise noted in visit notes/problem list details Initial Weight: Not Recorded Date -???-???-???-???-???- ???-???-???-???-???-? [...] Negative 150 -???-???-???-???-???- ???-???-???-???-???-? ??-???- JV- patient i (more content not included)... Normal [facility] Platelet countOrdered By: Wayne Wong on 02-25-2025 Platelets (Bld) [#/Vol] 149 10*3/uL Low 150-450 [facility] RBC Auto (Bld) [#/Vol]Ordere d By: Coby Wong on 02-25-2025 RBC (Bld) [#/Vol] 3.83 10*6/uL Low 4.2-5.4 [facility] Syphilis Antibodieson 2024 Syphilis Abs Non-Reactive Normal Nonreactive [facility] Comment on above: Performed By: #### B TS, L509.8002, L501.0250, L100.0100, L3890.6006 ####[facility] [address] [place], [place], [address] Type AND Screenon 02-25-2025 ABO and Rh group Nom (Bld) Blood group A Rh(D) negative Normal [facility] Comment on above: Order Comment: PN Performed By: #### B TS, L509.8002, L501.0250, L100.0100, L3890.6006 ####[facility] [address] [place], [address] White blood cell (WBC) count Ordered By: Coby Wong on 02-25-2025 WBC (Bld) [#/Vol] 6.6 10*3/uL 4.4-11.0 [facility] Laboratory - Chemistry and C hemistry - challengeOrdered By: Coby Wong on 01-27-2025 Glucose Ql (U) Negative [facility] Laboratory - UrinalysisOrder ed By: Coby Wong on 01-27-2025 Protein Ql (U) Negative [facility] Supervisor Shop Office Visit Reporton 01-27-2025 Supervisor Shop Office Visit Report [facility] [address], [address] [place] [address] OFFICE VISIT Date of Service: 01/27/25 MR#: [id number] Acct: [id number] Name: SHARA MONTES Rep #: [id number] : 1990 Provider: JESUS Miller ams Age/Sex: 34/F [place] [facility] [place] Status: Signed Intake Vital Signs 12/30/24 10:13 01/27/25 14:11 Height 5 ft 4 in 5 ft 4 in Weight: 187 lb 8 oz BMI 32.1 BP 108/70 Intake Visit Reasons: 24wk ob Chief Complaint: 24wk ob Inspector Set Up And Lay Out Required: No Is patient in pain?: No Allergies No Known Allergies Allergy (Verified 01/27/25 14:08) Medications ???Medication ???Instructions ???Recorded ???Confirmed ???Type docosahexaenoic acid 200 mg mg PO 11/11/24 01/27/25 History capsule ( DHA) Last Menstrual Period: 08/09/24 : No PFSH PFSH Medical History Seasonal allergies Family History Grandmother Colon cancer, Onset Age: 81 Hypertension Sister Hypertension, Onset Age: 40 Grandfather CVA (cerebral vascular accident), Onset Age: 75 Social History adopted: No household members: spouse and children number of children: 5 current occupation: [employer] current occupational exposures/hazards: No pets and animals: [...] physical activity do you participate in: none kiana/quaker: Druze seatbelt use: always do you feel safe [...] - full term 7lbs 5oz Female none [facility] Hel[facility] 07/15/12 Kirk 40 live - full term 7lbs 12oz Male none Home Helio 05/31/14 Sinan 40 live - full term 7lbs 8oz Male none Home Helio 05/05/16 [place] 40 live - full term 7lbs 2oz Male none Home Helio 06/14/17 7 spontaneous 04/13/18 10 spontaneous 03/20/19 Fab 40 live - full term 7lbs 13oz Male none [facility] Efraín Cadet Delivery Date: 03/20/19 Last Updated by: Clara Araiza RN "Vein problems", World History Teacher KRYSTYNA for delivery HPI 24wk ob Details: SHARA MONTES is a 34 year old who presents for routine OB visit. OB Visit HORTENCIA Calculator Estimated Delivery Date Method Current WG Current Estimate 05/16/25 LMP (Certain) 24w 3d Initial Weight: Not Recorded Date -???-???-???-???-???- [...] us today we will start baby asa. 01/27/25 -???-???-???-???-???- ???-???-???-???-???-? ??-???- 24w 3d 18 (more content not included)... Normal [facility] Laboratory - Chemistry and C hemistry - challengeOrdered By: Toma Tay on 12-30-2024 Glucose Ql (U) Negative [facility] Laboratory - UrinalysisOrder ed By: Toma Tay on 12-30-2024 Protein Ql (U) Negative [facility] OB Anatomy w/ Transvaginalon 12-30-2024 OB Anatomy w/ Transvaginal [facility] Imaging Services [address] [place] [address] OB Anatomy w/ Transvaginal MR#: [id number] Acct: [id number] Name: SHARA MONTES Rep #: [id number] : 1990 F 34 From: Bebeto page MD PCP: Care Physician,No Primary Status: [facility] Study: OB Anatomy w/ Transvaginal Date of Exam: 12/30 Exam# [id number] Ordering Dr: Harriett Acevedo PROCEDURE: OB ANATOMY [...] 19 weeks and 5 days. Reading Location: [id number] CC: Dr. Harriett Acevedo MD; No Primary Care Physician News Reel Cameraman: Signed Normal [facility] Supervisor Shop Office Visit Reporton 12-30-2024 Supervisor Shop Office Visit Report [facility] [address], [address] [place] [address] OFFICE VISIT Date of Service: 12/30/24 MR#: [id number] Acct: [id number] Name: SHARA MONTES Rep #: [id number] : 1990 Provider: Dr. Toma Sage DO Age/Sex: 34/F Location[place] [facility] Status: Signed Intake Vital Signs 11/12/24 10:39 12/03/24 09:23 12/30/24 10:13 12/30/24 10:13 Height 5 ft 4 in 5 ft 4 in 5 ft 4 in 5 ft 4 in Weight: 183 lb BMI 31.4 BP 98/66 Intake Visit Reasons: 20wk ob *ok per SM Inspector Set Up And Lay Out Required: No Is patient in pain?: No [...] children number of children: 5 current occupation: [employer] current occupational exposures/hazards: No pets and animals: [...] physical activity do you participate in: none kiana/quaker: Druze seatbelt use: always do you feel safe [...] - full term 7lbs 5oz Female none [facility] Helio 07/15/12 Kirk 40 live - full term 7lbs 12oz Male none Home Helio 05/31/14 Sinan 40 live - full term 7lbs 8oz Male none Home Helio 05/05/16 Pratima 40 live - full term 7lbs 2oz Male none Home Helio 06/14/17 7 spontaneous 04/13/18 10 spontaneous 03/20/19 Fab 40 live - full term 7lbs 13oz Male none [facility] Efraín Denise Helio Delivery Date: 03/20/19 Last Updated by: Clara Araiza RN "Vein problems", World History Teacher KRYSTYNA for delivery HPI 20wk ob *ok per SM Details: SHARA MONTES is a 34 year [...] us t (more content not included)... Normal [facility] Supervisor Shop Office Visit Reporton 12-03-2024 Supervisor Shop Office Visit Report [facility] [address], [address] [place] [address] OFFICE VISIT Date of Service: 12/03/24 MR#: [id number] Acct: [id number] Name: SHARA MONTES Rep #: [id number] : 1990 Provider: Dr. Toma Sage DO Age/Sex: 34/F Location[place] [facility] Status: Signed Intake Vital Signs 11/25/24 13:01 12/03/24 09:21 12/03/24 09:23 Height 5 ft 4 in 5 ft 4 in 5 ft 4 in Weight: 178 lb 176 lb 2 oz BMI 30.5 30.2 BP 106/69 116/77 [facility] And [facility] Out Required: No Is patient in pain?: No [...] children number of children: 5 current occupation: [employer] current occupational exposures/hazards: No pets and animals: [...] physical activity do you participate in: none kiana/quaker: Druze seatbelt use: always do you feel safe [...] - full term 7lbs 5oz Female none [facility] Helio 07/15/12 Kirk 40 live - full term 7lbs 12oz Male none Home Helio 05/31/14 Sinan 40 live - full term 7lbs 8oz Male none Home Helio 05/05/16 Pratima 40 live - full term 7lbs 2oz Male none Home [place] 06/14/17 7 spontaneous 04/13/18 10 spontaneous 03/20/19 Fab 40 live - full term 7lbs 13oz Male none [facility] Efraín Cadet Delivery Date: 03/20/19 Last Updated by: Clara Araiza, KIEL "Vein problems", World History Teacher KRYSTYNA for delivery HPI Rhogam Details: SHARA [...] use, Childb (more content not included)... Normal [facility] Transvaginal w/Preg USon Transvaginal w/Preg US [facility] Imaging Services [address] [place], [place] [address] Transvaginal w/Preg US MR#: [id number] Acct: [id number] Name: SHARA MONTES Rep #: [id number] : 1990 F 34 From: Kenneth Vasquez MD PCP: Care Physician,No Primary Status: REG CLI Study: Transvaginal w/Preg US Date of Exam: 12/03/24 Exam# [id number] Ordering Dr: Harriett Acevedo PROCEDURE: TRANSVAGINAL W/PREG [...] There is no visible abruption. Reading Location: [facility] CC: Dr. Harriett Acevdeo MD; No Primary Care Physician News Reel Cameraman: Signed Normal [facility] Type AND Screenon 12-03-2024 ABO and Rh group Nom (Bld) Blood group A Rh(D) negative Normal [facility] Comment on above: Order Comment: PN Performed By: #### L 501.9985, BTS, L3890.6301, L3890.6006, L3890.6102, L509.8002, L100.0100, L509.4006 #### [facility] Laboratory [address] [place], [address] Laboratory - Chemistry and C hemistry - challengeOrdered By: Toma Tay on 11-25-2024 Glucose Ql (U) Negative [facility] Laboratory - UrinalysisOrder ed By: Toma Tay on 11-25-2024 Protein Ql (U) Negative [facility] Supervisor Shop Office Visit Reporton 11-25-2024 Supervisor Shop Office Visit Report [facility] [address], [address] [place] [address] OFFICE VISIT Date of Service: 11/25/24 MR#: [id number] Acct: [id number] Name: SHARA MONTES Rep #: [id number] : 1990 Provider: Dr. Toma Sage DO Age/Sex: 34/F Location: [facility] Status: Signed Intake Vital Signs 11/12/24 10:39 11/25/24 13:01 Height 5 ft 4 in 5 ft 4 in Weight: 178 lb BMI 30.5 BP 106/69 Intake Visit Reasons: 15w3d, spotting since Sunday Chief Complaint: 15wk and spotting Inspector Set Up And Lay Out Required: No Is patient in pain?: No Allergies No Known Allergies Allergy (Verified 11/25/24 12:59) Medications ???Medication ???Instructions ???Recorded ???Confirmed ???Type docosahexaenoic acid 200 mg mg PO 11/11/24 11/25/24 History capsule ( DHA) Last Menstrual Period: 03/29/25 : No PFSH PFSH Medical History Seasonal allergies Family History Grandmother Colon cancer, Onset Age: 81 Hypertension Sister Hypertension, Onset Age: 40 Grandfather CVA (cerebral vascular accident), Onset Age: 75 Social History adopted: No household members: spouse and children number of children: 5 current occupation: [employer] current occupational exposures/hazards: No pets and animals: [...] physical activity do you participate in: none kiana/quaker: Druze seatbelt use: always do you feel safe [...] - full term 7lbs 5oz Female none [facility] Helio 07/15/12 Kirk 40 live - full term 7lbs 12oz Male none Home Helio 05/31/14 Sinan 40 live - full term 7lbs 8oz Male none Home Helio 05/05/16 Pratima 40 live - full term 7lbs 2oz Male none Home Helio 06/14/17 7 spontaneous 04/13/18 10 spontaneous 03/20/19 Fab 40 live - full term 7lbs 13oz Male none [facility] Efraín Cadet Delivery Date: 03/20/19 Last Updated by: Clara Araiza RN "Vein problems", World History Teacher KRYSTYNA for delivery HPI 15w3d, spotting since [...] Childbirth classes/Hospi (more content not included)... Normal [facility] Chlamydia/GC NING aptimaon CHLAMY,NUC ACID Negative Normal Negative [facility] Comment on above: Performed By: #### M 100.2200, L7000.1800 ####[facility] [address] [place], [place], [id number] GC BY NUC ACID Negative Normal Negative [facility] Comment on above: Result Comment: Perf ormed at: =G - [facility] [address] [id number] Costumer: Mariaelena Swenson MD, Phone: [phone] Performed By: #### M 100.2200, L7000.1800 ####[facility] [address] [place], [place], [id number] Urine Cultureon 11-14-2024 [facility] Mixed Gram Positive Organisms [place] Count 25,000-50,000 MIXC Mixed contaminants. Submit a new specimen if indicated. Normal [facility] Comment on above: Performed By: #### M 100.2200, L7000.1800 ####[facility] [address] [place], [place], [id number] Absolute lymphocyte countOrd ered By: Harriett Acevedo on 11-12-2024 Lymphocytes Auto (Unsp spec) [#/Vol] 1.33 10*3/uL 0.83-4.51 [facility] Absolute neutrophil countOrd ered By: Harriett Acevedo on 11-12-2024 Neutrophils (Bld) [#/Vol] 3.8 10*3/uL 2.0-7.7 [facility] Automated lymphocyte count a s percentage of total leukocytesOrdered By: Harriett Acevedo on 11-12-2024 Lymphocytes/100 WBC Auto (Unsp spec) 24.4 % 19-41 [facility] Basophil percentageOrdered B y: Harriett Acevedo on 11-12-2024 Basophils/100 WBC (Bld) 0.9 % 0-1 [facility] CBC W/Diff, Automatedon Absolute Lymph 1.33 X10 3/uL Normal 0.83-4.51 [facility] Comment on above: Performed By: #### L 501.9985, BTS, L3890.6301, L3890.6006, L3890.6102, L509.8002, L100.0100, L509.4006 #### [facility] Laboratory [address] [facility] [place], [address] Absolute Neut 3.8 X10 3/uL Normal 2.0-7.7 [facility] Comment on above: Performed By: #### L 501.9985, BTS, L3890.6301, L3890.6006, L3890.6102, L509.8002, L100.0100, L509.4006 #### [facility] [address] [place], [address] Basophils/100 WBC (Bld) 0.9 % Normal 0-1 [facility] Comment on above: Performed By: #### L 501.9985, BTS, L3890.6301, L3890.6006, L3890.6102, L509.8002, L100.0100, L509.4006 #### [facility] [address] [place], [address] Eosinophils/100 WBC (Bld) 0.9 % Normal 0-5 [facility] Comment on above: Performed By: #### L 501.9985, BTS, L3890.6301, L3890.6006, L3890.6102, L509.8002, L100.0100, L509.4006 #### [facility] [address] [place], [address] Erythrocyte distribution width (RBC) [Ratio] 12.4 % Normal 11.6-14.6 [facility] Comment on above: Performed By: #### L 501.9985, BTS, L3890.6301, L3890.6006, L3890.6102, L509.8002, L100.0100, L509.4006 #### [facility] [address] [place], [address] Hematocrit (Bld) [Volume fraction] 39.4 % Normal 37-47 [facility] Comment on above: Performed By: #### L 501.9985, BTS, L3890.6301, L3890.6006, L3890.6102, L509.8002, L100.0100, L509.4006 #### [facility] [address] [place], [address] Hemoglobin (Bld) [Mass/Vol] 13.9 g/dL Normal 12.0-15.0 [facility] Comment on above: Performed By: #### L 501.9985, BTS, L3890.6301, L3890.6006, L3890.6102, L509.8002, L100.0100, L509.4006 #### [facility] [address] [place], [address] IG% 0.400 Normal 0.0-0.9 [facility] Comment on above: Result Comment: IG% - Immature Granulocytes (promyelocytes, myelocytes and metamyelocytes) > 1% indicates that a LEFT SHIFT is Present. Performed By: #### L 501.9985, BTS, L3890.6301, L3890.6006, L3890.6102, L509.8002, L100.0100, L509.4006 #### [facility] [address] [place], [address] Lymphocytes/100 WBC (Bld) 24.4 % Normal 19-41 [facility] Comment on above: Performed By: #### L 501.9985, BTS, L3890.6301, L3890.6006, L3890.6102, L509.8002, L100.0100, L509.4006 #### [facility] [address] [place], [address] MCH (RBC) [Entitic mass] 31.0 pg Normal 27.0-32.0 [facility] Comment on above: Performed By: #### L 501.9985, BTS, L3890.6301, L3890.6006, L3890.6102, L509.8002, L100.0100, L509.4006 #### [facility] [address] [place], [address] MCHC (RBC) [Mass/Vol] 35.3 g/dL Normal 32-36 [facility] Comment on above: Performed By: #### L 501.9985, BTS, L3890.6301, L3890.6006, L3890.6102, L509.8002, L100.0100, L509.4006 #### [facility] [address] [place], [address] MCV (RBC) [Entitic vol] 87.8 fL Normal 81-99 [facility] Comment on above: Performed By: #### L 501.9985, BTS, L3890.6301, L3890.6006, L3890.6102, L509.8002, L100.0100, L509.4006 #### [facility] [address] [place], [address] Monocytes/100 WBC (Bld) 4.8 % Normal 0-10 [facility] Comment on above: Performed By: #### L 501.9985, BTS, L3890.6301, L3890.6006, L3890.6102, L509.8002, L100.0100, L509.4006 #### [facility] [address] [place], [address] Neutrophils/100 WBC (Bld) 68.6 % Normal 47-70 [facility] Comment on above: Performed By: #### L 501.9985, BTS, L3890.6301, L3890.6006, L3890.6102, L509.8002, L100.0100, L509.4006 #### [facility] [address] [place], [address] Nucleated RBC (Bld) [#/Vol] 0 10*3/uL Normal 0-5 [facility] Comment on above: Performed By: #### L 501.9985, BTS, L3890.6301, L3890.6006, L3890.6102, L509.8002, L100.0100, L509.4006 #### [facility] [address] [place], [address] Platelet mean volume (Bld) [Entitic vol] 10.3 fL Normal 6.2-12.0 [facility] Comment on above: Performed By: #### L 501.9985, BTS, L3890.6301, L3890.6006, L3890.6102, L509.8002, L100.0100, L509.4006 #### [facility] [address] [place], [address] Platelets (Bld) [#/Vol] 163 10*3/uL Normal 150-450 [facility] Comment on above: Performed By: #### L 501.9985, BTS, L3890.6301, L3890.6006, L3890.6102, L509.8002, L100.0100, L509.4006 #### [facility] [address] [place], [address] RBC (Bld) [#/Vol] 4.49 10*6/uL Normal 4.2-5.4 [facility] Comment on above: Performed By: #### L 501.9985, BTS, L3890.6301, L3890.6006, L3890.6102, L509.8002, L100.0100, L509.4006 #### [facility] [address] [place], [address] RDW SD 39.4 fl Normal 35.1-43.9 [facility] Comment on above: Performed By: #### L 501.9985, BTS, L3890.6301, L3890.6006, L3890.6102, L509.8002, L100.0100, L509.4006 #### [facility] [address] [place], [address] WBC (Bld) [#/Vol] 5.5 10*3/uL Normal 4.4-11.0 [facility] Comment on above: Performed By: #### L 501.9985, BTS, L3890.6301, L3890.6006, L3890.6102, L509.8002, L100.0100, L509.4006 #### [facility] [address] [place], [address] Chlamydia trachomatis rRNA d etection by probe and target amplification methodOrdered By: Harriett Calderóncharles on 11-12-2024 C. trachomatis rRNA NING+probe Ql (Unsp spec) Negative Negative [facility] Eosinophil percentageOrdered By: Harriett Calderóncharles on 11-12-2024 Eosinophils/100 WBC (Bld) 0.9 % 0-5 [facility] Erythrocyte distribution wid th ratioOrdered By: Harriett Calderóncharles on 11-12-2024 Erythrocyte distribution width (RBC) [Ratio] 12.4 % 11.6-14.6 [facility] Erythrocyte distribution wid th standard deviationOrdered By: Harriett Corralkvng on 11-12-2024 Erythrocyte distribution width (RBC) [Ratio] 39.4 fl 35.1-43.9 [facility] HIVon 11-12-2024 HIV Non-Reactive Normal Nonreactive [facility] Comment on above: Result Comment: Non- Reactive Reactive Repeatedly reactive samples must be confirmed according to CDC recommended confirmatory algorithms. The subresults for either HIVAG or AHIV can be used as an aid in the selection of the confirmation algorithm for reactive samples. Send out specimens with Reactive results to [facility] for confirmation. Order the HIV antibody detection and differentiation: lc#[id number] Performed By: #### L 501.9985, BTS, L3890.6301, L3890.6006, L3890.6102, L509.8002, L100.0100, L509.4006 #### [facility] [address] [facility]. [place], [place], [address] Hematocrit Auto (Bld) [Volum e fraction]Ordered By: Harriettlibby Acevedo on 11-12-2024 Hematocrit (Bld) [Volume fraction] 39.4 % 37-47 [facility] Hemoglobin A1con 11-12-2024 HbA1c (Bld) [Mass fraction] 4.6 % Normal <=5.6 [facility] Comment on above: Result Comment: Norm al < 5.7 % Prediabetic 5.7 - 6.4 % Diabetic >or= 6.5 % Please note range changes. Performed By: #### L 501.9985, BTS, L3890.6301, L3890.6006, L3890.6102, L509.8002, L100.0100, L509.4006 #### [facility] [address] [place], [address] Hemoglobin A1c percentageOrd ered By: Harriett Acevedo on 11-12-2024 HbA1c (Bld) [Mass fraction] 4.6 % <5.7 [facility] Comment on above: Normal < 5.7 % Predi abetic 5.7 - 6.4 % Diabetic >or= 6.5 % Please note range changes. Hemoglobin measurementOrdere d By: Harriett Acevedo on 11-12-2024 Hemoglobin (Bld) [Mass/Vol] 13.9 g/dL 12.0-15.0 [facility] Hepatitis C Antibodyon 11-12 Hepatitis C Ab Non-Reactive Normal Nonreactive [facility] Comment on above: Result Comment: Reac tive: Presumptive evidence of antibodies to HCV. Follow CDC recommendations for supplemental testing. Non-Reactive: Antibodies to HCV were not detected; does not exclude the possibility of exposure to HCV Reactive Results are presumptive evidence of antibodies to HCV. Follow CDC recommendations for supplemental testing. Order confirmation testing: HCV Quant by PCR testing - HCVPCR #[id number] Non Reactive: < 0.8 Equivocal: >/= 0.8 to < 1.0 Reactive: >/= 1.0 The CDC requires that a reactive/equivocal HCV antibody result be sent out for confirmation. HCV Quant by PCR testing. Performed By: #### L 501.9985, BTS, L3890.6301, L3890.6006, L3890.6102, L509.8002, L100.0100, L509.4006 #### [facility] [address] [place], [place], [id number] Immature granulocytes/100 WB C Auto (Bld)Ordered By: Harriett Acevedo on 11-12-2024 Immature granulocytes/100 WBC (Bld) 0.400 % 0.0-0.9 [facility] Comment on above: IG% - Immature Granu locytes (promyelocytes, myelocytes and metamyelocytes) > 1% indicates that a LEFT SHIFT is Present. L3890.6102on 11-12-2024 HEP B Surf Ag Non-Reactive Normal Nonreactive [facility] Comment on above: Result Comment: Reac tive: Presumptive evidence of HBV. Repeatedly reactive samples must be confirmed using a neutralization test ([employer] HBsAg Confirmatory Test) Non-Reactive: HBsAg not detected; does not exclude the possibility of exposure to HBV Performed By: #### L 501.9985, BTS, L3890.6301, L3890.6006, L3890.6102, L509.8002, L100.0100, L509.4006 #### [facility] [address] [facility] [place], [place], [address] L509.4006on 11-12-2024 Rubella IgG REAC Normal Nonreactive [facility] Comment on above: Result Comment: Anti body Result: Interpretation Non-Reactive: Non-Immune Reactive: Immune The following results were obtained with the [employer] Rubella IgG assay. Results from assays of other manufacturers cannot be used interchangeably. Performed By: #### L 501.9985, BTS, L3890.6301, L3890.6006, L3890.6102, L509.8002, L100.0100, L509.4006 #### [facility] [address] [place], [place], [id number] Laboratory - Microbiology an d Antimicrobial susceptibilityOrdered By: Harriett Acevedo on 11-12-2024 HBV surface Ag Ql (S) Non-Reactive Nonreactive [facility] Comment on above: Reactive: Presumptiv e evidence of HBV. Repeatedly reactive samples must be confirmed using a neutralization test ([employer] HBsAg Confirmatory Test)Non-Reactive: HBsAg not detected; does not exclude the possibility of exposure to HBV MCV (mean corpuscular volume ) determinationOrdered By: Harriett Acevedo on 11-12-2024 MCV (RBC) [Entitic vol] 87.8 fL 81-99 [facility] Mean corpuscular hemoglobin (MCH) determinationOrdered By: Harriett Acevedo on 11-12-2024 MCH (RBC) [Entitic mass] 31.0 pg 27.0-32.0 [facility] Mean corpuscular hemoglobin concentration (MCHC) determinationOrdered By: Harriett Acevedo on 11-12-2024 MCHC (RBC) [Mass/Vol] 35.3 g/dL 32-36 [facility] Mean platelet volume determi nationOrdered By: Harriett Acevedo on 11-12-2024 Platelet mean volume (Bld) [Entitic vol] 10.3 fL 6.2-12.0 [facility] Monocyte percentageOrdered B y: Harriett Acevedo on 11-12-2024 Monocytes/100 WBC (Bld) 4.8 % 0-10 [facility] Neisseria gonorrhoeae nuclei c acid detection by amplified probe techniqueOrdered By: Harriett Acevedo on 11-12-2024 N. gonorrhoeae DNA NING+probe Ql (Unsp spec) Negative Negative [facility] Comment on above: Performed at: =[address] [id number] Director: Mariaelena Swenson MD, Phone: [phone] Neutrophil percentageOrdered By: Harriett Acevedo on 11-12-2024 Neutrophils/100 WBC (Bld) 68.6 % 47-70 [facility] No Panel InformationOrdered By: Harriett Acevedo on 11-12-2024 HIV (1&2) Antibody Non-Reactive Nonreactive [facility] Comment on above: Non-ReactiveReactive Repeatedly reactive samples must be confirmed according to CDC recommended confirmatory algorithms. The subresults for either HIVAG or AHIV can be used as an aid in the selection of the confirmation algorithm for reactive samples.Send out specimens with Reactive results to [facility] for confirmation.Order the HIV antibody detection and differentiation: #[id number] Nucleated red blood cell per centageOrdered By: Harriett Acevedo on 11-12-2024 Nucleated RBC/100 WBC (Bld) [Ratio] 0 % 0-5 [facility] Supervisor Shop Office Visit Reporton 11-12-2024 Supervisor Shop Office Visit Report [facility] [address], [address] [place] [address] OFFICE VISIT Date of Service: 11/12/24 MR#: [id number] Acct: [id number] Name: SHARA MONTES Rep #: [id number] : 1990 Provider: Dr. Harriett gardiner MD Age/Sex: 34/F [place] [facility] [place] Status: Signed Intake Vital Signs 07/21/24 11:02 11/12/24 10:39 Height 5 ft 4 in 5 ft 4 in Weight: 176 lb BMI 30.2 BP 115/76 Intake Visit Reasons: *EST* NOB LMP 08/09, HORTENCIA 05/16 Inspector Set Up And Lay Out Required: No Is patient in pain?: No Feel stressed/tense/nervou s/anxious/difficulty sleeping: not at all Allergies No Known Allergies Allergy (Verified 11/12/24 10:41) Medications ???Medication ???Instructions ???Recorded ???Confirmed ???Type docosahexaenoic acid 200 mg mg PO 11/11/24 11/12/24 History capsule ( DHA) Last Menstrual Period: 08/09/24 Zika: Zika virus screening: Negative [facility] Medical History Seasonal allergies Family History Grandmother Colon cancer, Onset Age: 81 Hypertension Sister Hypertension, Onset Age: 40 Grandfather CVA (cerebral vascular accident), Onset Age: 75 Social History adopted: No household members: spouse and children number of children: 5 current occupation: [employer] current occupational exposures/hazards: No pets and animals: [...] physical activity do you participate in: none kiana/quaker: Druze seatbelt use: always do you feel safe [...] - full term 7lbs 5oz Female none [facility] Helio 07/15/12 Kirk 40 live - full term 7lbs 12oz Male none Home Helio 05/31/14 Sinan 40 live - full term 7lbs 8oz Male none Home Helio 05/05/16 [place] 40 live - full term 7lbs 2oz Male none Home Helio 06/14/17 7 spontaneous 04/13/18 10 spontaneous 03/20/19 Fab 40 live - full term 7lbs 13oz Male none [facility] Efraín Helio Delivery Date: 03/20/19 Last Updated by: Clara Araiza RN "Vein problems", World History Teacher KRYSTYNA for delivery HPI *EST* NOB LMP [...] History of (more content not included)... Normal [facility] Platelet countOrdered By: Elena Acevedo on 11-12-2024 Platelets (Bld) [#/Vol] 163 10*3/uL 150-450 [facility] RBC Auto (Bld) [#/Vol]Ordere d By: Harriett Acevedo on 11-12-2024 RBC (Bld) [#/Vol] 4.49 10*6/uL 4.2-5.4 [facility] Syphilis Antibodieson 2024 Syphilis Abs Non-Reactive Normal Nonreactive [facility] Comment on above: Performed By: #### L 501.9985, BTS, L3890.6301, L3890.6006, L3890.6102, L509.8002, L100.0100, L509.4006 #### [facility] [address] [place], [place], [id number] Type AND Screenon 11-12-2024 Ab SCREEN GEL Negative Normal [facility] Comment on above: Order Comment: PN Performed By: #### L 501.9985, BTS, L3890.6301, L3890.6006, L3890.6102, L509.8002, L100.0100, L509.4006 #### [facility] [address] [place], [address] Urine cultureOrdered By: Royce Acevedo on 11-12-2024 Bacteria identified Cx Nom (U) Positive Abnormal [facility] White blood cell (WBC) count Ordered By: Harriett Acevedo on 11-12-2024 WBC (Bld) [#/Vol] 5.5 10*3/uL 4.4-11.0 [facility] PAP IG HPV APTIMA 16/18,45on 07-28-2024 ADEQ Comment Normal . [facility] Comment on above: Order Comment: Speci men Comment: [id number] Comment: Source.............CervixSpecimen Comment: No. of containers..01 ThinPrep Vial Result Comment: Sati sfactory for evaluation. Endocervical and/or squamous metaplastic cells (endocervical component) are present. Performed By: #### L 7400.0280 ####[facility] [address] [place], [place], [id number] COMM . Normal . [facility] Comment on above: Order Comment: Speci men Comment: [id number] Comment: Source.............CervixSpecimen Comment: No. of containers..01 ThinPrep Vial Performed By: #### L 7400.0280 ####[facility] [address] [place], [address] COMMENT Comment Normal . [facility] Comment on above: Order Comment: Speci men Comment: [id number] Comment: Source.............CervixSpecimen Comment: No. of containers..01 ThinPrep Vial Result Comment: This liquid based ThinPrep(R) pap test was screened with the use of an image guided system. Performed By: #### L 7400.0280 ####[facility] [address] [place], [address] DIAG Comment Abnormal . [facility] Comment on above: Order Comment: Speci men Comment: [id number] Comment: Source.............CervixSpecimen Comment: No. of containers..01 ThinPrep Vial Result Comment: EPIT HELIAL CELL ABNORMALITY. ATYPICAL SQUAMOUS CELLS OF UNDETERMINED SIGNIFICANCE (ASC-US). Performed By: #### L 7400.0280 ####[facility] [address] [place], [address] HPV APTIMA, HR Negative Normal Negative [facility] Comment on above: Order Comment: Speci men Comment: [id number] Comment: Source.............CervixSpecimen Comment: No. of containers..01 ThinPrep Vial Result Comment: This nucleic acid amplification test detects fourteen high- risk HPV types (16,18,31,33,35,39,45,51,52,56,58,59,66,68) without differentiation. Performed By: #### L 7400.0280 ####[facility] [address] [place], [address] HPV Elda Rfx Comment Normal . [facility] Comment on above: Order Comment: Speci men Comment: [id number] Comment: Source.............CervixSpecimen Comment: No. of containers..01 ThinPrep Vial Result Comment: Crit eria not met, HPV Genotype not performed. Performed at: - [facility] [id number] Costumer: Mariaelena Swenson MD, Phone: [phone] Performed at: = - [facility] [id number] Costumer: Mariaelena Swenson MD, Phone: [phone] Performed By: #### L 7400.0280 ####[facility] [address] [place], [place], [address] PAPSMR Comment Normal . [facility] Comment on above: Order Comment: Speci men Comment: [id number] Comment: Source.............CervixSpecimen Comment: No. of containers..01 ThinPrep Vial Result Comment: The Pap smear is a screening test designed to aid in the detection of premalignant and malignant conditions of the uterine cervix. It is not a diagnostic procedure and should not be used as the sole means of detecting cervical cancer. Both false-positive and false-negative reports do occur. Performed By: #### L 7400.0280 ####[facility] [address] [place], [place], [id number] Path.prov.IDC-9 Comment Normal . [facility] Comment on above: Order Comment: Speci men Comment: [id number] Comment: Source.............CervixSpecimen Comment: No. of containers..01 ThinPrep Vial Result Comment: R87. 610 Performed By: #### L 7400.0280 ####[facility] [address] [place], [place], [address] PERFORM Comment Normal . [facility] Comment on above: Order Comment: Speci men Comment: [id number] Comment: Source.............CervixSpecimen Comment: No. of containers..01 ThinPrep Vial Result Comment: Kenyon Moura, Talent Consultant (ASCP) Performed By: #### L 7400.0280 ####[facility] [address] [place], [place], [address] RECOMM Comment Abnormal . [facility] Comment on above: Order Comment: Speci men Comment: [id number] Comment: Source.............CervixSpecimen Comment: No. of containers..01 ThinPrep Vial Result Comment: Sugg est follow up as clinically appropriate. Performed By: #### L 7400.0280 ####[facility] [address] [place], [place], [address] SIGN Comment Normal . [facility] Comment on above: Order Comment: Speci men Comment: [id number] Comment: Source.............CervixSpecimen Comment: No. of containers..01 ThinPrep Vial Result Comment: Allyson Johnson MD, Pathologist Performed By: #### L 7400.0280 ####[facility] [address] [place], [place], [address] Cervical or vaginal specimen microscopic examination by liquid based cytology (reportOrdered By: Harriett Acevedo on 07-21-2024 Cytology report Cyto stain.thin prep Doc (Cvx/Vag) Comment . [facility] Comment on above: Criteria not met, HP V Genotype not performed.Performed at: [address] [id number] Director: Mariaelena Swenson MD, Phone: [phone] at: =[address] [id number] Director: Mariaelena Swenson MD, Phone: [phone] Cervical or vagninal specime n microscopic examination by cytology stain (reported asOrdered By: Harriett Acevedo on 07-21-2024 Cytology report Cyto stain Doc (Cvx/Vag) Comment . [facility] Comment on above: The Pap smear is a s creening test designed to aid in thedetection of premalignant and malignant conditions of theuterine cervix. It is not a diagnostic procedure andshould not be used as the sole means of detecting cervicalcancer. Both false-positive and false-negative reports dooccur. Plasterer Tender Cyto stain Nom (C vx/Vag) [ID]Ordered By: Harriett Acevedo on 07-21-2024 Pap Smear Performed By Comment . [facility] Comment on above: Jed Moura, Cytotec hnologist (ASCP) Cytology report Cyto stain D oc (Cvx/Vag)Ordered By: Harriett Acevedo on 07-21-2024 Thin Prep Pap Smear Comment . [facility] Comment on above: The Pap smear [...] 07-21-2024 HPV Genotype Special Info Comment . [facility] Comment on above: Criteria not met, HP V Genotype not performed.Performed at: - [facility] [id number] Director: Mariaelena Swenson MD, Phone: [phone] at: = - [facility] [address] [id number] Director: Mariaelena Swenson MD, Phone: [phone] Detection in cervical specim en of any of human papilloma virus (HPV) 16, 18, 31, 33,Ordered By: Harriett Acevedo on 07-21-2024 HPV 16+18+31+33+35+39+45+51+ 52+56+58+59+66+68 DNA Probe+sig amp Ql (Cvx) Negative Negative [facility] Comment on above: This nucleic acid am plification test detects fourteen high-risk HPV types (16,18,31,33,35,39,45,51,52,56,58,59,66,68)without differentiation. HPV 16+18+31+33+35+39+45+51+ 52+56+58+59+66+68 DNA Probe+sig amp Ql (Cvx)Ordered By: Harriett Acevedo on 07-21-2024 Human Papillomavirus High Risk Negative Negative [facility] Comment on above: This nucleic acid am plification test detects fourteen high-risk HPV types (16,18,31,33,35,39,45,51,52,56,58,59,66,68)without differentiation. Image-guided ThinPrep PapOrd ered By: Harriett Acevedo on 07-21-2024 Pap Smear Note Comment . [facility] Comment on above: This liquid based Th inPrep(R) pap test was screened withthe use of an image guided system. Image-guided liquid-based Pa pOrdered By: Harriett Acevedo on 07-21-2024 Pap Smear Diagnosis Comment High . [facility] Comment on above: EPITHELIAL CELL ABNO RMALITY.ATYPICAL SQUAMOUS CELLS OF UNDETERMINED SIGNIFICANCE (ASC-US). Laboratory - CytologyOrdered By: Harriett Acevedo on 07-21-2024 Plasterer Tender Cyto stain Nom (Cvx/Vag) [ID] Comment . [facility] Comment on above: Willy Craigtec hnologist (ASCP) Pathologist Cyto stain Nom (Cvx/Vag) [ID] Comment . [facility] Comment on above: Beth Johnson MD, Pa thologist Recommended follow-up Cyto stain Nom (Cvx/Vag) Comment High . [facility] Comment on above: Suggest follow up as clinically appropriate. Laboratory - Miscellaneous t estsOrdered By: Harriett Acevedo on 07-21-2024 Service comment (Unsp spec) [Interp] . . [facility] No Panel InformationOrdered By: Harriett Acevedo on 07-21-2024 Pap Smear Specimen Adequacy Comment . [facility] Comment on above: Satisfactory for ariela luation. Endocervical and/or squamous metaplasticcells (endocervical component) are present. Pathology report final diagnosis Narrative Comment . [facility] Comment on above: R87.610 Supervisor Shop Office Visit Reporton 07-21-2024 Supervisor Shop Office Visit Report [facility] [address], [address] [place] [address] OFFICE VISIT Date of Service: 07/21/24 MR#: [id number] Acct: [id number] Name: SHARA MONTES Rep #: [id number] : 1990 Provider: Dr. 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 Date Name GA/Weeks Outcome Route Bth Weight Gen Labor Lgth Anesthesia Del Locatn Provider FOB Unknown 03/20/2019 Fab live - [...] due Other preventative health care screenings: PCP [facility] - does not go routinely [...] acute distress, well developed and well groomed HENTX Head: normal to inspection and normocephalic Ears: [...] normal appearanc (more content not included)... Normal [facility] Pathologist Cyto stain Nom ( Cvx/Vag) [ID]Ordered By: Harriett Acevedo on 07-21-2024 Pap Smear Signed Out By Comment . [facility] Comment on above: Beth Johnson MD, Pa thologist Pathology report final diagn osis NarrativeOrdered By: Harriett Acevedo on 07-21-2024 Pap Smear Comment (2) Comment . [facility] Comment on above: R87.610 Recommended follow-up Cyto s tain Nom (Cvx/Vag)Ordered By: Harriett Acevedo on 07-21-2024 Pap Smear Recommendation Comment High . [facility] Comment on above: Suggest follow up as clinically appropriate. Service comment (Unsp spec) [Interp]Ordered By: Harriett Acevedo on 07-21-2024 Pap Smear Comment (3) . . [facility] Auto Diffon 02-10-2019 Basophils (Bld) [#/Vol] 0.0 E3/mcL Normal 0.0-0.2 [facility] Comment on above: Order Comment: Order Added by Discern Expert. Performed By: #### 2 [id number] #### [facility] [place] [address] Basophils/100 WBC (Bld) 0.6 % Normal 0.0-2.0 [facility] Comment on above: Order Comment: Order Added by Discern Expert. Performed By: #### 2 873153 #### [facility] Rem[facility]emo [facility] [place] [address] Eos Absolute 0.1 E3/mcL Normal 0.0-0.7 [facility] Comment on above: Order Comment: Order Added by Discern Expert. Performed By: #### 2 788817 #### [facility] Rem[facility]emo [facility] [place] [address] Eosinophils/100 WBC (Bld) 1.1 % Normal 0.0-11.0 [facility] Comment on above: Order Comment: Order Added by Discern Expert. Performed By: #### 2 029046 #### [facility] Rem[facility]emo [address] [place] [address] Lymphocytes (Bld) [#/Vol] 1.3 E3/mcL Normal 1.2-3.4 [facility] Comment on above: Order Comment: Order Added by Discern Expert. Performed By: #### 2 118763 #### [facility] Rem[facility]emo [address] [place] [address] Lymphocytes/100 WBC (Bld) 17.2 % Low 20.0-55.0 [facility] Comment on above: Order Comment: Order Added by Discern Expert. Performed By: #### 2 518987 #### [facility] Rem[facility]emo [address] [place] [address] [place] Absolute 0.5 E3/mcL Normal 0.0-0.7 [facility] Comment on above: Order Comment: Order Added by Discern Expert. Performed By: #### 2 140092 #### [facility] [address] [place] [address] Monocytes/100 WBC (Bld) 6.6 % Normal 0.0-10.0 [facility] Comment on above: Order Comment: Order Added by Discern Expert. Performed By: #### 2 806397 #### [facility] [address] [place] [address] Neutro Absolute 5.6 E3/mcL Normal 1.4-6.5 [facility] Comment on above: Order Comment: Order Added by Discern Expert. Performed By: #### 2 237444 #### [facility] Rem[facility] [address] [place] [address] Neutro Auto 74.5 % Normal 37.0-75.0 [facility] Comment on above: Order Comment: Order Added by Discern Expert. Performed By: #### 2 085759 #### [facility] Rem[facility] [address] [place] [address] CBC w/ Auto Diffon 9 Erythrocyte distribution width (RBC) [Ratio] 13.5 % Normal 11.5-14.5 [facility] Comment on above: Performed By: #### 2 789753 #### [facility] HickmanHemo [address] [place] [address] Hematocrit (Bld) [Volume fraction] 36.1 % Normal 36.0-48.0 [facility] Comment on above: Performed By: #### 2 172054 #### [facility]man[facility] [place] [address] Hemoglobin (Bld) [Mass/Vol] 12.6 g/dL Normal 12.0-16.0 [facility] Comment on above: Performed By: #### 2 172150 #### [facility]man[facility] [place] [address] MCH (RBC) [Entitic mass] 32.0 pg High 27.0-31.0 [facility] Comment on above: Performed By: #### 2 681721 #### [facility] HickmanHemo [address] [place] [address] MCHC (RBC) [Mass/Vol] 35.0 g/dL Normal 33.0-37.0 [facility] Comment on above: Performed By: #### 2 938576 #### [facility] HickmanHemo [address] [place] [address] MCV (RBC) [Entitic vol] 91.4 fL Normal 78.0-100.0 [facility] Comment on above: Performed By: #### 2 590516 #### [facility]ickman[facility]emo [facility] [place] [address] Platelet mean volume (Bld) [Entitic vol] 8.3 fL Normal 7.4-11.0 [facility] Comment on above: Performed By: #### 2 784561 #### [facility] HickmanHemo [address] [place] [address] Platelets (Bld) [#/Vol] 140 E3/mcL Normal 130-400 [facility] Comment on above: Performed By: #### 2 640291 #### [facility] [address]ickmanHemo [address] [place] [address] RBC (Bld) [#/Vol] 3.95 E6/mcL Normal 3.90-5.40 [facility] Comment on above: Performed By: #### 2 868119 #### [facility] Rem[facility]emo [facility] [place] [address] WBC (Bld) [#/Vol] 7.5 E3/mcL Normal 3.6-11.0 [facility] Comment on above: Performed By: #### 2 268028 #### [facility] RemHemo [address] [place], [place] [address] CMPon 02-10-2019 Albumin [Mass/Vol] 3.3 g/dL Low 3.4-5.0 [facility] Comment on above: Performed By: #### 2 412483 #### [facility] [employer] [address] [place], [place] [address] Albumin/Globulin [Mass ratio] 1.2 {ratio} Normal 1.1-1.9 [facility] Comment on above: Performed By: #### 2 420381 #### [facility] [employer] [address] [place], [place] [address] Alk Phos 120 Int._Unit/L High 33-110 [facility] Comment on above: Performed By: #### 2 610367 #### [facility] [employer] [address] [place] [address] ALT [Catalytic activity/Vol] 5 Int._Unit/L Low 7-45 [facility] Comment on above: Performed By: #### 2 750853 #### [facility] [employer] [address] [place] [address] Anion gap [Moles/Vol] 12 mmol/L Normal 10-20 [facility] Comment on above: Performed By: #### 2 610720 #### [facility] [employer] [address] [place] [address] AST [Catalytic activity/Vol] 12 Int._Unit/L Normal 9-39 [facility] Comment on above: Performed By: #### 2 856314 #### [facility] [employer] [address] [place] [address] Bili Total 0.58 mg/dL Normal 0.00-1.20 [facility] Comment on above: Performed By: #### 2 629068 #### [facility] [employer] [address] [place] [address] Calcium [Mass/Vol] 8.3 mg/dL Low 8.6-10.3 [facility] Comment on above: Performed By: #### 2 482489 #### [facility] [employer] [address] [place] [address] Chloride [Moles/Vol] 106 mmol/L Normal 98-107 [facility] Comment on above: Performed By: #### 2 065239 #### [facility] [employer] [address] [place] [address] CO2 [Moles/Vol] 22.0 mmol/L Normal 21.0-32.0 [facility] Comment on above: Performed By: #### 2 208845 #### [facility] [address] [place] [address] Creatinine [Mass/Vol] 0.5 mg/dL Normal 0.5-1.1 [facility] Comment on above: Performed By: #### 2 918883 #### [facility] [employer] [address] [place] [address] Globulin (S) [Mass/Vol] 3.0 g/dL Normal 2.0-4.0 [facility] Comment on above: Performed By: #### 2 524789 #### [facility] [employer] [address] [place] [address]47 Glucose [Mass/Vol] 86 mg/dL Normal 70-99 [facility] Comment on above: Performed By: #### 2 884645 #### [facility] [employer] [address] [place] [address] Potassium [Moles/Vol] 3.4 mmol/L Low 3.5-5.3 [facility] Comment on above: Performed By: #### 2 329265 #### [facility] [employer] [address] [place] [address] Protein [Mass/Vol] 6.1 g/dL Low 6.4-8.2 [facility] Comment on above: Performed By: #### 2 281603 #### [facility] [employer] [address] [place] [address] Sodium [Moles/Vol] 136 mmol/L Normal 136-145 [facility] Comment on above: Performed By: #### 2 047209 #### [facility] [employer] [address] [place] [address] Urea nitrogen [Mass/Vol] 5 mg/dL Low 6-23 [facility] Comment on above: Performed By: #### 2 053102 #### [facility] [employer] [address] [place] [address] Urea nitrogen/Creatinine [Mass ratio] 10.0 ratio Normal 5.4-30.0 [facility] Comment on above: Performed By: #### 2 580009 #### [facility] [employer] [address] [place] [address] UA Completeon 02-10-2019 Color (U) Yellow Normal Yellow [facility] Comment on above: Performed By: #### 8 [id number] #### [facility] Urinalysis Automated Subsection [address] [place] [address] Glucose (U) [Mass/Vol] Negative Normal Negative [facility] Comment on above: Performed By: #### 8 [id number] #### [facility] Urinalysis Automated Subsection [address] [place] [address] Ketones Ql (U) Trace Normal [facility] Comment on above: Performed By: #### 8 [id number] #### [facility] Urinalysis Automated Subsection [address] [place] [address] RBC (U) [#/Vol] 0-3 Normal 0-3 [facility] Comment on above: Performed By: #### 8 [id number] #### [facility] Urinalysis Automated Subsection [address] [place] [address] UA Blood Negative Normal Negative [facility] Comment on above: Performed By: #### 8 [id number] #### [facility] Urinalysis Automated Subsection [address] [place] [address] UA Clarity SltCloudy Abnormal Clear [facility] Comment on above: Performed By: #### 8 [id number] #### [facility] Urinalysis Automated Subsection [facility] [place] [address] UA Leuk Est Negative Normal Negative [facility] Comment on above: Performed By: #### 8 [id number] #### [facility] Urinalysis Automated Subsection [address] [place] [id number] UA Nitrite Negative Normal Negative [facility] Comment on above: Performed By: #### [id number] #### GARRET Urinalysis Automated Subsection [address] [place] [address] UA pH 7.0 Normal 4.6-8.0 [facility] Comment on above: Performed By: #### [id number] #### GARRET Urinalysis Automated Subsection [address] [place] [address] UA Protein Negative Normal Negative [facility] Comment on above: Performed By: #### 8 [id number] #### GARRET Urinalysis Automated Subsection [address] [place] [address] UA Spec Grav 1.010 Normal 1.003-1.030 [facility] Comment on above: Performed By: #### 8 [id number] #### GARRET Urinalysis Automated Subsection [address] [place] [address] UA Squam Epithelial 5-10 Abnormal 0-5 [facility] Comment on above: Performed By: #### 8 [id number] #### GARRET Urinalysis Automated Subsection [address] [place] [address] UA Urobilinogen 4.0 mg/dL Abnormal [facility] Comment on above: Result Comment: Due to a manufacturing issue, low positive urobilinogen results may be fasely positive. Correlate with urine bilirubin and additional clinical/laboratory findings to assess the risk of hemolytic anemia or liver disease. If clinically indicated, repeat testing with an alternate method is available by contacting the laboratory within 24 hours. Performed By: #### 8 [id number] #### GARRET Urinalysis Automated Subsection [address] [place], [place] [id number] UA WBC 0-5 Normal 0-5 [facility] Comment on above: Performed By: #### 8 [id number] #### GARRET Urinalysis Automated Subsection [address] [place] [address] Urobilinogen Qn (U) Negative Normal Negative [facility] Comment on above: Performed By: #### [id number] #### GARRET Urinalysis Automated Subsection [address] [place] [address] eGFRon 02-10-2019 GFR/1.73 sq M predicted among non-blacks MDRD (S/P/Bld) [Vol rate/Area] mL/min/{1.73_m2} Normal [facility] Comment on above: Order Comment: Order added by Discern Expert. Performed By: #### 1 [id number] #### GARRET [facility] [address] [place] [address] Vital Signs Date Time Vital Sign Value Performing Clinician Tam waller 02-25-2025 09:49-0400 Body height 162.[address] Harriett Acevedo MD Work Phone: [facility] 02-25-2025 09:49-0400 Body mass index (BMI) [Ratio] 32.5 kg/m2 Dr. Harriett Acevedo MD Work Phone: [facility] 02-25-2025 09:49-0400 Body weight 85.[address] Harriett Acevedo MD Work Phone: [facility] 02-25-2025 09:49-0400 Diastolic blood pressure 75 mm[Hg] Dr. Harriett Acevedo MD Work Phone: [facility] 02-25-2025 09:49-0400 Systolic blood pressure 118 mm[Hg] Dr. Harriett Acevedo MD Work Phone: [facility] 01-27-2025 14:11-0400 Body height 162.[address] Harriett Acevedo MD Work Phone: [facility] 01-27-2025 14:11-0400 Body mass index (BMI) [Ratio] 32.1 kg/m2 Dr. Harriett Acevedo MD Work Phone: [facility] 01-27-2025 14:11-0400 Body weight 85.[address] Harriett Acevedo MD Work Phone: [facility] 01-27-2025 14:11-0400 Diastolic blood pressure 70 mm[Hg] Dr. Harriett Acevedo MD Work Phone: [facility] 01-27-2025 14:11-0400 Systolic blood pressure 108 mm[Hg] Dr. Harriett Acevedo MD Work Phone: 8(181)246-267424 [place] [address] 12-30-2024 10:130400 Body height 162.[address] Harriett Acevedo MD Work Phone: 4(160)885-112724 [place] [address] 12-30-2024 10:13-0400 Body mass index (BMI) [Ratio] 31.4 kg/m2 Dr. Harriett Acevedo MD Work Phone: 5(195)912-443524 [place] [address] 12-30-2024 10:130400 Body weight [address] Harriett Acevedo MD Work Phone: 0(517)427-098924 [place] [address] 12-30-2024 10:13-0400 Diastolic blood pressure 66 mm[Hg] Dr. Harriett Acevedo MD Work Phone: 5(631)171-633724 [place] [address] 12-30-2024 10:130400 Systolic blood pressure 98 mm[Hg] Dr. Harriett Acevedo MD Work Phone: 1(519)656-95[address] [place] [address] 12-03-2024 09:230400 Body height 162.[address] Harriett Acevedo MD Work Phone: 8(583)766-672024 [place] [address] 12-03-2024 09:21-0400 Body mass index (BMI) [Ratio] 30.2 kg/m2 Dr. Harriett Acevedo MD Work Phone: 6(041)374-775824 [place] [address] 12-03-2024 09:21-0400 Body weight 79.[address] Harriett Acevedo MD Work Phone: 7(632)403-536624 [place] [address] 12-03-2024 09:21-0400 Diastolic blood pressure 77 mm[Hg] Dr. Harriett Acevedo MD Work Phone: 0(895)083-796624 [place] [address] 12-03-2024 09:21-0400 Systolic blood pressure 116 mm[Hg] Dr. aHrriett Acevedo MD Work Phone: 1(502)230-094124 [place] [address] 11-25-2024 13:01-0400 Body height 162.56 cm Clara Araiza RN [facility] 11-25-2024 13:01-0400 Body mass index (BMI) [Ratio] 30.5 kg/m2 Clara Araiza RN [facility] 11-25-2024 13:01-0400 Body weight 80.73 kg Clara Araiza RN [facility] 11-25-2024 13:01-0400 Diastolic blood pressure 69 mm[Hg] Clara Araiza RN [facility] 11-25-2024 13:01-0400 Systolic blood pressure 106 mm[Hg] Clara Araiza RN [facility] 11-12-2024 10:39-0400 Body height 162.[address] Harriett Acevedo MD Work Phone: 9(917)784-57[address] [place] [address] 11-12-2024 10:39-0400 Body mass index (BMI) [Ratio] 30.2 kg/m2 Dr. Harriett Acevedo MD Work Phone: 9(667)120-184024 [place] [address] 11-12-2024 10:39-0400 Body weight 79.[address] Harriett Acevedo MD Work Phone: 7(964)139-688424 [place] [address] 11-12-2024 10:39-0400 Diastolic blood pressure 76 mm[Hg] Dr. Harriett Acevedo MD Work Phone: 8(955)552-563924 [place] [address] 11-12-2024 10:39-0400 Systolic blood pressure 115 mm[Hg] Dr. Harriett Acevedo MD Work Phone: 4(397)980-069224 [place] [address] 07-21-2024 11:02-0400 Body height 162.[address] Harriett Acevedo MD Work Phone: 5(840)514-433524 [place] [address] 07-21-2024 11:02-0400 Body mass index (BMI) [Ratio] 31.4 kg/m2 Dr. Harriett Acevedo MD Work Phone: 9(032)569-381524 [place] [address] 07-21-2024 11:02-0400 Body weight [address] Harriett Acevedo MD Work Phone: 1(828)112-026824 [place] [address] 07-21-2024 11:02-0400 Diastolic blood pressure 81 mm[Hg] Dr. Harriett Acevedo MD Work Phone: [facility] 07-21-2024 11:02-0400 Systolic blood pressure 120 mm[Hg] Dr. Harriett Acevedo MD Work Phone: [facility] Encounters Encounter Date Encounter Type Care Provider Facility Start: 03-16-2025 End: 03-16-2025 ambulatory Harriett Acevedo Facility:[facility] Start: 02-25-2025 End: 02-25-[address] Harriett Acevedo MD -[facility] Work Phone: Start: 02-25-2025 End: 02-25-[address] Harriett Acevedo MD Work Phone: -[facility] Start: 02-25-2025 End: 02-25-2025 ambulatory Harriett Acevedo Facility:[facility] Start: 01-27-2025 End: 01-27-2025 Patient encounter procedure Coby Wong CNM -[facility] Work Phone: Start: 01-27-2025 End: 01-27-[address] Harriett Acevedo MD Work Phone: -[facility] Start: 12-30-2024 End: 12-30-[address] Harriett Acevedo MD Work Phone: -[facility] Start: 12-30-2024 End: 12-30-[address] Harriett Acevedo MD -[facility] Work Phone: Start: 12-30-2024 End: 12-30-[address] Harriett Acevedo MD Work Phone: -[facility] Start: 12-30-2024 End: 12-30-[address] Toma Gautam DO -[facility] Work Phone: Start: 12-30-2024 End: 12-30-2024 ambulatory Harriett Acevedo Facility:[facility] Start: 12-03-2024 End: 12-03-[address] Toma Gautam DO -[facility] Work Phone: Start: 12-03-2024 End: 12-03-[address] Harriett Acevedo MD Work Phone: -[facility] Start: 12-03-2024 End: 12-03-[address] Harriett Acevedo MD Work Phone: -[facility] Start: 12-03-2024 End: 12-03-[address] Harriett Acevedo MD -[facility] Work Phone: Start: 12-03-2024 End: 12-03-2024 ambulatory Harriett Acevedo Facility:[facility] Start: 11-25-2024 End: 11-25-[address] Toma Gautam DO -[facility] Work Phone: Start: 11-25-2024 End: 11-25-2024 ambulatory Toma Gautam -[facility] Start: 11-12-2024 End: 11-12-[address] Harriett Acevedo MD -[facility] Work Phone: Start: 11-12-2024 End: 11-12-[address] Harriett Acevedo MD Work Phone: -[facility] Start: 11-11-2024 Non-patient / Non-visit Clara Araiza RN -[facility] Work Phone: Start: 11-11-2024 End: 11-12-2024 ambulatory Yadi Rojas NP Facility:[facility] Start: 07-21-2024 End: 07-21-[address] Harriett Acevedo MD Work Phone: [facility] Work Phone: Start: 07-21-2024 End: 07-21-[address] Harriett Acevedo MD -Laboratory, Specimen Work Phone: Start: 07-21-2024 End: 07-21-[address] Harriett Acevedo MD -[facility] Work Phone: Start: 07-21-2024 End: 07-21-[address] Harriett Acevedo MD [facility] Start: 07-21-2024 End: 07-21-2024 ambulatory Harriett Acevedo Facility:[facility] Start: 07-21-2024 End: 07-21-2024 ambulatory Harriett Acevedo Facility:[facility] Procedures Date Procedure Procedure Detail Performing Clinician Start: 02-25-2025 Serologic test for syphilis Dr. Harriett Acevedo MD Work Phone: Start: 12-30-2024 Ultrasonography in f irst trimester Dr. Harriett Acevedo MD Work Phone: Start: 12-03-[address] ic ultrasonography Dr. [...] HCV Quant by PCR testing - HCVPCR #[id number] Non Reactive: < 0.8 Equivocal: >/= 0.8 [...] Treatment Date Care Activity Detail Author Start: 05-16-2025 ambulatory Ambulatory Facility:[facility] Start: 12-03-2024 [facility] Start: 12-03-2024 Transvaginal obstetric ultrasonography Transvaginal w/Preg US [facility] Start: 11-12-2024 CBC W Auto Differential panel - Blood [facility] Start: 11-12-2024 Hemoglobin A1c/Hemoglobin.total in Blood [facility] Start: 11-12-2024 Hepatitis C antibody measurement [facility] Start: 11-12-2024 Rubella IgG measurement [facility] Start: 11-12-2024 Serologic test for syphilis [facility] Start: 11-12-2024 [facility] CBC W Auto Different ial panel - Blood [facility] Chlamydia deoxyribon ucleic acid detection [facility] Erythrocyte mean corpuscular volume determination [facility] Hematocrit [Volume Fraction] of Blood [facility] Hemoglobin [Mass/vol ume] in Blood [facility] Hepatitis B virus he rface Ag [Presence] in Serum [facility] Leukocytes [#/volume ] in Blood [facility] Mean corpuscular hem oglobin concentration determination [facility] Mean corpuscular hem oglobin determination [facility] Measurement of gluco se 2 hours after glucose challenge for glucose tolerance test [facility] Neutrophil count [facility] Neutrophil percent differential count [facility] Platelets [#/volume] in Blood [facility] Red blood cell count [facility] Red cell distributio n width determination [facility] Serologic test for syphilis [facility] Ultrasonography in f irst trimester [facility] Payers Date Payer Category Payer Self-pay 0 2024 Unknown 2024 Self-pay * 2024 Self-pay Unknown [employer] . [id number] Unknown 11 Unknown [id number] 2.16.8 [id number] Unknown [id number] 2.16.8 [id number] Unknown [id number] 2.16.8 [id number] Unknown [id number] 2.16.8 [id number] Unknown [id number] 2.16.8 40.1.666316.3.579.2.462 Unknown [id number] 2.16.8 40.1.841131.3.579.2.462 Unknown [id number] 2.16.8 40.1.810232.3.579.2.462 Unknown [id number] 2.16.8 40.1.388352.3.579.2.462 Unknown [id number] 2.16.8 40.1.687863.3.579.2.462 Unknown [id number] 2.16.8 40.1.453548.3.579.2.462 Unknown [id number] 2.16.8 40.1.821081.3.579.2.462 Unknown [id number] 2.16.8 40.1.608509.3.579.2.462 Unknown [id number] 2.16.8 40.1.890573.3.579.2.462 Unknown [id number] 2.16.8 40.1.057707.3.579.2.462 Unknown [id number] 2.16.8 40.1.922332.3.579.2.462 Social History Date Type Detail Facility Start: 07-21-2024 End: 11-11-2024 Tobacco smoking status NHIS Never smoked tobacco (finding) [facility] Start: 07-31-2024 Sex Female (finding) [facility] Start: 1990 Sex Assigned At Female [facility] Sex Female [facility] Clinical Notes 07-21-2024 to 02-25-2025 Note Date & Type Note Facility 02-25-2025 Progress note [facility] 01-27-2025 Progress note [facility] 01-27-2025 Progress note Note Date/Time January 27, 2025 2:29pm [facility] [address] [place] [address], [address] [place] [address] OFFICE VISIT Date of Service: 01/27/25 MR#: [id number] Acct: [id number] Name: SHARA MONTES Rep #: [id number] : 1990 Provider: JESUS Wong Age/Sex: 34/F Location: [facility] Status: Signed Intake Vital Signs 12/30/24 10:13 01/27/25 14:11 Height 5 ft 4 in 5 ft 4 in Weight: 187 lb 8 oz BMI 32.1 BP 108/70 Intake Visit Reasons: 24wk ob Chief Complaint: 24wk ob Inspector Set Up And Lay Out Required: No Is patient in pain?: No Allergies No Known Allergies Allergy (Verified 01/27/25 14:08) Medications ?Medication ?Instructions ?Recorded ?Confirmed ?Type docosahexaenoic acid 200 mg mg PO 11/11/24 01/27/25 Hi story capsule ( DHA) Last Menstrual Period: 08/09/24 : No PFSH PFSH Medical History Seasonal allergies Family History Grandmother Colon cancer, Onset Age: 81 Hypertension Sister Hypertension, Onset Age: 40 Grandfather CVA (cerebral vascular accident), Onset Age: 75 Social History adopted: No household members: spouse and children number of children: 5 current occupation: [employer] current occupational exposures/hazards: No pets and animals: [...] physical activity do you participate in: none kiana/quaker: Druze seatbelt use: always do you feel safe at home: Yes additional social history: : Liliane Pritchard History 8 Elective abortions Hx Para 5 Spontaneous abortions 2 Hx # Term Pregnancies 5 Ectopic pregnancies Hx # Pregnancies Multiple births # of living children 5 Past Pregnancies Del. Date Name GA/Weeks Outcome Route Bth Weight Infant [facility] 12/26/10 Belia 41 live - full term 7lbs 5oz Female none [facility] Helio 07/15/12 Percival 40 live - full term 7lbs 12oz Male no ne Home Helio 05/31/14 Sinan 40 live - full term 7lbs 8oz Male no ne Home Helio 05/05/16 [place] 40 live - full term 7lbs 2oz Male no ne Home Helio 06/14/17 7 spontaneous 04/13/18 10 spontaneous 03/20/19 Fab 40 live - full term 7lbs 13oz Male none [facility] Delivery Date: 03/20/19 Last Updated by: Clara Araiza RN "Vein problems", World History Teacher KRYSTYNA for delivery HPI 24wk ob Details: SHARA MONTES is a 34 year old who presents for routine OB visit. OB Visit HORTENCIA Calculator Estimated Delivery Date Method Current WG Current Estimate 05/16/25 LMP (Certain) 24w 3d Initial Weight: Not Recorded Date -?-?-?-?-?-?-?-?-?-?-?-?- EGA Weight BP Urine Prot -?-?-?-?-?-?-?-?-?-?-?-?- Glucose FHR FuHt Pres Dilation -?--?-?-?-?-?-?-?-?-?-?-?- Effaced St Visit Note 11/12/24 -?-?-?-?-?-?-?-?-?-?-?-?- 13w [...] length ultrasound prior toher 20 week scan. 12/30/24 -?-?-?-?-?-?-?-?-?-?-?-?- 20w 3d 183 lb 98/66 Negative -?-?-?-?-?-?-?-?-?-?-?-?- Negative 145 -?-?-?-?-?-?-?-?-?-?-?-?- JV- no further mamta alexis x 2 weeks now. has anatomy scan today at 12:30. has a lot of dilated varicosities and one that feels like a tiny clot at her nieto. If no problems on us today we will start baby asa. 01/27/25 -?-?-?-?-?--?-?-?-?-?-?-?- 24w 3d 187 lb 8 oz 108/70 Nega tive -?-?-?-?-?-?-?-?-?-?-?-?- Negative 150 24 -?-?-?-?-?-?-?-?-?-?-?-?- KW- no vb/lof/ct x. good fm. placenta no longer low lying. glucose discussed. ACOG First Trimester First Trimester: Desire for , Alcohol, Tobacco Cessation, Illicit/Recreational Drug/Substance Use, Intimate Partner Violence, Barriers to care, Unstable Housing, Communication Barriers, Environmental/Work Hazards, Anticipated Course of Care, Toxoplasmosis Precations, Use of Any medications, Sexual activity, Exercise, Dental Care, Sauna/Hot tub use, Seat Belt use, Childbirth classes/Hospital facilities, Travel, Indications for Ultrasound and Screening for Aneuploidy; Discussed ROS Const Reports system reviewed and no additional complaints, except as documented Eyes Reports system reviewed and no additional complaints, except as documented ENT Reports system reviewed and no additional complaints, except as documented Card Reports system reviewed and no additional complaints, except as documented Resp Reports system reviewed and no additional complaints, except as documented GI Reports system reviewed and no additional complaints, except as documented, Denies nausea and Denies vomiting Reports system reviewed and no additional complaints, [...] and no additional complaints, except as documented Mario Alberto/Lymph Reports system reviewed and no additional complaints, except as documented Aller/Immun Reports system reviewed and no additional complaints, except as documented Exam Const General: cooperative, healthy appearing and no acute distress Orientation: alert, awake and oriented x3 Neck Neck: normal visual inspection and full ROM Resp Effort & Inspection: normal respiratory effort, able to speak in complete sentences and symmetric chest movement GI Inspection: normal to inspection Palpation: soft and other Other: gravid Skin General: no rashes or lesions noted Neuro General: patient alert, patient awake and patient oriented x3 Cognition: normal cognition Speech: speech normal Gait: normal gait Motor: muscle tone normal throughout Extrem General: normal to inspection and full ROM Psych Appearance: grossly normal Mental Status: mental status grossly normal Mood: congruent mood Affect: normal affect Speech and Movement: speech and movement normal Attitude: cooperative Thought Process: normal Thought Content: normal Judgment: judgment good Results POC Urinalysis 2 Dip (Clinic) Office Urine Glucose Negative Last Edit by Lily Curry on 01/27/25 14:17 Office Urine Protein Negative Last Edit by Lily Curry on 01/27/25 14:17 Coding Level of Care Code OB Routine Diagnoses Bleeding in early O20.9 Family history of genetic disease carrier Z84.81 Rh negative status during O26.899; Z67.91 AMA (advanced maternal age) multigravida 35+ O09.529 History of miscarriage, currently O09.299 Obesity affecting O99.210 Supervision of high-risk O09.90 24 weeks gestation of Z3A.24 Weeks of gestation: 24 weeks ASCUS of cervix with negative high risk HPV R87.610 Assessment and Plan Assessment and Plan (1) Bleeding in early : Status: Acute (2) Family history of genetic disease carrier: Status: Acute Comment: Sister & brother in law carriers for Cockayne Syndrome and have children dx withor passed from (3) Rh negative status during : Status: Acute Comment: A-, Rhogam as needed and PRN (4) AMA (advanced maternal age) multigravida 35+: Status: Acute Comment: genetic counseling- declined testing. (5) History of miscarriage, currently : Status: Acute Comment: x2; 2018 (6) Obesity affecting : Status: Acute Comment: BMI 30.9; HgBA1C ordered w/NOB (7) Supervision of high-risk : Status: Acute Comment: , HORTENCIA 05/16, PC: Kirk Celaya Steven, Marline & Fab, : Helio (8) : Status: Acute Qualifiers: Weeks of gestation: 24 weeks Qualified Code(s): Z3A.24 - 24 weeks gestation of Comment: Discussed genetic/carrier testing - declined (9) ASCUS of cervix with negative high risk HPV: Status: Acute Comment: pap in 2019 negative. pap 2024 ascus w/neg hpv=repeat pap 2027 Orders: Orders POC Urinalysis 2 Dip (Clinic) Today CBC W/Diff, Automated Today O09.90 - Supervision of high risk , unspecified, unspecified trimester, O26.899 - Other specified related conditions, unspecified trimester, Z67.91 - Unspecified blood type, Rh negative Type & Screen Today O26.899 - Other specified related conditions, unspecified trimester, Z67.91 - Unspecified blood type, Rh negative Glucose Challenge Gest 1H 50g Today Z13.1 - Encounter for screening for diabetes mellitus HIV Today O09.90 - Supervision of high risk , unspecified, unspecifiedtrimester Syphilis Antibodies Today O09.90 - Supervision of high risk , unspecified, unspecified trimester Plan Details Additional Comments: ACOG trimester education reviewed and updated. see problem list details for updated plan management information and see below for orders placed at this visit. GA appropriate handout given. 01/27/25 1729 <Electronically signed by Coby zabala CNM> Date _ Coby Wong CNM Cosigner Signature: Date (if applicable) CC: ~ [facility] Work Phone: 1(422) 494-921208-19-2025 Radiology Diagnostic study note [facility] Services [address] [place], [place] [id number] OB Anatomy w/ Transvaginal MR#: [id number] Acct: [id number] Name: SHARA MONTES Rep #: [id number] : 1990 F 34 From: Ronnell Ragsdale MD PCP: Care Physician,No Primary Status: REG CLI Study:OB Anatomy w/ Transvaginal Date of Exam : 12/30/24 Exam# [id number] Ordering Dr: Harriett Kenyon MD PROCEDURE: OB ANATOMY W/ TRANSVAGINAL 12/30/2024 REASON [...] mean gestational age of 19 weeks and 5days. Reading Location: [id number] CC: Dr. Harriett Acevedo MD; No Primary Care Physician ~ News Reel Cameraman: Signed [facility]08-19-2025 Progress [facility] [address], [address] [place] [address] OFFICE VISIT Date of Service: 12/30/24 MR#: [id number] Acct: [id number] Name: SHARA MONTES Rep #: [id number] : 1990 Provider: Dr. Chiara Gautam DO Age/Sex: 34/F Location: [facility] Status: Signed Intake Vital Signs 11/12/24 10:39 12/03/24 09:23 12/30/24 10:13 12/30/24 10:13 Height 5 ft 4 in 5 ft 4 in 5 ft 4 in 5 ft 4 in Weight: 183 lb BMI 31.4 BP 98/66 Intake Visit Reasons: 20wk ob *ok per SM Inspector Set Up And Lay Out Required: No Is patient in pain?: No [...] children number of children: 5 current occupation: [employer] current occupational exposures/hazards: No pets and animals: [...] physical activity do you participate in: none kiana/quaker: Druze seatbelt use: always do you feel safe [...] - full term 7lbs 5oz Female none [facility] Helio 07/15/12 Kirk 40 live - full term 7lbs 12oz Male no ne Home Helio 05/31/14 Siann 40 live - full term 7lbs 8oz Male no ne Home [place] 05/05/16 Pratima 40 live - full term 7lbs 2oz Male no ne Home [place] 06/14/17 7 spontaneous 04/13/18 10 spontaneous 03/20/19 Fab 40 live - full term 7lbs 13oz Male none [facility] [place] Delivery Date: 03/20/19 Last Updated by: Clara Araiza, RN "Vein problems", World History Teacher KRYSTYNA for delivery HPI 20wk ob *ok [...] 4d 176 lb 115/76 -?-?-?-?-?-?-?-?-?-?-?-?- 154 -?-?-?-?-?-?-?-?-?-?-?-?- - CRL 6.8cm co ns with LMP 11/25/24 [...] -?-?-?-?-?-?-?-?-?-?-?-?- Negative 145 -?-?-?-?-?-?-?-?-?-?-?-?- JV- no further b leeding x 2 weeks now. has anatomy scan [...] Urinalysis 2 Dip (Clinic) Today 12/30/24 1102 e Maggi DO> Date _ Toma Thorpe Signature: Date (if applicable) CC: ~ [facility]07-23-2025 Radiology Diagnostic study note [facility] Imaging Services [address] [place] [address] Transvaginal w/Preg US MR#: [id number] Acct: [id number] Name: SHARA MONTES W Rep #: [id number] : 1990 F 34 From: Davida Vasquez MD PCP: Care Physician,No Primary Status: REG CLI Study:Transvaginal w/Preg US Date of Exam: 12/03/24 Exam# [id number] Ordering Dr: Harriett Kenyon MD PROCEDURE: TRANSVAGINAL W/PREG US 12/03/2024 REASON FOR EXAM: CERVICAL LENGTH TECHNIQUE: TRANSVAGINAL W/PREG US COMPARISON: None FINDINGS There is a live intrauterine . Position is cephalic. heart motion = 152 beats per minute. Cervix length = 4.0 cm and is closed. The cervical os is 1.5 cm from the marginof the placenta. Theplacenta is posterior, low lying, grade 1. An [...] Acevedo MD; No Primary Care Physician ~ News Reel Cameraman: Signed [facility]07-15-2025 Progress [facility] [address], [address] [place] [address] OFFICE VISIT Date of Service: 11/25/24 MR#: [id number] Acct: [id number] Name: SHARA MONTES Rep #: [id number] : 1990 Provider: Dr. Chiara Gautam DO Age/Sex: 34/F [place] [facility] Status: Signed Intake Vital Signs 11/12/24 10:39 11/25/24 13:01 Height 5 ft 4 in 5 ft 4 in Weight: 178 lb BMI 30.5 BP 106/69 Intake Visit Reasons: 15w3d, spotting since Sunday Chief Complaint: 15wk and spotting Inspector Set Up And Lay Out Required: No Is patient in pain?: No [...] children number of children: 5 current occupation: [employer] current occupational exposures/hazards: No pets and animals: [...] physical activity do you participate in: none kiana/quaker: Druze seatbelt use: always do you feel safe [...] - full term 7lbs 5oz Female none [facility] Helio 07/15/12 Percival 40 live - full term 7lbs 12oz Male no ne Home [place] 05/31/14 Sinan 40 live - full term 7lbs 8oz Male no ne Home [place] 05/05/16 Pratima 40 live - full term 7lbs 2oz Male no ne Home [place] 06/14/17 7 spontaneous 04/13/18 10 spontaneous 03/20/19 Fab 40 live - full term 7lbs 13oz Male none [facility] [place] Delivery Date: 03/20/19 Last Updated by: Clara Araiza, RN "Vein problems", World History Teacher KRYSTYNA for delivery HPI 15w3d, spotting since [...] 4d 176 lb 115/76 -?-?-?-?-?-?-?-?-?-?-?-?- 154 -?-?-?-?-?-?-?-?-?-?-?-?- - CRL 6.8cm co ns with LMP 11/25/24 [...] Urinalysis 2 Dip (Clinic) Today 11/25/24 1328 e Velde DO> Date _ Toma Thorpe Signature: Date (if applicable) CC: ~ [facility]07-02-2025 Evaluation note* Diagnosis Onset Date Resolution Status [...] of high-risk acute November 25, 2024 12:52pm [facility] Work Phone: 1(900) 585-743807-02-2025 Evaluation note* Diagnosis Onset Date Resolution Status [...] of high-risk acute December 03, 2024 9:07am [facility] Work Phone: 1(260) 649-489507-02-2025 Evaluation note* Diagnosis Onset Date Resolution Status [...] Supervision of high-risk acute December 30 9:48am [facility] Work Phone: 1(429) 320-378507-02-2025 Evaluation note* Diagnosis Onset Date Resolution Status [...] of miscarriage, currently acute December 03 9:07am Obesity affecting acute December 03, 2024 9:07am acute December 03 9:07am Rh negative status during acute December 03, 2024 9:07am Supervision of high-risk acute December 03, 2024 9:07am Low lying placenta with hemorrhage, second trimester resolved Nov 9:07am AMA (advanced maternal age) multigravida 35+ acute December 30 9:48am ASCUS of cervix with negativ e high risk HPV acute December 30 9:48am Bleeding in early acute December 30, 2024 9:48am Family history of genetic disease carrier acute December 30 9:48am History of miscarriage, currently acute December 30, 2024 9:48am Obesity affecting acute December 30, 2024 9:48am acute December 30, 2 025 9:48am Rh negative status during acute December 30 9:48am Supervision of high-risk acute December 30 9:48am Low lying placenta with hemorrhage, second trimester resolved Dec 9:48am AMA (advanced maternal age) multigravida 35+ acute January 27, 2025 2:07pm ASCUS of cervix with negativ e high risk HPV acute January 27, 2025 2:07pm Bleeding in early acute January 27, 2025 2:07pm Family history of genetic disease carrier acute January 27, 2025 2:07pm History of miscarriage, currently acute January 2:07pm Obesity affecting acute January 27, 2025 2:07pm acute January 2:07pm Rh negative status during acute January 27, 2025 2:07pm Supervision of high-risk acute January 27, 2025 2:07pm [facility] Work Phone: 1(720) 988-510207-02-2025 Evaluation note* Diagnosis Onset Date Resolution Status [...] risk HPV acute December 03, 2024 9:07am Family history of genetic disease carrier acute December 03, 2024 9:07am History of miscarriage, currently acute December 03 9:07am Obesity affecting acute December 03, 2024 9:07am acute December 03 9:07am Rh negative status during acute December 03, 2024 9:07am Supervision of high-risk acute December 03, 2024 9:07am Bleeding in early resolved December 03, 2024 9:07am Low lying placenta with hemorrhage, second trimester resolved Nov 9:07am AMA (advanced maternal age) multigravida 35+ acute December 30 9:48am ASCUS of cervix with negativ e high risk HPV acute December 30 9:48am Family history of genetic disease carrier acute December 30 9:48am History of miscarriage, currently acute December 30, 2024 9:48am Obesity affecting acute December 30, 2024 9:48am acute December 30, 2 025 9:48am Rh negative status during acute December 30 9:48am Supervision of high-risk acute December 30 9:48am Bleeding in early resolved December 30, 2024 9:48am Low lying placenta with hemorrhage, second trimester resolved Dec 9:48am AMA (advanced maternal age) multigravida 35+ acute January 27, 2025 2:07pm ASCUS of cervix with negativ e high risk HPV acute January 27, 2025 2:07pm Family history of genetic disease carrier acute January 27, 2025 2:07pm History of miscarriage, currently acute January 2:07pm Obesity affecting acute January 27, 2025 2:07pm acute January 2:07pm Rh negative status during acute January 27, 2025 2:07pm Supervision of high-risk acute January 27, 2025 2:07pm Bleeding in early resolved January 27, 2025 2:07pm AMA (advanced maternal age) multigravida 35+ acute February 25, 2 025 9:22am ASCUS of cervix with negativ e high risk HPV acute February 25 9:22am Family history of genetic disease carrier acute February 25 9:22am History of miscarriage, currently acute February 25, 2025 9:22am Obesity affecting acute February 25, 2025 9:22am acute February 25, 2025 9:22am Rh negative status during acute February 25 9:22am Supervision of high-risk acute February 25 9:22am [facility] Work Phone: 1(180) 733-701707-02-2025 [facility] [address] [place] [address], [address] [place] [address] OFFICE VISIT Date of Service: 11/12/24 MR#: [id number] Acct: [id number] Name: SHARA MONTES Rep #: [id number] : 1990 Provider: Dr. Tan Acevedo MD Age/Sex: 34/F [place] [facility] Status: Signed Intake Vital Signs 07/21/24 11:02 11/12/24 10:39 Height 5 ft 4 in 5 ft 4 in Weight: 176 lb BMI 30.2 BP 115/76 Intake Visit Reasons: *EST* NOB LMP 08/09, HORTENCIA 05/16 Inspector Set Up And Lay Out Required: No Is patient in pain?: No [...] children number of children: 5 current occupation: [employer] current occupational exposures/hazards: No pets and animals: [...] physical activity do you participate in: none kiana/quaker: Druze seatbelt use: always do you feel safe at home: Yes additional social history: : [place]- [place] History 8 Elective abortions Hx Para 5 Spontaneous abortions 2 Hx # Term Pregnancies 5 Ectopic pregnancies Hx # Pregnancies Multiple births # of living children 5 Past Pregnancies Del. Date Name GA/Weeks Outcome Route Bth Weight Infant Gen Labor Lgth Anesthesia Del Locatn Provider FOB 12/26/10 Belia 41 live - full term 7lbs 5oz Female none [facility] [place] 07/15/12 Percival 40 live - full term 7lbs 12oz Male no ne Home [place] 05/31/14 Sinan 40 live - full term 7lbs 8oz Male no ne Home [place] 05/05/16 [place] 40 live - full term 7lbs 2oz Male no ne Home [place] 06/14/17 7 spontaneous 04/13/18 10 spontaneous 03/20/19 Fab 40 live - full term 7lbs 13oz Male none [facility] [place] Delivery Date: 03/20/19 Last Updated by: Clara Araiza RN "Vein problems", World History Teacher KRYSTYNA for delivery HPI *EST* NOB LMP [...] blood transfusions, Pulmonary (e.g.,TB,Asthma), Drug/latex allergies/reactions, Breast, .Net Architect surgery, Operations/hospitalizations, Anesthetic complications, Uterine anomaly/franklin, Infertility, [...] comfortable and no acute distress Orientation: alert [facility] Head: normal to inspection, normocephalic and [...] to patient and patient chose: declined 11/12/24 111Jimmie genao MD> Date _ Harriett Acevedo MD Cosign Signature: Date (if applicable) CC: ~ [facility]03-10-2025 NotePap Smear Specimen AdequacyMar2024 5:14pmComment.Satisfactory for evaluation. Endocervical and/or squamous metaplasticcells (endocervical component)are present.[facility] INTER[facility]ACED A#[id number] HospitalComment on above:Satisfactory for evaluation. Endocervical and/or squamous metaplasticcells (endocervical component)are present.07-21-2024 Evaluation note* Diagnosis Onset Date Resolution Status Admit Date Encounter for routine gynecological examination noneactive July 21, 2024 10:52am [facility] Work Phone: 1(748) 690-343503-10-2025 Evaluation note* Diagnosis Onset Date Resolution Status [...] high-risk acute November 12, 2024 1 0:36am [facility] Work Phone: Progress note Author Harriett Acevedo [facility] Note Date/Time November 12, 2024 11:12 am [facility] [address] [place] [address], [address] [place] [address] OFFICE VISIT Date of Service: 11/12/24 MR#: [id number] Acct: [id number] Name: SHARA MONTES Rep #: [id number] : 1990 Provider: Dr. Tan Acevedo MD Age/Sex: 34/F Location[place] [facility] Status: Signed Intake Vital Signs 07/21/24 11:02 07/02/25 10:39 Height 5 ft 4 in 5 ft 4 in Weight: 176 lb BMI 30.2 BP 115/76 Intake Visit Reasons: *EST* NOB LMP 08/09, HORTENCIA 05/16 Inspector Set Up And Lay Out Required: No Is patient in pain?: No Feel stressed/tense/nervous/anxious/difficulty sleeping: not at all Allergies No Known Allergies Allergy (Verified 11/12/24 10:41) Medications ?Medication ?Instructions ?Recorded ?Confirmed ?Type docosahexaenoic acid 200 mg mg PO 11/11/24 11/12/24 Hi story capsule ( DHA) Last Menstrual Period: 08/09/24 Zika: Zika virus screening: Negative [facility] Medical History Seasonal allergies Family History Grandmother Colon cancer, Onset Age: 81 Hypertension Sister Hypertension, Onset Age: 40 Grandfather CVA (cerebral vascular accident), Onset Age: 75 Social History adopted: No household members: spouse and children number of children: 5 current occupation: [employer] current occupational exposures/hazards: No pets and animals: [...] physical activity do you participate in: none kiana/quaker: Druze seatbelt use: always do you feel safe [...] - full term 7lbs 5oz Female none [facility] [place] 07/15/12 Percival 40 live - full term 7lbs 12oz Male no ne Home [place] 05/31/14 Sinan 40 live - full term 7lbs 8oz Male no ne Home [place] 05/05/16 Pratima 40 live - full term 7lbs 2oz Male no ne Home [place] 06/14/17 7 spontaneous 04/13/18 10 spontaneous 03/20/19 Fab 40 live - full term 7lbs 13oz Male none [facility] [place] Delivery Date: 03/20/19 Last Updated by: Clara Araiza, RN "Vein problems", World History Teacher KRYSTYNA for delivery HPI *EST* NOB LMP [...] blood transfusions, Pulmonary (e.g.,TB,Asthma), Drug/latex allergies/reactions, Breast, .Net Architect surgery, Operations/hospitalizations, Anesthetic complications, Uterine anomaly/franklin, Infertility, [...] comfortable and no acute distress Orientation: alert [facility] Head: normal to inspection, normocephalic and [...] Cosigner Signature: Date (if applicable) CC: ~ [facility] Work Phone: Progress note Author Toma Tay [facility] Note Date/Time November 25, 2024 1:28 pm [facility] [address], [address] [place] [id number] OFFICE VISIT Date of Service: 11/25/24 MR#: [id number] Acct: [id number] Name: SHARA MONTES Rep #: [id number] : 1990 Provider: Dr. Chiara Gautam, DO Age/Sex: 34/F [place] [facility] Status: Signed Intake Vital Signs 11/12/24 10:39 11/25/24 13:01 Height 5 ft 4 in 5 ft 4 in Weight: 178 lb BMI 30.5 BP 106/69 Intake Visit Reasons: 15w3d, spotting since Sunday Chief Complaint: 15wk and spotting Inspector Set Up And Lay Out Required: No Is patient in pain?: No [...] children number of children: 5 current occupation: [employer] current occupational exposures/hazards: No pets and animals: [...] physical activity do you participate in: none kiana/quaker: Druze seatbelt use: always do you feel safe [...] - full term 7lbs 5oz Female none [facility] Hel[place] 07/15/12 Kirk 40 live - full term 7lbs 12oz Male no ne Home [place] 05/31/14 Sinan 40 live - full term 7lbs 8oz Male no ne Home [place] 05/05/16 [place] 40 live - full term 7lbs 2oz Male no ne Home [place] 06/14/17 7 spontaneous 04/13/18 10 spontaneous 03/20/19 Fab 40 live - full term 7lbs 13oz Male none [facility] [place] Delivery Date: 03/20/19 Last Updated by: Clara Araiza RN "Vein problems", World History Teacher KRYSTYNA for delivery HPI 15w3d, spotting since [...] Lowe DO> Date _ Toma Gautam DO Cosign Signature: Date (if applicable) CC: ~ [facility] Work Phone: Progress note Author Toma Tay [facility] Note Date/Time December 30, 2024 11 :02am [facility] [address] [place] [address], [address] [place] [address] OFFICE VISIT Date of Service: 12/30/24 MR#: [id number] Acct: [id number] Name: SHARA MONTES Rep #: [id number] : 1990 Provider: Dr. Chiara Gautam DO Age/Sex: 34/F Location: [facility] Status: Signed Intake Vital Signs 11/12/24 10:39 12/03/24 09:23 12/30/24 10:13 12/30/24 10:13 Height 5 ft 4 in 5 ft 4 in 5 ft 4 in 5 ft 4 in Weight: 183 lb BMI 31.4 BP 98/66 Intake Visit Reasons: 20wk ob *ok per Inspector Set Up And Lay Out Required: No Is patient in pain?: No [...] children number of children: 5 current occupation: [employer] current occupational exposures/hazards: No pets and animals: [...] physical activity do you participate in: none kiana/quaker: Druze seatbelt use: always do you feel safe [...] - full term 7lbs 5oz Female none [facility] [place] 07/15/12 Percival 40 live - full term 7lbs 12oz Male no ne Home [place] 05/31/14 Sinan 40 live - full term 7lbs 8oz Male no ne Home [place] 05/05/16 Pratima 40 live - full term 7lbs 2oz Male no ne Home [place] 06/14/17 7 spontaneous 04/13/18 10 spontaneous 03/20/19 Fab 40 live - full term 7lbs 13oz Male none [facility] [place] Delivery Date: 03/20/19 Last Updated by: Clara Araiza, RN "Vein problems", World History Teacher KRYSTYNA for delivery HPI 20wk ob *ok [...] 4d 176 lb 115/76 -?-?-?-?-?-?-?-?-?-?-?-?- 154 -?-?-?-?-?-?-?-?-?-?-?-?- - CRL 6.8cm co ns with LMP 11/25/24 -?-?-?-?-?-?-?-?-?-?-?-?- 15w 3d 178 lb 106/69 Negative -?-?-?-?-?-?-?-?-?-?-?-?- Negative 150 -?-?-?-?-?-?-?-?-?-?-?-?- JV- patient is b eikaden seen urgently today for bleeding. She states [...] -?-?-?-?-?-?-?-?-?-?-?-?- Negative 145 -?-?-?-?-?-?-?-?-?-?-?-?- JV- no further b leeding x 2 weeks now. has anatomy scan [...] by Toma Lowe DO> Date _ Toma Camiloignmona Signature: Date (if applicable) CC: ~ [facility] Work Phone: Progress note Author Harriett Acevedo [facility] Note Date/Time February 25, 2025 1 0:18am [facility] [address], [address] [place] [address] OFFICE VISIT Date of Service: 02/25/25 MR#: [id number] Acct: [id number] Name: SHARA MONTES Rep #: [id number] : 1990 Provider: Dr. Tan Acevedo MD Age/Sex: 34/F Location: [facility] Status: Signed Intake Vital Signs 12/30/24 10:13 01/27/25 14:11 02/25/25 09:49 Height 5 ft 4 in 5 ft 4 in 5 ft 4 in Weight: 187 lb 8 oz 189 lb 5 oz BMI 32.1 32.5 BP 108/70 118/75 Intake Visit Reasons: 28wk ob/glucose Inspector Set Up And Lay Out Required: No Is patient in pain?: No Allergies No Known Allergies Allergy (Verified 02/25/25 09:49) Medications ?Medication ?Instructions ?Recorded ?Confirmed ?Type docosahexaenoic acid 200 mg mg PO 11/11/24 02/25/25 Hi story capsule ( DHA) Last Menstrual Period: 08/09/24 Zika: Zika virus screening: Negative : No PFSH PFSH Medical History Seasonal allergies Family History Grandmother Colon cancer, Onset Age: 81 Hypertension Sister Hypertension, Onset Age: 40 Grandfather CVA (cerebral vascular accident), Onset Age: 75 Social History adopted: No household members: spouse and children number of children: 5 current occupation: [employer] current occupational exposures/hazards: No pets and animals: [...] physical activity do you participate in: none kiana/quaker: Druze seatbelt use: always do you feel safe [...] - full term 7lbs 5oz Female none [facility] Helio 07/15/12 Percival 40 live - full term 7lbs 12oz Male no ne Home [place] 05/31/14 Sinan 40 live - full term 7lbs 8oz Male no ne Home [place] 05/05/16 [place] 40 live - full term 7lbs 2oz Male no ne Home [place]io 06/14/17 7 spontaneous 04/13/18 10 spontaneous 03/20/19 Fab 40 live - full term 7lbs 13oz Male none [facility] [place] Delivery Date: 03/20/19 Last Updated by: Clara Araiza RN "Vein problems", World History Teacher KRYSTYNA for delivery HPI 28wk ob/glucose Details: SHARA MONTES is a 34 year old who presents for routine OB visit. OB Visit HORTENCIA Calculator Estimated Delivery Date Method Current WG Current Estimate 05/16/25 LMP (Certain) 28w 4d Expected Delivery Route/Plan Labor Preferences- CB/BF classes: [] labor support person: [] labor intervention preferences: [] pain management options preferred: [] cut cord/dad catch: [] : [] PP control planned: [] discussed possible routes of delivery and associated risks: [] special requests: [] Specific Issue/Plans Covid status: [] Flu vaccine: declined Tdap vaccine: declined Rhogam: given LARC form signed: [] movement and labor precautions reviewed. Problem list reviewed and updated with the most current plan of care details and appropriate orders placed. Relevant counseling for the gestational age provided. Continue routine care and follow up unless otherwise noted in visit notes/problem list details Initial Weight: Not Recorded Date -?-?-?-?-?-?-?-?-?-?-?-?- EGA [...] Negative 145 -?-?-?-?-?-?-?-?-?-?-?-?- JV- no further mamta leespenser x 2 weeks now. has anatomy scan today at 12:30. has a lot of dilated varicosities and one that feels like a tiny clot at her nieto. If no problems on us today we will start baby asa. 01/27/25 -?-?-?-?-?-?-?-?-?-?-?-?- 24w 3d 187 lb 8 oz 108/70 Nega tive -?-?-?-?-?-?-?-?-?-?-?-?- Negative 150 24 -?-?-?-?-?-?-?-?-?-?-?-?- KW- no vb/lof/ct x. good fm. placenta no longer low lying. glucose discussed. 02/25/25 -?-?-?-?-?-?-?-?-?-?-?-?- 28w 4d 189 lb 5 oz 118/75 Nega tive -?-?-?-?-?-?-?-?-?-?-?-?- Negative 140 29 -?-?-?-?-?-?-?-?-?-?-?-?- SM- no vb lof go od fm no regular ctx discussed varicose veins rhogam given ACOG First Trimester First Trimester: Desire for , Alcohol, Tobacco Cessation, Illicit/Recreational Drug/Substance Use, Intimate Partner Violence, Barriers to care, Unstable Housing, Communication Barriers, Environmental/Work Hazards, Anticipated Course of Care, Toxoplasmosis Precations, Use of Any medications, Sexual activity, Exercise, Dental Care, Sauna/Hot tub use, Seat Belt use, Childbirth classes/Hospital facilities, Travel, Indications for Ultrasound and Screening for Aneuploidy; Discussed Office Procedures Injections Is this a patient provided medication?: No Office Meds RhoGAM Ultra-Filtered PLUS 1,500 unit (300 mcg) intramuscular syringe Performing Provider: Harriett Acevedo MD Performing Location: [facility] Administered by: Yadi Almeida on 02/25/25 10:00 Dose Route Admin Location Dispensed Lot Number Expiration Date Pack age NDC NDC Direct Care Staffer 1,500 unit IM left gluteal 1 ea [id number] 11/26/26 06615-584-58 [id number] [facility] Results POC Urinalysis 2 Dip (Clinic) Office Urine Glucose Negative Last Edit by Yadi Almeida on 02/25/25 10:03 Office Urine Protein Negative Last Edit by Yadi Almeida on 02/25/25 10:03 Coding Level of Care Code OB Routine Diagnoses Family history of genetic disease carrier Z84.81 Rh negative status during O26.899; Z67.91 AMA (advanced maternal age) multigravida 35+ O09.529 History of miscarriage, currently O09.299 Obesity affecting O99.210 Supervision of high-risk O09.90 24 weeks gestation of Z3A.24 Weeks of gestation: 24 weeks ASCUS of cervix with negative high risk HPV R87.610 Assessment and Plan Assessment and Plan (1) Family history of genetic disease carrier: Status: Acute Comment: Sister & brother in law carriers for Cockayne Syndrome and have children dx with or passed from (2) Rh negative status during : Status: Acute Comment: A-, Rhogam as needed and PRN (3) AMA (advanced maternal age) multigravida 35+: Status: Acute Comment: genetic counseling- declined testing. (4) History of miscarriage, currently : Status: Acute Comment: x2; 2018 (5) Obesity affecting : Status: Acute Comment: BMI 30.9; HgBA1C ordered w/NOB (6) Supervision of high-risk : Status: Acute Comment: PRR , HORTENCIA 05/16, PC: Kirk Celaya Steven, Marline & Fab, : Helio (7) : Status: Acute Qualifiers: Weeks of gestation: 24 weeks Qualified Code(s): Z3A.24 - 24 weeks gestation of Comment: Discussed genetic/carrier testing - declined. DOC ONLY. (8) ASCUS of cervix with negative high risk HPV: Status: Acute Comment: pap in 2019 negative. pap 2024 ascus w/neg hpv=repeat pap 2027 Orders: Orders Rhogam Injection Today O26.899 - Other specified related conditions, unspecified trimester, Z67.91 - Unspecified blood type, Rh negative POC Urinalysis 2 Dip (Clinic) Today Plan Details Follow Up: 03/16/25 (8:30 with CAITIE okay to book, please only book with DRs for appointment ) 02/25/25 1018 <Electronically signed by Harriett genao MD> Date _ Harriett Dunlap Signature: Date (if applicable) CC: ~ [facility] Work Phone: Reason for referral (narrative)No reason for referral information availableWBluffton Hospital Work Phone: Summary Purpose Family History No Family History Records Found Relationship Condition Age at Onset Recorded Date/T [place] grandmother Malignant neoplasm of colon 81 Hypertension Unknown sister Hypertension 40 grandfather Cerebrovascular accident (CVA) 75 Advance Directives No Advanced Directives Records FoundNo Advanced Directives Records Found Chief Complaint and Reason for Visit Chief Complaint Admit Date Annual (COSMETIC SURGEON) July 21, 2024 10: 52am Reason for Visit Admit Date Encounter for routine gynecological exam ination July 21, 2024 10:52am Chief Complaint Admit Date Annual (COSMETIC SURGEON) July 21, 2024 10: 52am Amb Documentation [...] 03, 2024 9:07am Bleeding in early December 03 025 9:07am Family history of genetic disease sg r December 03, 2024 9:07am History of miscarriage, currently pregna nt December 03, 2024 9:07am Low lying placenta with hemorrhage, seco nd trimester December 03, 2024 9:07am Obesity affecting December 03 025 9:07am December 03, 2024 9:07 am [...] Supervision of high-risk Augus t 2024 9:48am Chief Complaint Admit Date Amb Documentation November 11, 2024 9:27a m *EST* NOB LMP 08/09, HORTENCIA 05/16November 12 10:36am 15w3d, spotting since Monday November 25, 2024 12:52pm Hemorrhage in early , unspecifi ed December 03, 2024 7:49am Rhogam December 03, 2024 9:07 am 20wk ob *ok per SM December 30, 2024 9: 48am supervision of high-risk Augus t 2024 12:14pm Chief Complaint Admit Date Amb Documentation November 11, 2024 9:27a m *EST* NOB LMP 08/09, HORTENCIA 05/16November 12 10:36am 15w3d, spotting since Monday November 25, 2024 12:52pm Hemorrhage in early , unspecifi ed December 03, 2024 7:49am Rhogam December 03, 2024 9:07 am 20wk ob *ok per SM December 30, 2024 9: 48am supervision of high-risk Augus 2024 12:14pm 24wk ob January 27, 2025 2:07pm Reason for Visit Admit Date AMA (advanced [...] currently pregna nt December 03, 2024 9:07am Obesity affecting December 03, 2 025 9:07am December 03, 2024 9:07 am Rh negative status during December 03, 2024 9:07am Supervision of high-risk December 03, 2024 9:07am Low lying placenta with hemorrhage, seco nd trimester December 03, 2024 9:07am AMA (advanced maternal age) multigravida 35+ December 30, 2024 9:48am ASCUS of cervix with negative high risk HPV December 30, 2024 9:48am Bleeding in early December 30, 2024 9:48am Family history of genetic disease sg r December 30, 2024 9:48am History of miscarriage, currently pregna nt December 30, 2024 9:48am Obesity affecting December 30, 2024 9:48am December 30, 2024 9: 48am Rh negative status during Augu st 2024 9:48am Supervision of high-risk Augus t 2024 9:48am Low lying placenta with hemorrhage, seco nd trimester December 30, 2024 9:48am AMA (advanced maternal age) multigravida 35+ January 27, 2025 2:07pm ASCUS of cervix with negative high risk HPV January 27, 2025 2:07pm Bleeding in early January [id number] 2:07pm Family history of genetic disease sg r January 27, 2025 2:07pm History of miscarriage, currently pregna nt January 27, 2025 2:07pm Obesity affecting January 272024 2:07pm January 27, 2025 2:07pm Rh negative status during [facility]2024 2:07pm Supervision of high-risk [facility] 2024 2:07pm Chief Complaint Admit Date Amb Documentation November 11, 2024 9:27a m *EST* NOB LMP 08/09, HORTENCIA 05/16November 12 10:36am 15w3d, spotting since Monday November 25, 2024 12:52pm Hemorrhage in early , unspecifi ed December 03, 2024 7:49am Rhogam December 03, 2024 9:07 am 20wk ob *ok per SM December 30, 2024 9: 48am supervision of high-risk Augus t 2024 12:14pm 24wk ob January 27, 2025 2:07pm 28wk ob/glucose February 25, 2025 9 :22am Reason for Visit Admit Date AMA (advanced [...] high risk HPV December 03, 2024 9:07am Family history of genetic disease sg r December 03, 2024 9:07am History of miscarriage, currently pregna nt December 03, 2024 9:07am Obesity affecting December 03, 2 025 9:07am December 03, 2024 9:07 am Rh negative status during December 03, 2024 9:07am Supervision of high-risk December 03, 2024 9:07am Bleeding in early December 03, 025 9:07am Low lying placenta with hemorrhage, seco nd trimester December 03, 2024 9:07am AMA (advanced maternal age) multigravida 35+ December 30, 2024 9:48am ASCUS of cervix with negative high risk HPV December 30, 2024 9:48am Family history of genetic disease sg r December 30, 2024 9:48am History of miscarriage, currently pregna nt December 30, 2024 9:48am Obesity affecting December 30, 2024 9:48am December 30, 2024 9: 48am Rh negative status during Augu st 2024 9:48am Supervision of high-risk Augus t 2024 9:48am Bleeding in early December 30, 2024 9:48am Low lying placenta with hemorrhage, seco nd trimester December 30, 2024 9:48am AMA (advanced maternal age) multigravida 35+ January 27, 2025 2:07pm ASCUS of cervix with negative high risk HPV January 27, 2025 2:07pm Family history of genetic disease sg r January 27, 2025 2:07pm History of miscarriage, currently pregna nt January 27, 2025 2:07pm Obesity affecting January 272024 2:07pm January 27, 2025 2:07pm Rh negative status during Sept emb2024 2:07pm Supervision of high-risk Sept mb2024 2:07pm Bleeding in early January 272024 2:07pm AMA (advanced maternal age) multigravida 35+ February 25, 2025 9:22am ASCUS of cervix with negative high risk HPV February 25, 2025 9:22am Family history of genetic disease sg r February 25, 2025 9:22am History of miscarriage, currently pregna nt February 25, 2025 9:22am Obesity affecting February 9:22am February 25, 2025 9 :22am Rh negative status during Octo leonard 2024 9:22am Supervision of high-risk Octob er 2024 9:22am Additional Source Comments INFORMATION SOURCE (unrecogn ized section and content) DATE CREATED AUTHOR 02/13/[address] [facility] DATE CREATED AUTHOR AUTHOR'S ORGANIZ ATION 03/16/2025 [facility] Care Teams (unrecognized sec tion and content) [...] Member Role/Relationship Status Dates Yadi Rojas NP, VISUAL DESIGNER-C Attending Provider Active Start: November 12, 2024 [...] Inactive Member Role/Relationship Status Dates Dr. Harriett Aceevdo MD Attending Provider Active Start: November 12, 2024 End: November 12, 2024 Team Status: Inactive Member Role/Relationship Status Dates Yadi Rojas VISUAL DESIGNER, VISUAL DESIGNER-C Attending Provider Active Start: November 12, 2024 End: November 12, 2024 Team Status: Active Member Role/Relationship Status Dates Clara Araiza RN Attending Provider Active St art: November 11, 2024 Team Status: Inactive Member Role/Relationship Status Dates Dr. Harriett Acevedo MD Attending Provider Active Start: November 12, 2024 End: November 12, 2024 Team Status: Inactive Member Role/Relationship Status Dates Yadi Rojas VISUAL DESIGNER, VISUAL DESIGNER-C Attending Provider Active Start: November 12, 2024 [...] Member Role/Relationship Status Dates Yadi Rojas NP, VISUAL DESIGNER-C Attending Provider Active Start: November 12, 2024 [...] December 30, 2024 End: December 30, 2024 Team Status: Inactive Member Role/Relationship Status Dates Dr. Harriett Acevedo MD Attending Provider Active Start: December 30, 2024 End: December 30, 2024 Dr. Harriett Acevedo MD Referring Provider Active Start: December 30, 2024 End: December 30, 2024 No Primary Care Physician Primary Care Provider Active Start: December 30, 2024 End: December 30, 2024 Team Status: Inactive Member Role/Relationship Status Dates No Primary Care Physician Primary Care Provider Active Start: January 27, 2025 End: January 27, 2025 No Primary Care Physician Referring Provider Active Start: January 27, 2025 End: January 27, 2025 Coby Wong CNM Attending Provider Active S tart: January 27, 2025 End: January 27, 2025 Team Status: Active Member Role/Relationship Status Dates No Primary Care Physician Primary care physician Activ e Team Status: Active Member Role/Relationship Status Dates Clara Araiza RN Attending physician Active S tart: November 11, 2024 Team Status: Inactive Member Role/Relationship Status Dates Dr. Harriett Acevedo MD Attending physician Active Start: November 12, 2024 End: November 12, 2024 Team Status: Inactive Member Role/Relationship Status Dates Yadi Rojas NP VISUAL DESIGNER-C Attending physician Active Start: November 12, 2024 End: November 12, 2024 Team Status: Inactive Member Role/Relationship Status Dates Dr. Toma Gautam DO Attending physician Acti ve Start: November 25, 2024 End: November 25, 2024 Team Status: Inactive Member Role/Relationship Status Dates Dr. Harriett Acevedo MD Attending physician Active Start: December 03, 2024 End: December 03, 2024 Dr. Harriett Acevedo MD Referring Provider Active Start: December 03, 2024 End: December 03, 2024 No Primary Care Physician Primary care physician Activ e Start: December 03, 2024 End: December 03, 2024 Team Status: Inactive Member Role/Relationship Status Dates No Primary Care Physician Primary care physician Activ e Start: December 03, 2024 End: December 03, 2024 No Primary Care Physician Referring Provider Active Start: December 03, 2024 End: December 03, 2024 Dr. Toma Gautam DO Attending physician Acti ve Start: December 03, 2024 End: December 03, 2024 Team Status: Inactive Member Role/Relationship Status Dates Dr. Toma Gautam DO Attending physician Acti ve Start: December 30, 2024 End: December 30, 2024 No Primary Care Physician Primary care physician Activ e Start: December 30, 2024 End: December 30, 2024 No Primary Care Physician Referring Provider Active Start: December 30, 2024 End: December 30, 2024 Team Status: Inactive Member Role/Relationship Status Dates Dr. Harriett Acevedo MD Attending physician Active Start: December 30, 2024 End: December 30, 2024 Dr. Harriett Acevedo MD Referring Provider Active Start: December 30, 2024 End: December 30, 2024 No Primary Care Physician Primary care physician Activ e Start: December 30, 2024 End: December 30, 2024 Team Status: Inactive Member Role/Relationship Status Dates No Primary Care Physician Primary care physician Activ e Start: January 27, 2025 End: January 27, 2025 No Primary Care Physician Referring Provider Active Start: January 27, 2025 End: January 27, 2025 Coby Wong CNM Attending physician Active Start: January 27, 2025 End: January 27, 2025 Team Status: Inactive Member Role/Relationship Status Dates No Primary Care Physician Primary care physician Activ e Start: February 25, 2025 End: February 25, 2025 No Primary Care Physician Referring Provider Active Start: February 25, 2025 End: February 25, 2025 Dr. Harriett Acevedo MD Attending physician Active Start: February 25, 2025 End: February 25, 2025 Team Status: Inactive Member Role/Relationship Status Dates No Primary Care Physician Primary care physician Activ e Start: February 25, 2025 End: February 25, 2025 Dr. Harriett Acevedo MD Attending physician Active Start: February 25, 2025 End: February 25, 2025 Dr. Harriett Acevedo MD Referring Provider Active Start: February 25, 2025 End: February 25, 2025 Goals (unrecognized section and content) Type Care Experience svdLabor Preferences -CB/BF classes: []labor support person: []labor intervention preferences: []pain management options preferred: []cut cord/dad catch: []: []PP control planned: []discussed possible routes of delivery and associated risks: []special requests: [] FOR RECORDS PERTAINING TO PATIENTS WHO ARE [...] BE BASED ON THE PRIMARY CLINICAL RECORDS. [email or web address] provides no warranty or guarantee of the accuracy or completeness of information in this document.
[2025-04-03 19:35] VITALS: BMI 32.9
[2025-04-03 20:17] VITALS: BP 107/69; PULSE 96; RESP 18; TEMP 36.4; O2SAT 98
[2025-04-04] VITALS: BP 93/57; PULSE 80; RESP 16; TEMP 36.4; O2SAT 97
[2025-04-04] MEDS: Lactated Ringers 1,000 ML 15 ML IV (03:30)
[2025-04-04] MEDS: Cefazolin 2 GM in 0.9% Normal Saline (100mL Bag) 100 ML IV ×2 (03:30→11:10)
[2025-04-04] MEDS: 0.9% Saline Lock 10 ML Syringe IV (03:30)
[2025-04-04 03:37] VITALS: BP 94/53; PULSE 82; RESP 17; TEMP 36.5; O2SAT 100
[2025-04-04 09:29] VITALS: BP 110/67; PULSE 97; RESP 16; TEMP 36.5; O2SAT 98
--- NOTE | 2025-04-04 10:19 | DS.PCM_ITS ---
Providers Date of Admission: 04/03/25 Primary Care Physician: Nahum Cole PA-C Reason For Visit: CELLULITIS OF LEG IN Medications at Discharge Home Medications docosahexaenoic acid 200 mg capsule ( DHA) mg PO 11/11/24 Weight / BMI Weight Weight: 192 lb Body Mass Index (BMI) 32.9 ABG / Lab / Microbiology Data 04/03/25 17:13 04/03/25 17:13 Laboratory: Laboratory Results - last 24 hr 04/03/25 17:13: WBC 5.6, RBC 3.55 L, Hgb 10.9 L, Hct 31.2 L, MCV 87.9, MCH 30.7, MCHC 34.9, RDW Std Deviation 40.5, RDW Coeff of Mohini 12.9, Plt Count 113 L, MPV 9.8, Immature Gran % (Auto) 0.700, Neut % (Auto) 63.7, Lymph % (Auto) 23.8, [place] % (Auto) 8.0, Eos % (Auto) 2.7, Baso % (Auto) 1.1 H, Absolute Neuts (auto) 3.6, Absolute Lymphs (auto) 1.34, Nucleated RBC % 0, Sodium 138, Potassium 3.2 L, Chloride 105, Carbon Dioxide 21.7, Anion Gap 11, BUN 8, Creatinine 0.41 L, Estim Creat Clear Calc 205.59, Est GFR (MDRD) Non-Af 132, BUN/Creatinine Ratio 20.6 H, Glucose 95, Calcium 8.5, Total Bilirubin 0.32, AST 15, ALT 6, Alkaline Phosphatase 87, Total Protein 6.1, Albumin 3.4 L, Globulin 2.7, Albumin/Globulin Ratio 1.2 04/03/25 17:26: Urine Color Yellow, Urine Clarity Sl. Cloudy, Urine pH 7.0, Ur Specific [place] 1.010, Urine Protein Negative, Urine Glucose (UA) Normal, Urine Ketones Negative, Urine Occult Blood Negative, Urine Nitrite Negative, Urine Bilirubin Negative, Urine Urobilinogen Normal, Ur Leukocyte Esterase Negative, Urine RBC 0-5 SEEN, Urine WBC 0-5 SEEN, Ur Squamous Epith Cells 5-10 SEEN, Urine Bacteria 0 SEEN, Urine Mucus 0 SEEN Radiography Diagnostic Testing: Radiology Impression Venous Doppler Study 04/03/25 14:56 Interpretation Summary Deep veins of the left lower extremity are patent and compressible segmentally. There is no evidence of left lower extremity deep vein thrombosis. Valvular competence appears intact within the proximal deep venous system on the left . The left great saphenous vein appears patent and compressible segmentally. Acute superficial thrombophlebitis is noted in varicosities about the left knee and proximal calf, as well as on the left proximal and mid- pre-tibial surface. Ordering Physician: Bruce Garcia Performed By: Flaquita Gimenez RVT Discharge Plan Admission Admit Date/Time: 04/03/25 17:10 Attending Provider: Toma Gautam Primary Care Provider: Nahum Cole Consulting Providers: Harriett Acevedo Discharge Orders/Prescriptions Prescriptions: No Action DHA 200 mg capsule PO Referrals / Follow Up: Nahum Cole PA-C [Primary Care Provider, Medical]
--- NOTE | 2025-04-04 10:27 | HP.PCM.OB_ITS ---
HPI - General General Date of Admission: 04/03/25 HPI Narrative SHARA MONTES, is a 34 F at 34+ weeks gestation presented to the emergency room with swollen left leg and possible DVT. Patient is a and has had problems with varicose veins throughout her , her sisters have had issues as well as her mother. She indicated that last week she sewed most of the week and was sitting and she thinks this may have exacerbated the problem. Patient has been on oral Keflex for some redness in her left leg and upon presentation to the emergency room today the emergency room physician felt that the patient needed IV antibiotics. Doppler showed no evidence of DVT but there was superficial thrombosis of the left leg. The has been uneventful except for low-lying placenta earlier in which resolved. Patient also recently had some skin excisions from the right face, scalp behind the left ear, and above the left breast which are healing well with some stitches still in place. Pathology was not sent on these removals so they are apparently presumed benign. Maternal Data Information HORTENCIA Calculator Estimated Delivery Date Method Current Current Estimate 05/16/25 LMP (Certain) 34w 0d Gestational age: 34+ weeks gestation [facility] Medical History Seasonal allergies Medical History unable to obtain Home Medications Medication Instructions Recorded Last Taken Type docosahexaenoic acid 200 mg mg PO 11/11/24 Unknown His tory capsule ( DHA) Allergy/AdvReac Type Severity Reaction Status Date / Time No Known Allergies Allergy Verified 04/03/25 21:21 Family History Grandmother Colon cancer, Onset Age: 81 Hypertension Sister Hypertension, Onset Age: 40 Grandfather CVA (cerebral vascular accident), Onset Age: 75 Family History no significant family his Surgical History unable to obtain Social History adopted: No household members: spouse and children number of children: 5 current occupation: [employer] current occupational exposures/hazards: No pets and animals: Yes pets and animals: farm animals history of recent travel: Yes (September 2024 - ) out of state: Yes out of country: No sexually active: Yes Smoking Status: Never smoker second hand exposure: No alcohol intake: never substance use type: does not use well-balanced diet: daily or most days caffeine: Yes Type: coffee Number of servings: 1 eating out: rarely or never during the past year weight has: remained stable what type of physical activity do you participate in: none kiana/gnosticist: [facility] seatbelt use: always do you feel safe at home: Yes additional social history: : Liliane Pritchard History 8 Elective abortions Hx Para 5 Spontaneous abortions 2 Hx # Term Pregnancies 5 Ectopic pregnancies Hx # Pregnancies Multiple births # of living children 5 Past Pregnancies Del. Date Name GA/Weeks Outcome Route Bth Weight Infant Gen Labor Lgth Anesthesia Del Locatn Provider FOB 12/26/10 [place] 41 live - full term 7lbs 5oz Female none [facility] Hel[place] 07/15/12 [place] 40 live - full term 7lbs 12oz Male no ne Home Helio 05/31/14 [place] 40 live - full term 7lbs 8oz Male no ne Home Helio 05/05/16 [place] 40 live - full term 7lbs 2oz Male no ne Home Helio 06/14/17 7 spontaneous 04/13/18 10 spontaneous 03/20/19 [place] 40 live - full term 7lbs 13oz Male none [facility] Delivery Date: 03/20/19 Last Updated by: Clara Araiza RN "Vein problems", Rn Chemical Dependency KRYSTYNA for delivery Visit Details Expected Delivery Route/Plan Labor Preferences- CB/BF classes: [] labor support person: [] labor intervention preferences: [] pain management options preferred: [] cut cord/dad catch: [] : [] PP control planned: [] discussed possible routes of delivery and associated risks: [] special requests: [] Plans Covid status: [] Flu vaccine: declined Tdap vaccine: declined Rhogam: given 02/25 LARC form signed: declined movement and labor precautions reviewed. Problem list reviewed and updated with the most current plan of care details and appropriate orders placed. Relevant counseling for the gestational age provided. Continue routine care and follow up unless otherwise noted in visit notes/problem list details OB Flowsheet Initial Weight: Not Recorded Date - - - - - - - - - - - - - EGA Weight BP Urine Prot - - - - - - - - - - - - - Glucose FHR FuHt Pres Dilation - - - - - - - - - - - - - Effaced St Visit Note 11/12/24 - - - - - - - - - - - - - 13w 4d 176 lb 115/76 - - - - - - - - - - - - - 154 - - - - - - - - - - - - - SM- CRL 6.8cm co ns with LMP 11/25/24 - - - - - - - - - - - - - 15w 3d 178 lb 106/69 Negative - - - - - - - - - - - - - Negative 150 - - - - - - - - - - - - - JV- patient is mamta angelo seen urgently today for bleeding. She states it is mild and started sunday, went to brown sunday, red sunday, light pink yesterday, and nothing today. She denies recent intercourse or heavy lifting. ultrasound is reassuring and on exam there is a cervical ectropion. patient reassured. if ble amie starts again this week will order a cervical length ultrasound prior to her 20 week scan. 12/30/24 - - - - - - - - - - - - - 20w 3d 183 lb 98/66 Negative - - - - - - - - - - - - - Negative 145 - - - - - - - - - - - - - JV- no further b leeding x 2 weeks now. has anatomy scan today at 12:30. has a lot of dilated varicosities and one that feels like a tiny clot at her nieto. If no problems on us today we will start baby asa. 01/27/25 - - - - - - - - - - - - - 24w 3d 187 lb 8 oz 108/70 Nega tive - - - - - - - - - - - - - Negative 150 24 - - - - - - - - - - - - - KW- no vb/lof/ct x. good fm. placenta no longer low lying. glucose discussed. 02/25/25 - - - - - - - - - - - - - 28w 4d 189 lb 5 oz 118/75 Nega tive - - - - - - - - - - - - - Negative 140 29 - - - - - - - - - - - - - SM- no vb lof go od fm no regular ctx discussed varicose veins rhogam given 03/16/25 - - - - - - - - - - - - - 31w 2d 191 lb 8 oz 117/65 Nega tive - - - - -- - - - - - - - - Negative 135 31 - - - - - - - - - - - - - Sm- no vb lof go od fm no reuglar ctx NST FHR Rate Baby A FHR Category:: Category I Uterine Activity:: none Vital Signs Vital Signs Vital Signs: 04/03/25 13:37 04/03/25 17:46 04/03/25 20:17 Temperature 96.5 F L 97.8 F Temperature Source Temporal Temporal Pulse Rate 100 64 Respiratory Rate 18 18 Blood Pressure 114/74 134/78 H Blood Pressure Mean 87 96 BP Systolic BP Diastolic Blood Pressure Source Blood Pressure Position Blood Pressure Location Pulse Ox 100 99 Oxygen Delivery Method Room Air 04/03/25 20:17 04/03/25 20:17 04/03/25 20:17 Temperature Temperature Source Pulse Rate 96 Respiratory Rate 18 Blood Pressure 107/69 Blood Pressure Mean BP Systolic 107 BP Diastolic 69 Blood Pressure Source Blood Pressure Position Blood Pressure Location Pulse Ox Oxygen Delivery Method 04/03/25 20:17 04/03/25 20:17 04/04/25 00:00 Temperature 97.5 F L Temperature Source Axillary Pulse Rate Respiratory Rate Blood Pressure Blood Pressure Mean BP Systolic BP Diastolic Blood Pressure Source Blood Pressure Position Blood Pressure Location Pulse Ox 98 Oxygen Delivery Method 04/04/25 00:00 04/04/25 03:37 04/04/25 03:37 Temperature 97.5 F L 97.7 F L Temperature Source Axillary Temporal Temporal Pulse Rate 80 82 Respiratory Rate 16 17 Blood Pressure 93/57 L 94/53 L Blood Pressure Mean 69 66 BP Systolic BP Diastolic Blood Pressure Source Monitor Monitor Blood Pressure Position Semi-Fowlers Semi-Fowlers Blood Pressure Location Right Arm Right Arm Pulse Ox 97 100 Oxygen Delivery Method Room Air Room Air 04/04/25 09:29 04/04/25 09:29 Temperature 97.7 F L Temperature Source Temporal Temporal Pulse Rate 97 Respiratory Rate 16 Blood Pressure 110/67 Blood Pressure Mean 81 BP Systolic BP Diastolic Blood Pressure Source Monitor Blood Pressure Position Semi-Fowlers Blood Pressure Location Right Arm Pulse Ox 98 Oxygen Delivery Method Room Air Weight Weight: 192 lb Body Mass Index (BMI) 32.9 Physical Exam Const alert, oriented x3 and no apparent distress General Appearance: cooperative and comfortable HEENT normocephalic Face and Sinus: normal facial exam Neck full ROM Resp normal respiratory effort and no retractions Cardio regular rate and regular rhythm Extremity Extremity Narrative: prominent varicose veins with redness behind left knee and inner left thigh about prison between knee and hip. Tender to palpation but no extension of redness to surrounding tissue; redness follows path of inner vein in thigh. Neuro moves all extremities, no focal motor deficits and no sensory deficits noted Psych mental status grossly normal, affect normal, speech normal and activity/motor behavior normal Labs Labs Labs: Blood Type A NEGATIVE Antibody Screen NEGATIVE Hct, (37-47) 31.2 % L Hgb, (12.0-15.0) 10.9 g/dL L Obstetrics Ultrasound Syphilis Total Ab, (Nonreactive) Nonreactive Rubella IgG Antibody, (Nonreactive) REAC Hep Bs Antigen, (Nonreactive) Nonreactive Hepatitis C Antibody, (Nonreactive) Nonreactive Chlamydia DNA (NING), (Negative) Negative N.gonorrhoeae DNA (NING), (Negative) Negative HIV 1&2 Antibody, (Nonreactive) Nonreactive Glucose 1 Hr 50 gm, (70-140) 88 mg/dL Group B Strep DNA, (Negative) Negative Rhogam given: Yes Assessment & Plan (1) Superficial vein thrombosis: (2) Currently : (3) Cellulitis of left leg: PLAN: Discussed treatment of superficial thrombophlebitis and treatment options at 34 weeks gestation. Recommended elevation of leg when not walking and wearing thigh-high support hose. Will continue Keflex for 7 more days and start Lovenox daily. Discussed that this might be switched to heparin as delivery nears. Recommended following up in office next week.
--- NOTE | 2025-04-04 10:40 | PCM.DC.SUM ---
Providers Date of Admission: 04/03/25 Primary Care Physician: Nahum Cole PA-C Reason For Visit: CELLULITIS OF LEG IN Diagnosis Discharge Diagnosis (1) Superficial vein thrombosis: Status: Acute Code(s): I82.890 - Acute embolism and thrombosis of other specified veins (2) Currently : Status: Acute Code(s): Z34.90 - Encounter for supervision of normal , unspecified, unspecified trimester (3) Cellulitis of left leg: Status: Acute Code(s): L03.116 - Cellulitis of left lower limb Plan: Discussed treatment of superficial thrombophlebitis and treatment options at 34 weeks gestation. Recommended elevation of leg when not walking and wearing thigh-high support hose. Will continue Keflex for 7 more days and start Lovenox daily. Discussed that this might be switched to heparin as delivery nears. Recommended following up in office next week. Medications at Discharge Home Medications docosahexaenoic acid 200 mg capsule ( DHA) mg PO 11/11/24 cephalexin 500 mg capsule 500 mg PO Q8H #20 caps 04/04/25 enoxaparin 40 mg/0.4 mL subcutaneous syringe 40 mg (0.4 mL) subcut DAILY thrombophlebitis #4 mL 04/04/25 Hospital Course Summary of Care Provided Hospital Course: Patient was admitted to labor and delivery overnight and had IV Ancef. We discussed treatment options and decided to continue care at home with oral antibiotics and Lovenox. Patient is to follow-up next week in the office. Weight / BMI Weight Weight: 192 lb Body Mass Index (BMI) 32.9 ABG / Lab / Microbiology Data 04/03/25 17:13 04/03/25 17:13 Laboratory: Laboratory Results - last 24 hr 04/03/25 17:13: WBC 5.6, RBC 3.55 L, Hgb 10.9 L, Hct 31.2 L, MCV 87.9, MCH 30.7, MCHC 34.9, RDW Std Deviation 40.5, RDW Coeff of Mohini 12.9, Plt Count 113 L, MPV 9.8, Immature Gran % (Auto) 0.700, Neut % (Auto) 63.7, Lymph % (Auto) 23.8, [place] % (Auto) 8.0, Eos % (Auto) 2.7, Baso % (Auto) 1.1 H, Absolute Neuts (auto) 3.6, Absolute Lymphs (auto) 1.34, Nucleated RBC % 0, Sodium 138, Potassium 3.2 L, Chloride 105, Carbon Dioxide 21.7, Anion Gap 11, BUN 8, Creatinine 0.41 L, Estim Creat Clear Calc 205.59, Est GFR (MDRD) Non-Af 132, BUN/Creatinine Ratio 20.6 H, Glucose 95, Calcium 8.5, Total Bilirubin 0.32, AST 15, ALT 6, Alkaline Phosphatase 87, Total Protein 6.1, Albumin 3.4 L, Globulin 2.7, Albumin/Globulin Ratio 1.2 04/03/25 17:26: Urine Color Yellow, Urine Clarity Sl. Cloudy, Urine pH 7.0, Ur Specific [place] 1.010, Urine Protein Negative, Urine Glucose (UA) Normal, Urine Ketones Negative, Urine Occult Blood Negative, Urine Nitrite Negative, Urine Bilirubin Negative, Urine Urobilinogen Normal, Ur Leukocyte Esterase Negative, Urine RBC 0-5 SEEN, Urine WBC 0-5 SEEN, Ur Squamous Epith Cells 5-10 SEEN, Urine Bacteria 0 SEEN, Urine Mucus 0 SEEN Radiography Diagnostic Testing: Radiology Impression Venous Doppler Study 04/03/25 14:56 Interpretation Summary Deep veins of the left lower extremity are patent and compressible segmentally. There is no evidence of left lower extremity deep vein thrombosis. Valvular competence appears intact within the proximal deep venous system on the left . The left great saphenous vein appears patent and compressible segmentally. Acute superficial thrombophlebitis is noted in varicosities about the left knee and proximal calf, as well as on the left proximal and mid- pre-tibial surface. Ordering Physician: Bruce Garcia Performed By: Flaquita Gimenez RVT D/C Instructions Discharge Activity: Return to Normal Activity May resume sexual activity in: No Restrictions Call your doctor if you observe: Fever of 101 or Higher, Calf discomfort and - (Redness spreading further on leg with increased tenderness of legs or skin) DC O2, CPAP, BIPAP Needs Home O2 Discharge instructions: No DC home with Oxygen: No Please Follow Up With: Harriett Acevedo MD When: Next week Meaningful Use Info Meaningful Use Meaningful Use Diagnoses (Choose all that apply): None applicable Discharge Plan Admission Admit Date/Time: 04/03/25 17:10 Attending Provider: Toma Gautam Primary Care Provider: Nahum Cole Consulting Providers: Harriett Acevedo Discharge Orders/Prescriptions Prescriptions: New enoxaparin 40 mg/0.4 mL Syringe 40 mg subcut DAILY Qty: 4 2RF cephalexin 500 mg capsule 500 mg PO Q8H Qty: 20 0RF Continued DHA 200 mg capsule PO Referrals / Follow Up: Nahum Cole PA-C [Primary Care Provider, Medical] Disposition Disposition (needs filled in before D/C Order can be placed): Home, Self Care
[2025-04-04] MEDS: Prenatal Vits Tablet 1 TABLET PO (11:09)
== END 2025-04-04 13:45 | disposition home or self-care (01) ==
LOC: ED 17:21 → WP 18:57
PROVIDERS: Admitting Provider Obstetrics & Gynecology; Emergency Provider Emergency Medicine; PCP Physician Assistant; Visit Provider Obstetrics & Gynecology
DX: O99.713 Diseases of the skin and subcutaneous tissue complicating pregnancy, third trimester (principal); L03.116 Cellulitis of left lower limb; Z3A.34 34 weeks gestation of pregnancy; O22.23 Superficial thrombophlebitis in pregnancy, third trimester; I82.812 Embolism and thrombosis of superficial veins of left lower extremity
CPT/HCPCS: 96365; 96366 ×2; 59025; 59050; 80053; 81001; 85025; 93971; 96372; 99221; 99284; A4216; G0378

== ENCOUNTER → 2025-04-23 | Outpatient (CLI) | payer MEDICAID, SELFPAY | END | disposition home or self-care (01) | LOC: LABSPEC 15:17 | PROVIDERS: PCP Physician Assistant; Referring Provider Obstetrics & Gynecology; Visit Provider Obstetrics & Gynecology | DX: O09.90 Supervision of high risk pregnancy, unspecified, unspecified trimester (principal); Z3A.00 Weeks of gestation of pregnancy not specified | CPT/HCPCS: 87081 ==

== ENCOUNTER → 2025-05-11 | Outpatient (CLI) | payer MEDICAID, SELFPAY ==
--- NOTE | 2025-05-11 08:51 | US_ITS ---
PROCEDURE: OB LIMITED WITH BIOMETRICS 05/11/2025 REASON FOR EXAM: GROWTH TECHNIQUE: Procedure Code: [id number] Modality: US Procedure: OB LIMITED WITH BIOMETRICS COMPARISON: 12/30/2024 FINDINGS LIMITATIONS: Limited exam due to baby's position - low in pelvis, head difficult to measure. FETUS: There is a single living intrauterine gestation. POSITION: position is cephalic. HEART RATE: The heart rate is 140 BPM and regular. BIOMETRICS: Based on composite biometry, the composite estimated gestational age by ultrasound is 37 weeks 6 days. LMP gestational age: 39 weeks 2 days LMP HORTENCIA: May 16, 2025 Sonographic gestational age: 27 weeks 6 days Sonographic HORTENCIA: May 26, 2025 ANATOMIC SURVEY: anatomy survey not performed. PLACENTA: The placenta is posterior. No demonstrated evidence of previa or abruption. AMNIOTIC FLUID: Within normal limits. DAVID measuring 13.8cm. Maximum vertical pocket (MVP) measuring 4.5cm. CERVIX: Not visualized due to shadowing from the skull. SONOGRAPHIC MEASUREMENTS: Bi-Parietal Diameter (BPD): 9.1 cm; 37 weeks 0 days Head Circumference (HC): 33.5 cm; 38 weeks 2 days Abdominal Circumference (AC): 35.1 cm; 39 weeks 0 days Femur Length (FL): 7.2 cm; 37 weeks 0 days Estimated weight: 3447 grams +/-517 grams (7 lb, 10 oz) EFW percentile: 46.5 % US/OB Limited With Biometrics IMPRESSION: 1. Single living intrauterine gestation estimated at 37 weeks 6 days by today's ultrasound criteria. Size equals dates with normal interval growth. 2. No acute abnormality detected. Reading Location: [id number]
== END | disposition home or self-care (01) ==
PROVIDERS: PCP Physician Assistant; Referring Provider Obstetrics & Gynecology; Visit Provider Obstetrics & Gynecology
DX: O09.529 Supervision of elderly multigravida, unspecified trimester (principal); Z3A.00 Weeks of gestation of pregnancy not specified
CPT/HCPCS: 76816